=== PATIENT | male | born 1960 | race African-American/Black ===

== ENCOUNTER 2017-12-26 07:35 | Inpatient (IN) | payer OTHER ==
[2017-12-26] MEDS ORDERED: Morphine INJ* 4 MG/ML 1 ML SYRINGE (NEW SYRINGE VERSION) ONE (07:40)
[2017-12-26] MEDS ORDERED: Morphine INJ* 4 MG/ML 1 ML CARPUJECT IV ONE (07:42)
[2017-12-26] MEDS ORDERED: Furosemide IV* 10 MG/ML VIAL (40 MG) ONE (07:42)
[2017-12-26] MEDS ORDERED: Furosemide IV* 10 MG/ML VIAL (40 MG) IV ONE (07:42)
--- OUTSIDE RECORDS SUMMARY | 2017-12-26 07:42 | XMS REPORT ---
:1960 External Reference #:[id number] Author Organization [facility] Address [address] [place] [address] Phone [phone] Care Team Providers Name Role Phone Bismark Pacheco M.D. 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 Active without macular edema, bi Onset: 12/02/2016 Type 2 diab with mild nonp rtnop Bismark Hernandez M.D. Active without macular edema, bi Onset: 12/02/2016 Combined form of senile cataract Bismark Hernandez M.D. Active Onset: 06/01/2015 Nonproliferative diabetic retinopathy Bismark Hernandez M.D. 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 Active type 2 diabetes mellitus Family History Date Family Member(s) Problem(s) Comments Father No Current Problems Mother No Current Problems Social History Type Date Description Comments Marital Status Legal Status: Occupation [employer] Occupation [employer] Work Status Full-Time Employment ETOH Use Rarely consumes alcohol Smoking Patient has never smoked Recreational Drug Use Denies Drug Use Daily Caffeine Consumes on average 1 cup of regular coffee per day Allergies, Adverse Reactions, Alerts Date Description Reaction Status Severity Comments 05/28/2015 NKDA active Medications Medication Date Status Form Strength Qnty SIG Indications Ordering Provider Lantus Active Solution 100Unit/M Breiman, Solostar /0000 Pen-Injec L Bismark saez M.D. Desipramine Active Tablets 50mg Breiman, HCL /0000 Bismark Mayers Metformin HCL Active Tablets 1000mg Breiman, /0000 Bismark Mayers Duloxetine HCL Active Caps DR 60mg Breiman, /0000 Part Bismark Mayers Novolog Active Solution 100Unit/M Breiman, Flexpen /0000 Pen-Injec L Bismark saez M.D. Humalog Active Solution 100Unit/M Breiman, Kwikpen /0000 Pen-Injec L Bismark saez M.D. Losartan Active Tablets 50mg Unknown Potassium /0000 Atorvastatin Active Tablets 20mg take 1 tablet Unknown Calcium /0000 by mouth every evening Trulicity Active Solution 1.5mg/0.5 Inject 0.5ML Unknown /0000 Pen-Injec ML Subcutaneously t Every Week Amlodipine Active Tablets 5mg Unknown Besylate /0000 Atenolol Hx Tablets 50mg Breiman, /0000 Bismark Grimm M.D. 12/03 Medications Administered in Office Medication Date Status Form Strength Qnty SIG Indications Ordering Provider Unclassified Administered Injection Bismark [employer]12 Omar Hernandez M.D. Results Description No Information Procedures Date CPT Code Description Status 06/01/2017 26467 Scanning Computerized Opthalmic Diagnostic Posterior Completed Seg Retina 06/01/2017 28186 Est Patient Comprehensive Exam Completed 12/02/2016 15852 Scanning Computerized Opthalmic Diagnostic Posterior Completed Seg Retina 12/02/2016 67949 Est Patient Comprehensive Exam Completed 06/02/2016 14630 Scanning Computerized Opthalmic Diagnostic Posterior Completed Seg Retina 06/02/2016 92645 Est Patient Comprehensive Exam Completed 12/03/2015 26362 Scanning Computerized Opthalmic Diagnostic Posterior Completed Seg Retina 12/03/2015 35680 Est Patient Comprehensive Exam Completed 06/01/2015 62839 Scanning Computerized Opthalmic Diagnostic Posterior Completed Seg Retina 06/01/2015 91881 Est Patient Comprehensive Exam Completed 12/02/2014 88989 Fundus Photography With Interpretation And Report Completed 12/02/2014 53525 Est Patient Comprehensive Exam Completed 05/19/2014 19403 Scanning Computerized Opthalmic Diagnostic Posterior Completed Seg Retina 05/19/2014 93593 Est Patient Intermediate Exam Completed 11/18/2013 48465 Est Patient Comprehensive Exam Completed 11/18/2013 77420 Determination Of Refractive State Completed 11/18/2013 39540 Fundus Photography With Interpretation And Report Completed 05/07/2013 67834 Scanning Computerized Opthalmic Diagnostic Posterior Completed Seg Retina 05/07/2013 21304 Est Patient Intermediate Exam Completed 12/07/2012 39806 Scanning Computerized Opthalmic Diagnostic Posterior Completed Seg Retina 12/07/2012 29535 Est Patient Intermediate Exam Completed 09/27/2012 94146 Injection Intravitreal Of A Pharmacologic Agent Completed 09/06/2012 47190 Scanning Computerized Opthalmic Diagnostic Posterior Completed Seg Retina 09/06/2012 84484 Est Patient Comprehensive Exam Completed 05/24/2011 95374 Scanning Computerized Opthalmic Diagnostic Posterior Completed Seg Retina 05/24/2011 00782 Est Patient Intermediate Exam Completed 11/16/2010 02908 Est Patient Intermediate Exam Completed 11/16/2010 16484 Determination Of Refractive State Completed 11/16/2010 20796 Scanning Computerized Opthalmic Diagnostic Posterior Completed Seg Retina 11/16/2010 15091 Scanning Laser W/Interp And Report Completed 11/16/2010 61697 Scanning Laser W/Interp And Report Completed 07/15/2010 85942 Scanning Laser W/Interp And Report Completed 07/15/2010 07901 Est Patient Intermediate Exam Completed 12/23/2009 81162 Destruction Lesion Retina, Photocoagulation Completed 12/04/2009 45488 Fluorescein Angiography Completed 11/20/2009 77092 Est Patient Intermediate Exam Completed 11/20/2009 45004 Scanning Laser W/Interp And Report Completed 06/23/2009 14149 Scanning Laser W/Interp And Report Completed 06/23/2009 80905 Est Patient Intermediate Exam Completed 12/12/2008 43112 Destruction Lesion Retina, Photocoagulation Completed 12/11/2008 10734 Destruction Lesion Retina, Photocoagulation Completed 12/09/2008 88820 Fluorescein Angiography Completed 12/04/2008 76052 Scanning Laser W/Interp And Report Completed 12/04/2008 63517 Est Patient Intermediate Exam Completed 08/26/2008 86432 Est Patient Intermediate Exam Completed 08/26/2008 75567 Scanning Laser W/Interp And Report Completed 03/24/2008 22666 Scanning Laser W/Interp And Report Completed 03/24/2008 77308 Est Patient Intermediate Exam Completed 12/24/2007 71058 Destruction Lesion Retina, Photocoagulation Completed 12/12/2007 79651 Destruction Lesion Retina, Photocoagulation Completed 12/04/2007 26050 Fluorescein Angiography Completed 11/30/2007 42304 Scanning Laser W/Interp And Report Completed 11/30/2007 84808 Est Patient Intermediate Exam Completed 07/20/2007 43331 Fundus Photography With Interpretation And Report Completed 07/20/2007 09927 Est Patient Comprehensive Exam Completed 06/27/2006 12808 Est Patient Comprehensive Exam Completed 06/06/2005 41838 Fundus Photography With Interpretation And Report Completed 06/06/2005 65952 Determination Of Refractive State Completed 06/06/2005 44591 Est Patient Comprehensive Exam Completed 03/18/2004 35689 Determination Of Refractive State Completed 03/18/2004 21573 Est Patient Comprehensive Exam Completed Plan of Care 12/04/2017 - Bismark Hernandez M.D.[id number] Type 2 diab with mild nonp rtnop without macular edema, biComments:Smoking can increase the risk of developing or worsening any eye related disease, as well as affect your overall health. If you are a smoker, we strongly recommend that you quit.If you are not a smoker , we strongly recommend that you do not start. I can detect diabetic changes in your eyes. Proper control of your diabetes is important for the health of your eyes. It is important that you keep all of your follow up appointments. Dr. Hernandez has sent a report to your primary care doctor, letting them know the current status of your retina.Follow up:6 Month Follow Up OCT MAC You can expect to have your eyes dilated at your next visit. If Dr. Belleoorders any additional testing, it may require extra time. We recommend that you bring sunglasses, asdilation drops often make you light sensitive until they wear off. We always recommend you bring someone to drive you home if you are uncomfortable driving with your eyes dilated. If you have any questions before your next visit, feel free to call our office at .[phone] Combined forms of age-related cataract, bilateralComments:You have been diagnosed with cataracts. If you are happy with your vision as it is now, then we willsee you at your next scheduled appointment. If you feel like your vision is getting worse before your scheduled appointment, please call Mar or Maria Victoria at [phone].
[2017-12-26] MEDS ORDERED: nitroGLYCERIN DRIP* 25,000 MCG/250 ML BTL ONE (07:49)
[2017-12-26 07:56] LABS: ABS Basophils 0 10^3/ul (0-0.2); ABS Eosinophils 0.1 10^3/ul (0-0.6); ABS Lymphocytes 3.3 10^3/ul (1.0-4.8); ABS Monocytes 0.9 10^3/ul (0-0.8); ABS Neutrophils 3.7 10^3/ul (1.5-7.7); ABS Nucleated RBC 0 10^3/ul; Eosinophil % 1.5 % (0-6); Hematocrit 38 % (42-52); Hemoglobin 12.6 g/dl (14.0-18.0); Mean Corpuscular HGB Conc 33 g/dl (31-36); Mean Corpuscular Hemoglobin 28 pg (27-31); Mean Corpuscular Volume 87 fL (80-94); Mean Platelet Volume 9 um3 (7.4-10.4); Nucleated Red Blood Cells % 0; Platelet Count 268 10^3/ul (150-450); Red Blood Count 4.44 10^6/ul (4.0-5.4); Red Cell Distribution Width 15 % (10.5-15)
[2017-12-26] MEDS ORDERED: Furosemide IV* 10 MG/ML 2 ML VIAL (20 MG) ONE (07:56)
[2017-12-26 08:15] LABS: EGFR Non-African American 68.8 (>60)
[2017-12-26] MEDS ORDERED: Iodixanol* (CONTRAST) 320 MG/ML 100 ML SDV IV ONE (08:28)
[2017-12-26] MEDS ORDERED: Perflutren Lipid Microsphere* 3 ML VIAL ONE (08:55)
[2017-12-26] MEDS ORDERED: Furosemide IV* 10 MG/ML 2 ML VIAL (20 MG) IV SLOW PU SCH (09:00)
--- NOTE | 2017-12-26 09:11 | RAD ---
HISTORY: Shortness of breath COMPARISONS: March 13, 2008 VIEWS: 1: frontal portable view of the chest at 7:55 AM FINDINGS: LINES AND TUBES: None. CARDIOMEDIASTINAL SILHOUETTE: The cardiomediastinal silhouette is normal for portable technique. PLEURA: The costophrenic angles are sharp. No pleural abnormalities are noted. LUNG PARENCHYMA: There is patchy alveolar opacification of the right mid and lower lung hammond] the left lower lung field. There is mild diffuse reticular pattern. ABDOMEN: The upper abdomen is clear. There is no subphrenic gas. BONES AND SOFT TISSUES: No bone or soft tissue abnormalities are noted. IMPRESSION: MIXED INTERSTITIAL AND AIRSPACE DISEASE PREDOMINANTLY OF THE MID AND LOWER LUNGS BILATERALLY. THE DIFFERENTIAL INCLUDES INFECTIOUS PNEUMONITIS AND CONSOLIDATION VERSUS PULMONARY INTERSTITIAL AND ALVEOLAR EDEMA.
[2017-12-26 09:48] LABS: Urine Appearance Clear; Urine Blood Negative (Negative); Urine Color Straw; Urine Ketones Negative (Negative); Urine Protein Negative (Negative); Urine Specific Gravity 1.006 (1.010-1.030); Urine Urobilinogen Negative (Negative)
--- NOTE | 2017-12-26 09:53 | ECHO ---
Patient: THEE LOWERY [facility] Rec#: [id number] : 1960 Date: 12/26/2017 Age: 57y Height: 182.88 cm / 72.0 in Weight: 113.4 kg / 249.9 lbs Sex: M BSA: 2.34 Room#: ED14 Admit Date#: 12/26/2017 Type: Inpatient Referring: Kennedy Ingram MD Reading: Kennedy Ingram MD Net Mender: Ludmila Garber JOVANNI CC: Bismark Pacheco MD Transthoracic Echocardiogram Indication: CP//SOB BP: 174/93 HR: 122 Rhythm: Tachycardia Findings History: DM,HTN,SVT. TO ED today with CP and SOB. Technical Comments: The study was technically limited due to the patient's inability to lay in the left lateral decubitus position. Completed at 0933. The study is technically limited due to patient being on BIPAP during study. Definity was used to enhance images. Study done with patient supine and HOB at 90 degrees. Left Ventricle: Moderate concentric left ventricular hypertrophy is observed. Severe global hypokinesis of the left ventricle is observed. There is severely decreased left ventricular systolic function. The estimated ejection fraction is 20-25%. The assessment of diastolic function is non-diagnostic. Left Atrium: The left atrium is slightly dilated. Right Ventricle: The right ventricular cavity size is normal. The right ventricular global systolic function is mildly to moderately reduced. Right Atrium: The right atrium is mild to moderately dilated. Aortic Valve: The aortic valve is trileaflet. There is no evidence of aortic regurgitation. There is no evidence of aortic stenosis. Mitral Valve: The mitral valve leaflets are mildly thickened. There is a trace of mitral regurgitation. There is no evidence of mitral stenosis. Tricuspid Valve: The tricuspid valve leaflets are normal. There is no evidence of tricuspid valve regurgitation. Unable to estimate the right ventricular systolic pressure. There is no tricuspid stenosis. Pulmonic Valve: The pulmonic valve appears normal. There is no evidence of pulmonic regurgitation. There is no pulmonic stenosis. Pericardium: The pericardium appears normal. Aorta: There is moderate dilatation of the ascending aorta.3.9 cm There is no dilatation of the aortic arch. There is moderate dilatation of the aortic root. Pulmonary Artery: The main pulmonary artery appears normal. Venous: Unable to accurately comment on the size collapsibility of the IVC as the patient in known to be on mechanical ventilation. The inferior vena cava is dilated. Contrast: Definity was used to optimize study. A total of 4 ml used. Intravenous contrast was used to enhance endocardial border definition. Summary: There was not any prior study for comparison. Conclusions The study is technically limited due to patient being on BIPAP during study. Definity was used to enhance images. Study done with patient supine and HOB at 90 degrees. Moderate concentric left ventricular hypertrophy is observed. Severe global hypokinesis of the left ventricle is observed. There is severely decreased left ventricular systolic function. The estimated ejection fraction is 20-25%. The right ventricular global systolic function is mildly to moderately reduced. There is no evidence of aortic stenosis. There is a trace of mitral regurgitation. There is no evidence of tricuspid valve regurgitation. Unable to estimate the right ventricular systolic pressure. The pericardium appears normal. There is moderate dilatation of the ascending aorta.3.9 cm Measurements Name Value Normal Range RVIDd (AP) 2D 3.5 cm (0.9 - 2.6) RVDdMajor (2D) 4.1 cm (2.2 - 4.4) RAd ISD 4CH 5.5 cm (3.4 - 4.9) RA (A4C)W 4.7 cm (2.9 - 4.6) IVSd (2D) 1.2 cm (0.6 - 1) LVPWd (2D) 1.5 cm (0.6 - 1) LVIDd (2D) 5 cm (3.6 - 5.4) LVIDs (2D) 4.5 cm - LV FS (2D) 10 % (25 - 45) Aortic Annulus 2.8 cm (1.4 - 2.6) Ao root diameter (2D) 4 cm (2.1 - 3.5) Ascending Ao 3.9 cm (2.1 - 3.4) Aortic arch 2.8 cm (1.8 - 3.4) Descending Ao 0.5 cm - LA dimension (AP) 2D 4 cm (2.3 - 3.8) LAd ISD 4CH 6.9 cm (2.9 - 5.3) LA ISD 4CH W 3.5 cm (2.5 - 4.5) Name Value Normal Range LA ESV SP 4CH (A/L) 79 ml - LA ESV SP 2CH (A/L) 57 ml - LA ESV BP (A/L) 70 ml - LA ESV BP (A/L) index 29.88 ml/m2 - LA ESV SP 4CH (MOD) 71 ml - LA ESV SP 2CH (MOD) 56 ml - Name Value Normal Range MV E-wave Vmax 0.6 m/sec - MV deceleration time 98.3 msec - MV A-wave Vmax 0.4 m/sec - MV E:A ratio 1.55 ratio - LV septal e' Vmax 0.06 m/sec - LV lateral e' Vmax 0.11 m/sec - LV E:e' septal ratio 10 ratio - LV E:e' lateral ratio 5.45 ratio - Name Value Normal Range AV Vmax 0.7 m/sec - AV VTI 16 cm - AV peak gradient 2 mmHg - AV mean gradient 0.94 mmHg - LVOT Vmax 0.6 m/sec - LVOT VTI 11.1 cm - LVOT peak gradient 1.45 mmHg - LVOT mean gradient 0.68 mmHg - Name Value Normal Range IVC diameter 2.1 cm - Name Value Normal Range PV Vmax 0.7 m/sec - PV peak gradient 2.04 mmHg -
--- NOTE | 2017-12-26 10:46 | RAD ---
HISTORY: Chest pain COMPARISONS: March 13, 2008 TECHNIQUE: Multiple contiguous axial CT scans of the chest were obtained after the administration of nonionic intravenous contrast, timed to the systemic arterial phase of contrast enhancement.. Coronal and sagittal multiplanar reformations are also submitted for review. 3-D volumetric reconstructions of the aorta are submitted for review. FINDINGS: Evaluation is limited due to suboptimal systemic arterial contrast opacification. Attenuation of the aorta is approximately 150 Hounsfield units. NECK AND THYROID: The lower neck and thyroid are unremarkable. CHEST WALL: There is no lower cervical, axillary, or supraclavicular lymphadenopathy by size criteria. HEART AND PERICARDIUM: Coronary calcifications are noted. AORTA AND PULMONARY VASCULATURE: The aorta and pulmonary vasculature are normal for technique. There is no appreciable aneurysmal dilatation or intimal flap of the thoracic aorta. There are no periaortic fluid collections.. MEDIASTINUM: There is no mediastinal lymphadenopathy by size criteria. JOHNY: There is no hilar lymphadenopathy by size criteria. AIRWAY AND ESOPHAGUS: The airway is unremarkable, without endobronchial filling defect. The esophagus is grossly normal. LUNG PARENCHYMA: There is compressive atelectasis of the lung bases bilaterally. PLEURA: There are small bilateral pleural effusions. UPPER ABDOMEN: The upper abdomen is unremarkable. BONES AND SOFT TISSUES: No bone or soft tissue abnormalities are noted. OTHER: None. IMPRESSION: 1. LIMITED STUDY. 2. WITHIN THE LIMITATIONS OF THE STUDY, THERE ARE NO FINDINGS TO SUGGEST AORTIC DISSECTION OR ANEURYSMAL DILATATION. THERE IS NO PERIAORTIC HEMATOMA.
--- NOTE | 2017-12-26 13:04 | HP ---
H&P (Free Text) History and Physical: Critical Care Medicine Admission Note (H&P) Contacted by Dr Sánchez in ER to see patient who presented in respiratory distress via EMS. Patient developed acute onset chest discomfort and sensation of fluid in his chest that he could not clear. He was hypertensive during transport and was given NTG SL once. Patient urgently moved to noninvasive face mask ventilation to stabilize post arrival to ER. He was felt to have "flash" pulmonary edema and given Lasix. An ECHO was performed revealing depressed LV function. When seen in ER patient was awake and fairly comfortable. Was still on BiPAP with FiO2 100 which resulted in SpO2 100. Patient was requesting a break from the mask. He relates no prior such symptoms in past. He has otherwise been in his usual state of health. When pressed re alterations in his level of physical activity and tolerance he relates it has declined a little but nothing os significance in his eyes. Allergy: shellfish and cats PMH DM, PSVT, Depression Medications include: Duloxetine 60 mg BID, Desipramine 150 mg daily, Duleglutide 1.5 mg SQ weekly, Gisele 60 mg daily, Lantis 50 units daily SQ, Correctional Lispro variable on a scale related to carbohydrate intake, Metformin 500 mg BID, Losartan 50 mg daily, and Norvasc 5 mg daily Soc has spouse and daughter at his bedside, denies tobacco, occ EtOH Fam Hx mother with renal failure, brother of cardiac disease ROS otherwise non revealing SBP 105 HR 80 RR 22 SpO2 99-100 Skin no diaphoresis, no cyanosis Sclerae anicteric Oral mucosa pink Full face mask in place limitting evaluation Neck supple Lungs with bilateral air entry, no wheezes Cor RRR no rub, no murmur Abd soft, nontender Ext no edema CXR mild pulm congestion ECHO LVH, LVEF 20-25%, mild-mod RV dysfunction, dilation of aortic root and ascending aorta CTA Chest...nonrevealing WBC 8.0 Hgb 12.6 Plt 268 INR 27.9 K 3.6 BUN/Creat 16/1.1 Gluc 100-160 Alb 4.3 IMP: Acute Hypoxemic Respiratory Failure due to acute pulmonary edema...stabilizing Cardiomyopathy...biventricular per ECHO with Lt worse than Rt Hx DM Hx PSVT Hx Depression PLAN: Admit Wean from BiPAP to either HF NC or if possible to low flow NC Serial cardiac enzymes Cardiology Consult Once able to take PO to resume Insulin regimen and Metformin ASA daily Statin Duloxetine Desipramine Gisele Losartan To assess re Norvasc in event that a B-nga is favored by Cardiology
[2017-12-26] MEDS ORDERED: Dextrose 50% Syringe 50 ML* 25 GM/50 ML SYRINGE IV PUSH PRN (13:52)
[2017-12-26] MEDS ORDERED: Enoxaparin(*) 40 MG/0.4 ML SYR SUBCUT SCH (14:00)
[2017-12-26] MEDS ORDERED: Heparin DRIP 25,000 UNITS(*) 25,000 UNITS/500 ML BAG IVPB SCH (16:30)
[2017-12-26] MEDS ORDERED: Atorvastatin* 80 MG TAB PO ONE (16:39)
--- NOTE | 2017-12-26 18:07 | CONS ---
CC: Dr. Bismark Pacheco * CARDIOLOGY CONSULTATION: DATE OF CONSULT: 12/26/17 INDICATION FOR CONSULTATION: Congestive heart failure, pulmonary edema. HISTORY OF PRESENT ILLNESS: The patient is a 57-year-old gentleman with a history of diabetes, hypertension, who came to the emergency room because of flash pulmonary edema. The patient and his state that he was feeling well yesterday, he had no symptoms. He denies any recent shortness of breath. Denies any orthopnea. Denies any palpitations. Through his , the patient reports that he got up at 6:30 this morning, he felt nauseous and then had shortness of breath. The patient's went up to see him. He was able to talk and give statements that he was short of breath and slightly nauseous. He felt like his heart was racing. His decided to bring him to the hospital. However, within just a few minutes or so, his respiratory status declined and was unable to talk in full sentences and was gasping for breath. At that time, she called 911. On arrival of 911, the patient was in extreme respiratory distress. He was placed on a BiPAP machine. He was tachycardic to 145. He was hypertensive with a blood pressure of 180. The patient transported to the emergency room. On arrival to the emergency room, his EKG showed sinus tachycardia of 140. He was on a BiPAP machine. When I saw him, his blood pressure was 170/70 and seemed more comfortable on the BiPAP machine. As I was interviewing the patient and his , his heart rate came down to 110 beats per minute, clearly in sinus tachycardia. In reviewing his recent history, the patient's states that they went to the emergency room in [place] this past April with an episode of hypotension and tachycardia. At that time, the patient's medications were adjusted. Since April , the patient has felt well. He has been a little fatigued, but has denied any significant change in his exercise status. He denied any orthopnea. He denied any palpitations. He denied any lightheadedness, dizziness, or syncope. PAST MEDICAL HISTORY: Significant for hypertension, diabetes, hypercholesterolemia, and tachycardia. PAST SURGICAL HISTORY: Ulnar nerve release in 2013. OUTPATIENT MEDICATIONS: 1. Metformin 1000 mg b.i.d. 2. Insulin as directed. 3. Gisele 60 mg b.i.d. 4. Desipramine 150 mg daily. 5. Cymbalta 60 mg b.i.d. 6. Lispro insulin as directed. 7. Losartan 50 mg daily. 8. Atorvastatin 20 mg a day. 9. Trulicity 1.5 mg subcu weekly. 10. Multivitamin a day. 11. Vitamin D tablets daily. 12. Aspirin 81 mg a day. 13. Amlodipine 5 mg a day. ALLERGIES: SHELLFISH. No drug allergies. SOCIAL HISTORY: The patient is . He has 1 child. He denies significant alcohol intake, perhaps 1 or 2 drinks a week. No illicit drug use. No tobacco use. FAMILY HISTORY: No family history of early coronary artery disease. He did have a second cousin that had a cardiomyopathy of unclear origin. PHYSICAL EXAMINATION: Temperature 95.1, heart rate is 110, blood pressure 174/ 93, respiratory rate is 38, oxygen saturation 98% on BiPAP. Sclerae anicteric. Oropharynx is pink without erythema. Carotids are unable to be auscultated. Cardiac Exam: Distant heart sounds. S1, S2 without any obvious murmurs, rubs, or gallops. PMI is normal. Lungs have BiPAP breath sounds. No obvious dullness to percussion. Abdomen is soft, nontender, nondistended with normoactive bowel sounds. Extremities show no edema. He has 2+ pulses throughout. The patient is awake and alert. He is unable to speak because of the BiPAP. The patient does move all 4 extremities equally. DIAGNOSTIC STUDIES/LAB DATA: CBC within normal limits. Chemistry is within normal limits. BUN 16, creatinine 1.1. AST and ALT are normal. Troponin level 0.08. BNP 370. TSH is pending. The patient did have an echocardiogram in the emergency room. His echocardiogram shows severely reduced LV systolic function, ejection fraction of 20%, it is global hypokinesis. His right ventricle has mild hypokinesis, no significant valvular abnormalities, no evidence of pericardial effusion. EKG showed sinus tachycardia with nonspecific T-wave abnormalities. IMPRESSION AND PLAN: This is a 57-year-old gentleman who was admitted to the hospital with flash pulmonary edema of unclear origin. The patient's echocardiogram does show severe cardiomyopathy, again of unclear origin. His valvular status is unremarkable. He does not have any significant alcohol history. For now, my recommendation is to continue to treat him symptomatically. The patient will remain on BiPAP. The patient will use diuretics as necessary. I would begin Coreg 3.125 mg b.i.d. as well as lisinopril 5 mg a day. The patient will start an aspirin a day. For workup of his cardiomyopathy, the patient should get an HIV test. The patient should get a cardiac catheterization at some point. The patient will likely need to be referred to a tertiary center for his cardiomyopathy. This likely could be done as an outpatient. [id number]/[facility] #: [id number] [facility]
[2017-12-26 18:24] LABS: ABS Basophils 0.1 10^3/ul (0-0.2); ABS Eosinophils 0 10^3/ul (0-0.6); ABS Lymphocytes 2.2 10^3/ul (1.0-4.8); ABS Monocytes 0.5 10^3/ul (0-0.8); ABS Neutrophils 5.4 10^3/ul (1.5-7.7); ABS Nucleated RBC 0 10^3/ul; Eosinophil % 0.5 % (0-6); Hematocrit 35 % (42-52); Hemoglobin 11.6 g/dl (14.0-18.0); Lymphocyte % 26.6 % (25-47); Mean Corpuscular HGB Conc 33 g/dl (31-36); Mean Corpuscular Hemoglobin 28 pg (27-31); Mean Corpuscular Volume 86 fL (80-94); Mean Platelet Volume 9 um3 (7.4-10.4); Nucleated Red Blood Cells % 0; Platelet Count 219 10^3/ul (150-450); Red Blood Count 4.09 10^6/ul (4.0-5.4); Red Cell Distribution Width 15 % (10.5-15); White Blood Count 8.2 10^3/ul (3.5-10.8)
[2017-12-26] MEDS: Insulin LISPRO* 1 UNITS UNIT SUBCUT SCH ×2 (19:24→22:14)
[2017-12-26] MEDS: Heparin VIAL(*) 5000 UNITS/ML VIAL (FIVE THOUSAND) IV SCH (20:03)
[2017-12-26] MEDS ORDERED: Atorvastatin* 20 MG TAB PO SCH (21:00)
[2017-12-26] MEDS: Metoprolol Tartrate TAB* 25 MG PO SCH (22:12)
[2017-12-26] MEDS: DULoxetine DR CAP* 60 MG CAP.DR PO SCH (22:12)
[2017-12-26] MEDS: Desipramine TAB* 50 MG PO SCH (22:12)
[2017-12-27] MEDS ORDERED: Morphine INJ* 2 MG/ML 1 ML CARPUJECT IV PRN (01:49)
[2017-12-27] MEDS ORDERED: Morphine INJ* 2 MG/ML 1 ML CARPUJECT ONE (02:14)
[2017-12-27] MEDS ORDERED: Heparin VIAL(*) 5000 UNITS/ML VIAL (FIVE THOUSAND) IV SCH (03:00)
[2017-12-27 04:23] LABS: ABS Basophils 0.1 10^3/ul (0-0.2); ABS Eosinophils 0 10^3/ul (0-0.6); ABS Lymphocytes 1.2 10^3/ul (1.0-4.8); ABS Monocytes 0.7 10^3/ul (0-0.8); ABS Neutrophils 7.1 10^3/ul (1.5-7.7); ABS Nucleated RBC 0 10^3/ul; Eosinophil % 0.4 % (0-6); Hematocrit 36 % (42-52); Hemoglobin 11.8 g/dl (14.0-18.0); Lymphocyte % 13.3 % (25-47); Mean Corpuscular HGB Conc 33 g/dl (31-36); Mean Corpuscular Hemoglobin 28 pg (27-31); Mean Corpuscular Volume 86 fL (80-94); Mean Platelet Volume 9 um3 (7.4-10.4); Nucleated Red Blood Cells % 0.1; Platelet Count 214 10^3/ul (150-450); Red Blood Count 4.15 10^6/ul (4.0-5.4); Red Cell Distribution Width 15 % (10.5-15); White Blood Count 9.2 10^3/ul (3.5-10.8)
[2017-12-27 04:40] LABS: EGFR Non-African American 80.4 (>60)
[2017-12-27] MEDS: Heparin VIAL(*) 5000 UNITS/ML VIAL (FIVE THOUSAND) IV SCH (05:46)
[2017-12-27] MEDS: DULoxetine DR CAP* 60 MG CAP.DR PO SCH ×2 (08:42→20:36)
[2017-12-27] MEDS: Aspirin EC Low Dose* 81 MG TAB.EC PO SCH (08:42)
[2017-12-27] MEDS: Insulin LISPRO* 1 UNITS UNIT SUBCUT SCH ×4 (08:42→20:30)
[2017-12-27] MEDS: Metoprolol Tartrate TAB* 25 MG PO SCH ×2 (08:43→20:37)
[2017-12-27] MEDS: Cetirizine* 10 MG TAB PO SCH (08:45)
[2017-12-27] MEDS ORDERED: Losartan TAB* 25 MG PO SCH (09:00)
[2017-12-27] MEDS ORDERED: Pneumococcal *Vac Polyvalent 0.5 ML VIAL IM ONE (09:00)
[2017-12-27] MEDS ORDERED: Influenza VAC *QUAD* 2017-18* 0.5 ML SYRINGE IM ONE (09:00)
--- NOTE | 2017-12-27 09:20 | PN ---
Progress Note - Progress Note Date of Service: 12/27/17 Note: [facility] Progress Note Awake, alert Noted a brief episode of dyspnea last night Has been on low flow NC since ytdy afternoon Correction...had not been on a B-nga recently...was changed by PMD from Atenolol to Amlodipine which he thought was a newer version in same class as Atenolol SBP 118 HR 112 RR 25 SpO2 98 Skin no diaphoresis, no cyanosis Sclerae anicteric Oral mucosa pink Neck supple Lungs with bilateral air entry, no wheezes Cor RRR no rub, no murmur Abd soft, nontender Ext no edema Neuro speech fluent, moves all 4 extrems, appropriately interactive, gaze focused ECHO LVH, LVEF 20-25%, mild-mod RV dysfunction, dilation of aortic root and ascending aorta WBC 9.2 Hgb 11.8 Plt 214 K 3.7 BUN/Creat 15/0.97 Mg 1.7 TG 61 LDL 36 Troponin peaked in 2.0's...last two values 0.1 and 0.11 IMP: Acute Hypoxemic Respiratory Failure due to acute pulmonary edema...resolved Cardiomyopathy...biventricular per ECHO with Lt worse than Rt Troponin leak c/w acute myocardial injury....possibly demand related in light of presenting symptoms with HTN and hypoxia Hx DM Hx PSVT Hx Depression PLAN: To increase Lopresor to 12.5 mg PO BID Lasix 20 mg PO daily Low flow NC Await further direction from Cardiology as to testing ASA daily Statin Duloxetine Desipramine [employer] Losartan in light of low normal BP in favor of titrating B- nga upward...will reintroduce as tolerated down the road To stop Norvasc all together
[2017-12-27] MEDS: Furosemide TAB* 20 MG PO SCH (12:12)
[2017-12-27] MEDS ORDERED: metFORMIN* 500 MG TAB PO SCH (17:00)
--- NOTE | 2017-12-27 17:35 | PN ---
Subjective Date of Service: 12/27/17 - CC: sob Interval History: The patient's breathing is back to normal. No chest pain. Tired, did not sleep that well. No racing or palpitations of the heart. The patient's informed me of hypotensive episode last summer for which he was seen in [facility] with echo there. Medications Active Medications: Aspirin (Aspirin Ec Low Dose*) 81 mg PO DAILY [facility] Last Admin: 12/27/17 08:42 Dose: 81 mg Cetirizine HCl (Zyrtec*) 5 mg PO DAILY [facility] PRN Reason: Protocol Last Admin: 12/27/17 08:45 Dose: 5 mg Desipramine HCl (Norpramin Tab*) 50 mg PO BEDTIME [facility] Last Admin: 12/26/17 22:12 Dose: 50 mg Dextrose (D50w Syringe 50 Ml*) 12.5 gm IV PUSH .FOR FS < 60 - SS PRN PRN Reason: FS < 60 Duloxetine HCl (Cymbalta Cap*) 60 mg PO BID [facility] Last Admin: 12/27/17 08:42 Dose: 60 mg Furosemide (Lasix Tab*) 20 mg PO DAILY [facility] Last Admin: 12/27/17 12:12 Dose: 20 mg Heparin Sodium (Porcine) (Heparin Vial(*)) 0 units IV .PER PROTOCOL [facility] PRN Reason: Protocol Last Admin: 12/27/17 05:46 Dose: 4,000 units Heparin Sodium/Dextrose (Heparin Drip 25,000 Units(*)) 25,000 units in 500 mls @ 0 mls/hr IVPB PER RATE [facility]; Per Protocol PRN Reason: Protocol Insulin Human Lispro (Humalog*) 0 units SUBCUT ACHS [facility] PRN Reason: Protocol Last Admin: 12/27/17 16:42 Dose: 3 units Metformin HCl (Glucophage*) 500 mg PO 0800,1700 [facility] Last Admin: 12/27/17 16:42 Dose: 500 mg Metoprolol Tartrate (Lopressor Tab*) 12.5 mg PO Q12HR [facility] Morphine Sulfate (Morphine Inj (Syringe)*) 2 mg IV Q4H PRN PRN Reason: PAIN - MILD Last Admin: 12/27/17 02:16 Dose: 2 mg Objective Vital Signs: Temp Pulse Resp BP Pulse Ox 98.9 F 115 18 98/63 96 12/27/17 14:42 12/27/17 14:42 12/27/17 14:42 12/27/17 14:42 12/27/17 14:42 Oxygen Devices in Use Now: Nasal Cannula Appearance: Obese male, lying flat, no respiratory distress. Eyes: No Scleral Icterus, PERRLA Ears/Nose/Mouth/Throat: Clear Oropharnyx, Mucous Membranes Moist Neck: NL Appearance and Movements; NL JVP, Trachea Midline, No Thyroid Enlargement, Masses Respiratory: Symmetrical Chest Expansion and Respiratory Effort - distant breath sounds, no wheezing or rales. Cardiovascular: RRR - summation kallie heard. Abdominal: No Hepatosplenomegaly - obese, soft. Extremities: No Edema, No Clubbing, Cyanosis Skin: No Rash or Ulcers Neurological: Alert and Oriented x 3 Lines/Tubes/Other Access: Clean, Dry and Intact Peripheral IV Laboratory Results: 12/27/17 04:12 12/27/17 04:12 APTT 57.0 seconds (26.0-36.3) H 12/27/17 12:55 Total Bilirubin 0.40 mg/dL (0.2-1.0) 12/26/17 07:46 AST 25 U/L (13-39) 12/26/17 07:46 ALT 26 U/L (7-52) 12/26/17 07:46 Alkaline Phosphatase 52 U/L (34-104) 12/26/17 07:46 CK-MB (CK-2) 4.9 ng/mL (0.6-6.3) 12/26/17 07:46 B-Natriuretic Peptide 370 pg/mL (-100) H 12/26/17 07:46 Total Protein 7.4 g/dL (6.4-8.9) 12/26/17 07:46 Albumin 4.3 g/dL (3.2-5.2) 12/26/17 07:46 Globulin 3.1 g/dL (2-4) 12/26/17 07:46 Albumin/Globulin Ratio 1.4 (1-3) 12/26/17 07:46 Triglycerides 61 mg/dL 12/27/17 04:12 Cholesterol 98 mg/dL 12/27/17 04:12 LDL Cholesterol 36 mg/dL 12/27/17 04:12 HDL Cholesterol 49.6 mg/dL 12/27/17 04:12 TSH 1.22 mcIU/mL (0.34-5.60) 12/26/17 07:46 12/26/17 12/26/17 12/27/17 14:40 21:40 02:23 Troponin I 2.34 H* 0.10 H* 0.11 H* Diagnostic Imaging: ECHO 12/26/17 EF 25%, LVH. ECHO [facility] summer 2016: awaiting results. EKG Data: ECG 6 AM today, ST, non specific ST changes. Rate lower than admission. C/w 2007, normal ECG 2007. Assessment/Plan 57 yo male awoke 6 AM yesterday with acute onset SOB/CHF. Found to have a severe CM, sinus tachycardia and has responded well to diuresis clinically. CM: Large differential including: DM/HTN burned out. Ischemic SVT induced (non by hx but could be having at night as hx EDIN). Viral/idiopathic. Continue with medical management, continue metoprolol, add ACEI when BP allows, possible aldactone in the future. I recommended heart catheterization, risks/benefits and specifics discussed with the patient and his , they are amenable to proceeding. A LVEDP measurement could be helpful in addition to C's. I stopped Metformin for cath, but this can contribute to CHF, I would recommend consideration of other DM meds to replace. Await results of cath prior to additional recommendations. Attempting to get prior ECHO from [facility]. SVT: continue on Tele.
--- NOTE | 2017-12-27 18:16 | ED ---
Amador Dias Angela, scribed for Jared Sánchez MD on 12/26/17 at 0815 . HPI Chest Pain - HPI Summary HPI Summary: This pt is a 57 y/o male presenting to [facility] via EMS c/o sudden onset of chest pain. EMS reports they found the pt sitting on a chair complaining of chest pain. His heart rate initially was 130. Pt states his chest pain does not radiate. EMS notes the pt became more anxious and had more difficulty breathing. Pt was administered 1 nitroglycerin for hypotension [employer]CR[employer] by EMS. PMHx: diabetes and SVT. - History of Current Complaint Chief Complaint: EDChestWallPain Hx Obtained From: Patient, EMS Onset/Duration: Started Hours Ago, Still Present Timing: Lasting Hours Current Severity: Moderate Pain Intensity: 5 Pain Scale Used: 0-10 Numeric Chest Pain Location: Diffuse Chest Pain Radiates: No Aggravating Factor(s): Other: - anxiety Alleviating Factor(s): Nothing Associated Signs and Symptoms: Positive: Chest Pain, Shortness of Breath, Other : - anxiety - Allergy/Home Medications Allergies/Adverse Reactions: Allergies Allergy/AdvReac Type Severity Reaction Status Date / Time shellfish derived Allergy Numbness Verified 12/26/17 14:21 And Tingling Home Medications: Home Medications Aspirin EC Low Dose* [Ecotrin EC Low Dose 81 MG*] 81 mg PO DAILY 12/26/17 [ History Confirmed 12/26/17] Atorvastatin* [Lipitor*] 20 mg PO DAILY 12/26/17 [History Confirmed 12/26/17] Cholecalciferol TAB* [Vitamin D TAB*] 1,000 unit PO DAILY 12/26/17 [History Confirmed 12/26/17] DULoxetine CAP* [Cymbalta CAP*] 60 mg PO BID 12/26/17 [History Confirmed ] Desipramine TAB* [Norpramin TAB*] 150 mg PO DAILY 12/26/17 [History Confirmed ] Dulaglutide (NF) [Trulicity (NF)] 1.5 mg SUBCUT WEEKLY 12/26/17 [History Confirmed 12/26/17] Fexofenadine (NF) [Gisele (NF)] 60 mg PO BID 12/26/17 [History Confirmed ] Insulin GLARGINE(*) [Lantus(*)] 50 units SUBCUT QAM 12/26/17 [History Confirmed 12/26/17] Insulin LISPRO* [HumaLOG*] 45 units SUBCUT TID AC 12/26/17 [History Confirmed ] Losartan TAB* [Cozaar TAB*] 50 mg PO DAILY 12/26/17 [History Confirmed 12/26/17] Multivitamins/Minerals TAB* [Theragran/minerals TAB*] 1 tab PO DAILY 12/26/17 [ History Confirmed 12/26/17] [place]-3 Fatty Acids (Nf) [Fish Oil (NF)] 1,000 mg PO DAILY 12/26/17 [History Confirmed 12/26/17] amLODIPine TAB* [Norvasc 5 mg TAB*] 5 mg PO DAILY 12/26/17 [History Confirmed ] PMH/Surg Hx/FS Hx/Imm Hx Endocrine/Hematology History: Reports: Hx Diabetes Cardiovascular History: Reports: Other Cardiovascular Problems/Disorders - SVT- ON ATENOLOL Sensory History: Reports: Hx Contacts or Glasses - GLASSES Denies: Hx Hearing Aid Opthamlomology History: Reports: Hx Contacts or Glasses - GLASSES Psychiatric History: Reports: Hx Depression - Surgical History Surgery Procedure, Year, and Place: TONSILLECTOMY 1971. I+D RIGHT FOOT SEVERAL YRS AGO Hx Anesthesia Reactions: No Infectious Disease History: Unable to Obtain/Confirm Infectious Disease History: Denies: Traveled Outside the [place] in Last 30 Days - Family History Known Family History: Positive: Diabetes Family History: [place] - Social History Alcohol Use: Occasionally Substance Use Type: Reports: None Smoking Status (MU): Never Smoked Tobacco Review of Systems Negative: Fever Positive: Chest Pain Positive: Shortness Of Breath Neurological: Negative All Other Systems Reviewed And Are Negative: Yes Physical Exam - Summary Physical Exam Summary: VITAL SIGNS: Reviewed. GENERAL: Patient is a well-developed and nourished male in respiratory distress. Pt is unable to speak in full sentences secondary to respiratory distress. HEAD AND FACE: No signs of trauma. No ecchymosis, hematomas or skull depressions. No sinus tenderness. EYES: PERRLA, EOMI x 2, No injected conjunctiva, no nystagmus. EARS: Hearing grossly intact. Ear canals and tympanic membranes are within normal limits. MOUTH: Oropharynx within normal limits. NECK: Supple, trachea is midline, no adenopathy, no JVD, no carotid bruit, no c- spine tenderness, neck with full ROM. CHEST: Symmetric, no tenderness at palpation LUNGS: Diffuse crackles all over the place. CVS: Regular rate and rhythm, S1 and S2 present, no murmurs or gallops appreciated. ABDOMEN: Soft, non-tender. No signs of distention. No rebound no guarding, and no masses palpated. Bowel sounds are normal. EXTREMITIES: FROM in all major joints, no edema, no cyanosis or clubbing. NEURO: Alert and oriented x 3. No acute neurological deficits. Speech is normal and follows commands. SKIN: Dry and warm PSYCH: Anxious. Triage Information Reviewed: Yes Vital Signs On Initial Exam: Initial Vitals Temp Pulse Resp BP Pulse Ox 95.1 F 147 38 174/93 98 12/26/17 07:40 12/26/17 07:40 12/26/17 07:40 12/26/17 07:40 12/26/17 07:40 Vital Signs Reviewed: Yes Diagnostics - Vital Signs Vital Signs Temp Pulse Resp BP Pulse Ox 12/26/17 07:40 95.1 F 147 38 174/93 98 - Laboratory Lab Results: Lab Results 12/26/17 12/26/17 Range/Units 07:46 07:46 WBC 8.0 (3.5-10.8) 10^3/ul RBC 4.44 (4.0-5.4) 10^6/ul Hgb 12.6 L (14.0-18.0) g/dl Hct 38 L (42-52) % MCV 87 (80-94) fL MCH 28 (27-31) pg MCHC 33 (31-36) g/dl RDW 15 (10.5-15) % Plt Count 268 (150-450) 10^3/ul MPV 9 (7.4-10.4) um3 Neut % (Auto) 46.2 (38-83) % Lymph % (Auto) 41.0 (25-47) % [place] % (Auto) 10.7 H (1-9) % Eos % (Auto) 1.5 (0-6) % Baso % (Auto) 0.6 (0-2) % Absolute Neuts (auto) 3.7 (1.5-7.7) 10^3/ul Absolute Lymphs (auto) 3.3 (1.0-4.8) 10^3/ul Absolute Monos (auto) 0.9 H (0-0.8) 10^3/ul Absolute Eos (auto) 0.1 (0-0.6) 10^3/ul Absolute Basos (auto) 0 (0-0.2) 10^3/ul Absolute Nucleated RBC 0 10^3/ul Nucleated RBC % 0 APTT 27.9 (26.0-36.3) seconds Result Diagrams: 12/27/17 04:12 12/27/17 04:12 Lab Statement: Any lab studies that have been ordered have been reviewed, and results considered in the medical decision making process. - Radiology Chest XR Xray Interpretation: Positive (See Comments) - IMPRESSION: Mixed interstitial and airspace disease predominantly of the mid and lower lungs bilaterally. The differential includes infectious pneumonitis and consolidation versus pulmonary interstitial and alveolar edema. Dr. Sánchez has reviewed this radiology report. Radiology Interpretation Completed By: Radiologist - CT Chest CTA CT Interpretation: No Acute Changes - IMPRESSION: 1. Limited study. 2. Within the limitations of the study there are no findings to suggest aortic dissection or aneurysmal dilatation. There is no periaortic hematoma. Dr. Sánchez has reviewed this radiology report. CT Interpretation Completed By: Radiologist - EKG 08:11 Cardiac Rate: Tachycardia EKG Rhythm: Sinus Tachycardia - at 127 bpm EKG Interpretation: No ST elevation. Dr. Ingram reviewed this EKG. - Additional Comments Diagnostic Additional Comments: Transthoracic Echocardiogram, as per Dr. Ingram: The study is technically limited due to patient being on BIPAP during study. Definity was used to enhance images. Study done with patient supine and HOB at 90 degrees. Moderate concentric left ventricular hypertrophy is observed. Severe global hypokinesis of the left ventricle is observed. There is severely decreased left ventricular systolic function. The estimated ejection fraction is 20-25%. The right ventricular global systolic function is mildly to moderately reduced. There is no evidence of aortic stenosis. There is a trace of mitral regurgitation. There is no evidence of tricuspid valve regurgitation. Unable to estimate the right ventricular systolic pressure. The pericardium appears normal. There is moderate dilatation of the ascending aorta 3.[address] Sánchez has reviewed this report. Re-Evaluation - Re-Evaluation First Eval Re-Evaluation Time: 08:17 Comment: Dr. Ingram, insole beveler, is at bedside. Chest Pain Course/Dx - Course Assessment/Plan: This pt is a 57 y/o male presenting to [facility] via EMS c/o sudden onset of chest pain. EMS reports they found the pt sitting on a chair complaining of chest pain. His heart rate initially was 130. Pt states his chest pain does not radiate. EMS notes the pt became more anxious and had more difficulty breathing. Pt was administered 1 nitroglycerin for hypotension [employer] by EMS. PMHx: diabetes and SVT. Test results without any significant abnormalities except for slight anemia, glucose of 155, lactic acid of 2.7, troponin of 0.08, BNP of 370. Urinalysis is negative for UTI. Chest XR: Mixed interstitial and airspace disease predominantly of the mid and lower lungs bilaterally. The differential includes infectious pneumonitis and consolidation versus pulmonary interstitial and alveolar edema. I believe the pt has flash pulmonary edema. In the ED course the pt was placed on a monitor and I obtained IV access. The pt was given Lasix, morphine, and he was placed on Bipap. EKG did not show ST elevations. The pt is feeling better and his heart rate increased to 100 bpm. I discussed pts case with Dr. Ingram, insole beveler, who came and assessed the pt, and agrees with the diagnosis of flash pulmonary edema. He requested a chest CTA and echocardiogram. Chest CTA: 1. Limited study. 2. Within the limitations of the study there are no findings to suggest aortic dissection or aneurysmal dilatation. There is no periaortic hematoma. Echocardiogram: The study is technically limited due to patient being on BIPAP during study. Definity was used to enhance images. Study done with patient supine and HOB at 90 degrees. Moderate concentric left ventricular hypertrophy is observed. Severe global hypokinesis of the left ventricle is observed. There is severely decreased left ventricular systolic function. The estimated ejection fraction is 20-25%. The right ventricular global systolic function is mildly to moderately reduced. There is no evidence of aortic stenosis. There is a trace of mitral regurgitation. There is no evidence of tricuspid valve regurgitation. Unable to estimate the right ventricular systolic pressure. The pericardium appears normal. There is moderate dilatation of the ascending aorta 3.9 cm. He reports the pt has an ejection fraction of 20% and reports the pt to be admitted to ICU. I discussed with Dr. Jones, senior compensation analyst, and he accepted the pt for admission. Pt is hemodynamically stable, alert and oriented x3. He is improved. - Chest Pain Differential Diagnosis/HQI/PQRI: Acute NC, ACS, Angina, CHF, Chest Wall, GI Disease, Pulmonary Edema - Diagnoses Provider Diagnoses: Flash pulmonary edema, Elevated troponin, rule out NC - Provider Notifications Discussed Care Of Patient With: Kennedy Ingram Time Discussed With Above Provider: 08:11 Instructed by Provider To: Other - I discussed pt care with Dr. Ingram, insole beveler, who will come see the pt in the ED. [10:18] I discussed pt's case with Dr. Jones, senior compensation analyst, who accepted the pt for admission. - Critical Care Time Critical Care Time: 75-104 min Discharge - Discharge Plan Condition: Stable Disposition: ADMITTED TO [facility] The documentation as recorded by the Amador morales Angela accurately reflects the service I personally performed and the decisions made by me, Jared Sánchez MD.
[2017-12-27] MEDS: Heparin DRIP 25,000 UNITS(*) 25,000 UNITS/500 ML BAG IVPB SCH (18:19)
[2017-12-27] MEDS: Desipramine TAB* 50 MG PO SCH (20:35)
[2017-12-28 05:50] LABS: ABS Basophils 0 10^3/ul (0-0.2); ABS Eosinophils 0 10^3/ul (0-0.6); ABS Lymphocytes 1.6 10^3/ul (1.0-4.8); ABS Monocytes 0.6 10^3/ul (0-0.8); ABS Neutrophils 4.3 10^3/ul (1.5-7.7); ABS Nucleated RBC 0 10^3/ul; Eosinophil % 0.7 % (0-6); Hematocrit 34 % (42-52); Hemoglobin 11.2 g/dl (14.0-18.0); Lymphocyte % 23.7 % (25-47); Mean Corpuscular HGB Conc 33 g/dl (31-36); Mean Corpuscular Hemoglobin 28 pg (27-31); Mean Corpuscular Volume 85 fL (80-94); Mean Platelet Volume 9 um3 (7.4-10.4); Nucleated Red Blood Cells % 0; Platelet Count 227 10^3/ul (150-450); Red Blood Count 4.03 10^6/ul (4.0-5.4); Red Cell Distribution Width 15 % (10.5-15); White Blood Count 6.6 10^3/ul (3.5-10.8)
[2017-12-28 05:59] LABS: EGFR Non-African American 79.4 (>60)
[2017-12-28] MEDS ORDERED: NS 0.9% 1000 ML* 1,000 ML IV SCH ×3 (06:00→10:15)
[2017-12-28] MEDS: Heparin VIAL(*) 5000 UNITS/ML VIAL (FIVE THOUSAND) IV SCH (06:46)
[2017-12-28] MEDS: Heparin DRIP 25,000 UNITS(*) 25,000 UNITS/500 ML BAG IVPB SCH (06:47)
[2017-12-28] MEDS: Aspirin EC Low Dose* 81 MG TAB.EC PO SCH (08:36)
[2017-12-28] MEDS: Cetirizine* 10 MG TAB PO SCH (08:36)
[2017-12-28] MEDS: Furosemide TAB* 20 MG PO SCH (08:36)
[2017-12-28] MEDS: DULoxetine DR CAP* 60 MG CAP.DR PO SCH ×2 (08:36→20:30)
[2017-12-28] MEDS: Metoprolol Tartrate TAB* 25 MG PO SCH ×2 (08:36→20:29)
[2017-12-28] MEDS ORDERED: Lidocaine 1% INJ* 10 MG/ML 30 ML SDV ONE (08:37)
[2017-12-28] MEDS ORDERED: Iohexol 350 (CONTRAST) 200 ML MDV IV ONE (08:37)
[2017-12-28] MEDS ORDERED: Midazolam* 1 MG/ML 10 ML VIAL (10 MG) ONE (08:37)
[2017-12-28] MEDS ORDERED: Heparin 2 UNITS/ML IVPREMIX* 2,000 ML IV ONE (08:37)
[2017-12-28] MEDS ORDERED: fentaNYL* 50 MCG/ML 2 ML VIAL (100 MCG VIAL) ONE (08:37)
[2017-12-28] MEDS ORDERED: Heparin(*) 1000 UNIT/ML 10 ML VIAL CATH LAB IV ONE (08:47)
[2017-12-28] MEDS ORDERED: VERAPAMIL 2.5 MG/ML 2 ML VIAL ** 5 mg/2 ml ONE (08:48)
[2017-12-28] MEDS ORDERED: nitroGLYCERIN DRIP* 25,000 MCG/250 ML BTL ONE (08:48)
[2017-12-28] MEDS: Insulin LISPRO* 1 UNITS UNIT SUBCUT SCH ×4 (10:48→20:32)
--- NOTE | 2017-12-28 15:11 | PN ---
Subjective Date of Service: 12/28/17 Interval History: Mr. Low reports feeling quite well today. He denies chest pain or SOB. He further denies nausea or abdominal pain. Objective Active Medications: Aspirin (Aspirin Ec Low Dose*) 81 mg PO DAILY [facility] Cetirizine HCl (Zyrtec*) 5 mg PO DAILY [facility] Desipramine HCl (Norpramin Tab*) 50 mg PO BEDTIME [facility] Dextrose (D50w Syringe 50 Ml*) 12.5 gm IV PUSH .FOR FS < 60 - SS PRN Duloxetine HCl (Cymbalta Cap*) 60 mg PO BID [facility] Furosemide (Lasix Tab*) 20 mg PO DAILY [facility] Heparin Sodium (Porcine) (Heparin Vial(*)) 0 units IV .PER PROTOCOL [facility] Heparin Sodium/Dextrose (Heparin Drip 25,000 Units(*)) 25,000 units in 500 mls @ 0 mls/hr IVPB PER RATE [facility]; Per Protocol Sodium Chloride (Ns 0.9% 1000 Ml*) 1,000 mls @ 50 mls/hr IV .PER RATE [facility] Insulin Human Lispro (Humalog*) 0 units SUBCUT ACHS [facility] Metoprolol Tartrate (Lopressor Tab*) 12.5 mg PO Q12HR [facility] Morphine Sulfate (Morphine Inj (Syringe)*) 2 mg IV Q4H PRN Vital Signs: Temp Pulse Resp BP Pulse Ox 98.5 F 110 16 104/70 94 12/28/17 16:25 12/28/17 16:25 12/28/17 16:25 12/28/17 17:24 12/28/17 16:25 Oxygen Devices in Use Now: Nasal Cannula Appearance: Male lying in bed in NAD Eyes: No Scleral Icterus Ears/Nose/Mouth/Throat: Mucous Membranes Moist Neck: Trachea Midline Respiratory: Symmetrical Chest Expansion and Respiratory Effort, Clear to Auscultation Cardiovascular: NL Sounds; No Murmurs; No JVD, No Edema Abdominal: NL Sounds; No Tenderness; No Distention Lymphatic: No Cervical Adenopathy Extremities: No Edema Skin: No Rash or Ulcers Neurological: Alert and Oriented x 3, NL Muscle Strength and Tone Nutrition: Taking PO's Result Diagrams: 12/28/17 05:35 12/28/17 05:35 Additional Lab and Data: Vital Signs: Temp Pulse Resp BP Pulse Ox 98.5 F 110 16 104/70 94 12/28/17 16:25 02/15/18 16:25 12/28/17 16:25 12/28/17 17:24 12/28/17 16:25 Microbiology and Other Data: . Assess/Plan/Problems-Billing Assessment: Mr. Low is a 57 yo M with PMH of diabetes and hypertension who was admitted on 12/26/17 with sudden onset SOB found to have new diagnosis of severe cardiomyopathy and EF 20-25%. - Patient Problems (1) Systolic CHF Comment: - Newly diagnosed severe CM with EF 20-25% and systolic congestive heart failure. - Continue daily lasix po. (2) Depression Comment: - Continue desipramine and duloxetine. (3) Diabetes Comment: - BG well controlled. - Hold lantus, trulicity and metformin. - Continue lispro SSI coverage with meals. (4) Hyperlipidemia Current Visit: Yes Status: Acute Code(s): E78.5 - HYPERLIPIDEMIA, UNSPECIFIED SNOMED Code(s): 07038809 Comment: - Lipids well controlled. - Continue atorvastatin. (5) Hypertension Current Visit: Yes Status: Acute Code(s): I10 - ESSENTIAL (PRIMARY) HYPERTENSION SNOMED Code(s): 97757581 Comment: - SBP 100s. - Hold losartan. (6) DVT prophylaxis Comment: - Heparin gtt. (7) Full code status Comment: Status and Disposition: Inpatient. Anticipate discharge to home when medically stable.
--- NOTE | 2017-12-28 15:59 | PN ---
Subjective Date of Service: 12/28/17 Objective Active Medications: Aspirin (Aspirin Ec Low Dose*) 81 mg PO DAILY [facility] Cetirizine HCl (Zyrtec*) 5 mg PO DAILY [facility] Desipramine HCl (Norpramin Tab*) 50 mg PO BEDTIME [facility] Dextrose (D50w Syringe 50 Ml*) 12.5 gm IV PUSH .FOR FS < 60 - SS PRN Duloxetine HCl (Cymbalta Cap*) 60 mg PO BID [facility] Furosemide (Lasix Tab*) 20 mg PO DAILY [facility] Heparin Sodium (Porcine) (Heparin Vial(*)) 0 units IV .PER PROTOCOL [facility] Heparin Sodium/Dextrose (Heparin Drip 25,000 Units(*)) 25,000 units in 500 mls @ 0 mls/hr IVPB PER RATE [facility]; Per Protocol Insulin Human Lispro (Humalog*) 0 units SUBCUT ACHS [facility] Metoprolol Tartrate (Lopressor Tab*) 12.5 mg PO Q12HR [facility] Morphine Sulfate (Morphine Inj (Syringe)*) 2 mg IV Q4H PRN Vital Signs - 8 hr 12/28/17 12/28/17 12/28/17 08:00 10:20 10:22 Pulse Rate 106 Respiratory 18 24 Rate Blood Pressure 103/67 (mmHg) O2 Sat by Pulse 98 Oximetry 12/28/17 12/28/17 12/28/17 10:30 10:45 11:00 Pulse Rate 106 108 109 Respiratory 14 16 24 Rate Blood Pressure 104/75 102/73 110/72 (mmHg) O2 Sat by Pulse 96 97 95 Oximetry 12/28/17 12/28/17 12/28/17 11:15 11:19 11:30 Pulse Rate Respiratory 26 Rate Blood Pressure 109/73 114/76 (mmHg) O2 Sat by Pulse 96 Oximetry 12/28/17 12/28/17 11:45 11:49 Pulse Rate 108 Respiratory Rate Blood Pressure 109/70 (mmHg) O2 Sat by Pulse 97 97 Oximetry Oxygen Devices in Use Now: Nasal Cannula Result Diagrams: 12/28/17 05:35 12/28/17 05:35 Additional Lab and Data: Vital Signs: Temp Pulse Resp BP Pulse Ox 98.1 F 108 26 109/70 97 12/28/17 07:32 12/28/17 11:45 12/28/17 11:15 12/28/17 11:45 12/28/17 11:49 Microbiology and Other Data: . Assess/Plan/Problems-Billing Assessment: Mr. Low is a 57 yo male with a PMH of HTN, HLD, diabetes who was admitted on 12/26/17 with sudden onset SOB found to have new diagnosis of severe cardiomyopathy and EF 20-25%. - Patient Problems (1) Systolic CHF Comment: - Newly diagnosed severe CM with EF 20-25% and systolic congestive heart failure. - Continue daily lasix po. (2) Diabetes Comment: - BG well controlled. - Hold lantus, trulicity and metformin. - Continue lispro SSI coverage with meals. (3) Depression SNOMED Code(s): 03010718 Comment: - Continue desipramine and duloxetine. (4) Hypertension Comment: - SBP 100s. - Hold losartan. (5) Hyperlipidemia Comment: - Lipids well controlled. - Continue atorvastatin. (6) DVT prophylaxis Comment: - Heparin gtt. (7) Full code status Status and Disposition: Inpatient. Anticipate discharge to home when medically stable.
[2017-12-28] MEDS: Captopril TAB* 12.5 MG PO SCH (20:31)
[2017-12-28] MEDS: Desipramine TAB* 50 MG PO SCH (20:31)
[2017-12-29] MEDS: Acetaminophen TAB* 325 MG PO PRN ×2 (00:03→22:45)
[2017-12-29 06:17] LABS: ABS Basophils 0 10^3/ul (0-0.2); ABS Eosinophils 0.1 10^3/ul (0-0.6); ABS Lymphocytes 1.4 10^3/ul (1.0-4.8); ABS Monocytes 0.9 10^3/ul (0-0.8); ABS Neutrophils 4.9 10^3/ul (1.5-7.7); ABS Nucleated RBC 0 10^3/ul; Hematocrit 33 % (42-52); Lymphocyte % 19.3 % (25-47); Mean Corpuscular HGB Conc 33 g/dl (31-36); Mean Corpuscular Hemoglobin 28 pg (27-31); Mean Corpuscular Volume 86 fL (80-94); Mean Platelet Volume 9 um3 (7.4-10.4); Nucleated Red Blood Cells % 0; Platelet Count 209 10^3/ul (150-450); Red Blood Count 3.88 10^6/ul (4.0-5.4); Red Cell Distribution Width 15 % (10.5-15); White Blood Count 7.3 10^3/ul (3.5-10.8)
[2017-12-29 06:31] LABS: EGFR Non-African American 91.1 (>60)
--- NOTE | 2017-12-29 09:00 | PN ---
Subjective Date of Service: 12/29/17 Interval History: Mr. Low states that he is feeling quite well and has no complaint at all. Objective Active Medications: Acetaminophen (Tylenol Tab*) 650 mg PO Q4H PRN Aspirin (Aspirin Ec Low Dose*) 81 mg PO DAILY [facility] Atorvastatin Calcium (Lipitor*) 20 mg PO DAILY [facility] Captopril (Capoten Tab*) 6.25 mg PO TID [facility] Cetirizine HCl (Zyrtec*) 5 mg PO DAILY [facility] Desipramine HCl (Norpramin Tab*) 50 mg PO BEDTIME [facility] Dextrose (D50w Syringe 50 Ml*) 12.5 gm IV PUSH .FOR FS < 60 - SS PRN Duloxetine HCl (Cymbalta Cap*) 60 mg PO BID [facility] Furosemide (Lasix Tab*) 20 mg PO DAILY [facility] Heparin Sodium (Porcine) (Heparin Vial(*)) 0 units IV .PER PROTOCOL [facility] Heparin Sodium/Dextrose (Heparin Drip 25,000 Units(*)) 25,000 units in 500 mls @ 0 mls/hr IVPB PER RATE [facility]; Per Protocol Insulin Human Lispro (Humalog*) 0 units SUBCUT ACHS [facility] Metoprolol Tartrate (Lopressor Tab*) 12.5 mg PO TID [facility] Morphine Sulfate (Morphine Inj (Syringe)*) 2 mg IV Q4H PRN Vital Signs: Temp Pulse Resp BP Pulse Ox 97.7 F 110 16 101/58 94 12/29/17 03:28 12/29/17 03:28 12/29/17 03:28 12/29/17 03:28 12/29/17 03:28 Oxygen Devices in Use Now: Nasal Cannula Appearance: Male lying in bed in NAD Eyes: No Scleral Icterus Ears/Nose/Mouth/Throat: Mucous Membranes Moist Neck: Trachea Midline Respiratory: Symmetrical Chest Expansion and Respiratory Effort, Clear to Auscultation Cardiovascular: NL Sounds; No Murmurs; No JVD, No Edema Abdominal: NL Sounds; No Tenderness; No Distention Lymphatic: No Cervical Adenopathy Extremities: No Edema Skin: No Rash or Ulcers Neurological: Alert and Oriented x 3, NL Muscle Strength and Tone Nutrition: Taking PO's Result Diagrams: 12/29/17 05:45 12/29/17 05:45 Additional Lab and Data: . Microbiology and Other Data: . Assess/Plan/Problems-Billing Assessment: Mr. Low is a 57 yo M with PMH of diabetes and hypertension who was admitted on 12/26/17 with sudden onset SOB found to have new diagnosis of severe cardiomyopathy and EF 20-25%. - Patient Problems (1) Systolic CHF Comment: - Newly diagnosed severe CM with EF 20-25% and systolic congestive heart failure. - Appreciate cardiology consultation. Cardiac cath without significant cornary artery disease. - Continue daily lasix po, captopril, and metoprolol. Monitor BP. - Echo to re-eval LV function today,EF 25-30%. - Life vest ordered. (2) Anemia Comment: - Normocytic, stable this admission, plan to review records from PCP. - Stool guiac, iron studies, vit B11, folate pending. (3) Diabetes Comment: - BG well controlled. - Hold lantus, trulicity and metformin. - Continue lispro SSI coverage with meals. (4) Hyperlipidemia Current Visit: Yes Status: Acute Code(s): E78.5 - HYPERLIPIDEMIA, UNSPECIFIED SNOMED Code(s): 32419415 Comment: - Lipids well controlled. - Continue atorvastatin. (5) Depression Comment: - Continue desipramine and duloxetine. (6) Hypertension Current Visit: Yes Status: Acute Code(s): I10 - ESSENTIAL (PRIMARY) HYPERTENSION SNOMED Code(s): 08070367 Comment: - SBP 100s. - Hold losartan. Continue captopril and metoprolol. (7) DVT prophylaxis Comment: - Heparin sq. (8) Full code status Comment: Status and Disposition: Inpatient. Anticipate discharge to home when medically stable.
[2017-12-29] MEDS: Insulin LISPRO* 1 UNITS UNIT SUBCUT SCH ×4 (09:37→20:48)
[2017-12-29] MEDS: Aspirin EC Low Dose* 81 MG TAB.EC PO SCH (09:38)
[2017-12-29] MEDS: DULoxetine DR CAP* 60 MG CAP.DR PO SCH ×2 (09:38→20:47)
[2017-12-29] MEDS: Atorvastatin* 20 MG TAB PO SCH (09:38)
[2017-12-29] MEDS: Cetirizine* 10 MG TAB PO SCH (09:38)
[2017-12-29] MEDS: Captopril TAB* 12.5 MG PO SCH ×3 (09:38→20:45)
[2017-12-29] MEDS: Furosemide TAB* 20 MG PO SCH (09:39)
[2017-12-29] MEDS: Metoprolol Tartrate TAB* 25 MG PO SCH ×3 (09:39→20:47)
--- NOTE | 2017-12-29 11:54 | CATH ---
cc: Dr. Bismark Pacheco; Dr. Kennedy Ingram* CARDIAC CATHETERIZATION REPORT: DATE OF PROCEDURE: 12/28/17 - ROOM #445 REASON FOR THE PROCEDURE: The patient with significant cardiomyopathy, ejection fraction of 20% to 25%. Assess coronary anatomy to rule the presence of ischemic cardiomyopathy versus nonischemic cardiomyopathy. PROCEDURE: Coronary arteriography. DESCRIPTION OF PROCEDURE: The patient was interviewed and examined on the floor of the hospital, where the risks and benefits were explained. His right radial artery was assessed on the floor of the hospital and found to be approachable for an access. He was brought to the cardiovascular laboratory where a formal time out was performed. He was prepped and draped in a sterile fashion. The right radial artery area was anesthetized with 1% lidocaine. Right radial artery was cannulated and a 6-Moroccan Glidesheath was placed. Following this, a radial artery cocktail including 3 mg of verapamil and 300 mcg of nitroglycerin was given. Of note, heparin was not given as the patient was already on a heparin drip at that time. Coronary arteriography was performed utilizing a 5-[place]oc[place] TIG4 curve coronary catheter. Following this, the catheter and sheath were removed and hemostasis was obtained with a Vasc Band. The total contrast used was 70 cc of Omnipaque dye. The radiation exposure included 4 minutes of fluoro time. The air kerma radiation was 945 milligray. The DAP radiation was 4911 microgray per meter squared. RESULTS: CORONARY ARTERIOGRAPHY: A. Left coronary artery: 1. Left main widely patent. 2. Left anterior descending artery - there was very mild luminal irregularity seen in the left anterior descending artery in its mid and distal portion, which appear to be 25% to 30% in the mid portion and 35% to 40% in the distal portion. The artery traversed to the apical region on to the distal inferior wall. The diagonal branches had no significant disease and then they were somewhat small caliber in nature. 3. Circumflex artery - a dominant vessel with a trifurcation marginal branch, which showed no evidence of obstruction. Past this point in the circumflex artery, it supplied several obtuse marginal branches and ending in a small left-sided posterior descending artery. Of note, the posterior descending artery extended only to the most proximal portion of the inferior wall as the LAD wrapped around the apex on to the distal inferior wall. There were no significant narrowings noted throughout the circumflex system. B. Right coronary artery - a nondominant vessel supplying flow to the RV surface. There was no significant obstruction seen throughout the course of the vessel. Of note, the distal most portion of these vessels were small in caliber in general. OVERALL ASSESSMENT: No significant stenotic coronary artery disease seen with only mild disease in the [id number] LAD of 30%, and 35% to 40% respectively. Given these findings, the severe left ventricular global systolic dysfunction is more likely on the basis of a nonischemic cardiomyopathy. Medical management for LV dysfunction should be pursued with reassessment of LV function prior to discharge to the side if there has been recovery or whether or not a LifeVest needs to be placed. [id number]/[facility] #: [id number] MTDD
--- NOTE | 2017-12-29 14:44 | ECHO ---
Patient: THEE LOWERY [facility] Rec#: [id number] : 1960 Date: 12/29/2017 Age: 57y Height: 72 cm / 28.3 in Weight: 113.4 kg / 249.9 lbs Sex: M BSA: 1.19 Room#: [facility] Admit Date#: 12/26/2017 Type: Inpatient Referring: Diana Coronado NP Reading: Luis Espino MD Orthopedic Nurse Practitioner: Marcy Botello RDCS CC: Bismark Pacheco MD Transthoracic Echocardiogram Indication: Follow up CHF BP: 101/58 HR: 112 Rhythm: A-Fib Findings History: DM, HTN, SVT, recent cardiac cath. This is a LIMITED study to reassess LV function and EF. Technical Comments: The study quality is good. Completed at 0940. Left Ventricle: The left ventricular chamber size is normal. There is global hypokinesis of the left ventricle with minor regional variation. There is severely decreased left ventricular systolic function. The estimated ejection fraction is 25-30%. Right Ventricle: The right ventricular cavity size is normal. The right ventricular global systolic function is mildly reduced. Summary: There are no significant changes when compared to the previous study done on 12/26/2017 Conclusions Limited echo for f/u LV EF. The left ventricular chamber size is normal. There is global hypokinesis of the left ventricle with minor regional variation. There is severely decreased left ventricular systolic function. The estimated ejection fraction is 25-30%.
[2017-12-29] MEDS: Desipramine TAB* 50 MG PO SCH (20:49)
[2017-12-29] MEDS: Heparin VIAL(*) 5000 UNITS/ML VIAL (FIVE THOUSAND) SUBCUT SCH (20:51)
[2017-12-30] MEDS: Heparin VIAL(*) 5000 UNITS/ML VIAL (FIVE THOUSAND) SUBCUT SCH ×2 (04:38→13:53)
[2017-12-30 06:21] LABS: ABS Basophils 0 10^3/ul (0-0.2); ABS Eosinophils 0.2 10^3/ul (0-0.6); ABS Lymphocytes 1.6 10^3/ul (1.0-4.8); ABS Monocytes 0.7 10^3/ul (0-0.8); ABS Nucleated RBC 0 10^3/ul; Eosinophil % 2.6 % (0-6); Hematocrit 36 % (42-52); Hemoglobin 11.6 g/dl (14.0-18.0); Lymphocyte % 24.9 % (25-47); Mean Corpuscular HGB Conc 33 g/dl (31-36); Mean Corpuscular Hemoglobin 28 pg (27-31); Mean Corpuscular Volume 86 fL (80-94); Mean Platelet Volume 9 um3 (7.4-10.4); Nucleated Red Blood Cells % 0.1; Platelet Count 241 10^3/ul (150-450); Red Blood Count 4.14 10^6/ul (4.0-5.4); Red Cell Distribution Width 14 % (10.5-15); White Blood Count 6.5 10^3/ul (3.5-10.8)
[2017-12-30 06:36] LABS: EGFR Non-African American 93.6 (>60)
[2017-12-30] MEDS: Captopril TAB* 12.5 MG PO SCH ×2 (08:17→13:19)
[2017-12-30] MEDS: Atorvastatin* 20 MG TAB PO SCH (08:18)
[2017-12-30] MEDS: Aspirin EC Low Dose* 81 MG TAB.EC PO SCH (08:18)
[2017-12-30] MEDS: Metoprolol Tartrate TAB* 25 MG PO SCH (08:18)
[2017-12-30] MEDS: DULoxetine DR CAP* 60 MG CAP.DR PO SCH (08:18)
[2017-12-30] MEDS: Cetirizine* 10 MG TAB PO SCH (08:18)
[2017-12-30] MEDS: Furosemide TAB* 20 MG PO SCH (08:18)
[2017-12-30] MEDS: Insulin LISPRO* 1 UNITS UNIT SUBCUT SCH ×2 (08:29→12:41)
--- NOTE | 2017-12-30 09:24 | PN ---
Subjective Date of Service: 12/30/17 Interval History: Mr. Low denies any complaint. He specifically denies chest pain, SOB, nausea, or abdominal pain. Objective Active Medications: Acetaminophen (Tylenol Tab*) 650 mg PO Q4H PRN Aspirin (Aspirin Ec Low Dose*) 81 mg PO DAILY [facility] Atorvastatin Calcium (Lipitor*) 20 mg PO DAILY [facility] Captopril (Capoten Tab*) 6.25 mg PO TID [facility] Cetirizine HCl (Zyrtec*) 5 mg PO DAILY [facility] Desipramine HCl (Norpramin Tab*) 50 mg PO BEDTIME [facility] Dextrose (D50w Syringe 50 Ml*) 12.5 gm IV PUSH .FOR FS < 60 - SS PRN Duloxetine HCl (Cymbalta Cap*) 60 mg PO BID [facility] Furosemide (Lasix Tab*) 20 mg PO DAILY [facility] Heparin Sodium (Porcine) (Heparin Vial(*)) 5,000 units SUBCUT Q8HR [facility] Insulin Human Lispro (Humalog*) 0 units SUBCUT ACHS [facility] Metoprolol Tartrate (Lopressor Tab*) 25 mg PO BID [facility] Morphine Sulfate (Morphine Inj (Syringe)*) 2 mg IV Q4H PRN Vital Signs: Temp Pulse Resp BP Pulse Ox 98.3 F 105 20 122/77 94 12/30/17 08:13 12/30/17 08:13 12/30/17 08:13 12/30/17 08:13 12/30/17 08:13 Oxygen Devices in Use Now: None Appearance: Male lying in bed in NAD Eyes: No Scleral Icterus Ears/Nose/Mouth/Throat: Mucous Membranes Moist Neck: Trachea Midline Respiratory: Symmetrical Chest Expansion and Respiratory Effort, Clear to Auscultation, Clear to Percussion Cardiovascular: NL Sounds; No Murmurs; No JVD, No Edema Abdominal: NL Sounds; No Tenderness; No Distention Lymphatic: No Cervical Adenopathy Extremities: No Edema Skin: No Rash or Ulcers Neurological: Alert and Oriented x 3, NL Muscle Strength and Tone Nutrition: Taking PO's Result Diagrams: 12/30/17 06:00 12/30/17 06:00 Additional Lab and Data: . Microbiology and Other Data: . Assess/Plan/Problems-Billing Assessment: Mr. Low is a 57 yo M with PMH of diabetes and hypertension who was admitted on 12/26/17 with sudden onset SOB found to have new diagnosis of severe cardiomyopathy and EF 20-25%. - Patient Problems (1) Systolic CHF Comment: - Newly diagnosed severe CM with EF 20-25% and systolic congestive heart failure. - Appreciate cardiology consultation. Cardiac cath without significant cornary artery disease. - Switch from lasix to spironolactone. Continue captopril and metoprolol. - Echo to re-eval LV function 12/29, EF 25-30%. - Life vest received. (2) Anemia Comment: - Normocytic, stable this admission, plan to review records from PCP. - Stool guiac negative, iron deficiency noted. Plan to start iron supplementation, recommend follow up PCP. (3) Diabetes Comment: - BG well controlled here but HgbA1c was 13.3. - Hold lantus, trulicity and metformin. - Continue lispro SSI coverage with meals. - Recommended follow up at [facility]. (4) Hyperlipidemia Current Visit: Yes Status: Acute Code(s): E78.5 - HYPERLIPIDEMIA, UNSPECIFIED SNOMED Code(s): 66606592 Comment: - Lipids well controlled. - Continue atorvastatin. (5) Depression Comment: - Continue desipramine and duloxetine. (6) Hypertension Current Visit: Yes Status: Acute Code(s): I10 - ESSENTIAL (PRIMARY) HYPERTENSION SNOMED Code(s): 60997690 Comment: - SBP 100s. - Continue captopril, metoprolol, and spironolactone. (7) DVT prophylaxis Comment: - Heparin sq. (8) Full code status Comment: Status and Disposition: Inpatient. Discharge to home.
[2017-12-30] MEDS ORDERED: Metoprolol Tartrate TAB* 25 MG PO ONE (09:45)
--- NOTE | 2017-12-30 12:09 | PN ---
Subjective Date of Service: 12/30/17 - CC: SOB Interval History: The patient's breathing is back to normal, pt has felt well since diuresis earlier in the week. No chest pain. Medications Active Medications: Acetaminophen (Tylenol Tab*) 650 mg PO Q4H PRN PRN Reason: FEVER Last Admin: 12/29/17 22:45 Dose: 650 mg Aspirin (Aspirin Ec Low Dose*) 81 mg PO DAILY [facility] Last Admin: 12/30/17 08:18 Dose: 81 mg Atorvastatin Calcium (Lipitor*) 20 mg PO DAILY [facility] Last Admin: 12/30/17 08:18 Dose: 20 mg Captopril (Capoten Tab*) 6.25 mg PO TID [facility] Last Admin: 12/30/17 08:17 Dose: 6.25 mg Cetirizine HCl (Zyrtec*) 5 mg PO DAILY [facility] PRN Reason: Protocol Last Admin: 12/30/17 08:18 Dose: 5 mg Desipramine HCl (Norpramin Tab*) 50 mg PO BEDTIME [facility] Last Admin: 12/29/17 20:49 Dose: 50 mg Dextrose (D50w Syringe 50 Ml*) 12.5 gm IV PUSH .FOR FS < 60 - SS PRN PRN Reason: FS < 60 Duloxetine HCl (Cymbalta Cap*) 60 mg PO BID [facility] Last Admin: 12/30/17 08:18 Dose: 60 mg Furosemide (Lasix Tab*) 20 mg PO DAILY [facility] Last Admin: 12/30/17 08:18 Dose: 20 mg Heparin Sodium (Porcine) (Heparin Vial(*)) 5,000 units SUBCUT Q8HR [facility] Last Admin: 12/30/17 04:38 Dose: 5,000 units Insulin Human Lispro (Humalog*) 0 units SUBCUT ACHS [facility] PRN Reason: Protocol Last Admin: 12/30/17 08:29 Dose: 3 units Metoprolol Tartrate (Lopressor Tab*) 25 mg PO BID [facility] Last Admin: 12/30/17 08:18 Dose: 25 mg Morphine Sulfate (Morphine Inj (Syringe)*) 2 mg IV Q4H PRN PRN Reason: PAIN - MILD Last Admin: 12/27/17 02:16 Dose: 2 mg Objective Vital Signs: Temp Pulse Resp BP Pulse Ox 98.3 F 105 20 122/77 94 12/30/17 08:13 12/30/17 08:13 12/30/17 08:13 12/30/17 08:13 12/30/17 08:13 Oxygen Devices in Use Now: None Appearance: Obese male, lying flat, no respiratory distress. Eyes: No Scleral Icterus, PERRLA Ears/Nose/Mouth/Throat: Clear Oropharnyx, Mucous Membranes Moist Neck: NL Appearance and Movements; NL JVP, Trachea Midline, No Thyroid Enlargement, Masses Respiratory: Symmetrical Chest Expansion and Respiratory Effort - distant breath sounds, no wheezing or rales. Cardiovascular: RRR - summation kallie heard. Abdominal: No Hepatosplenomegaly - obese, soft. Extremities: No Edema, No Clubbing, Cyanosis Skin: No Rash or Ulcers Neurological: Alert and Oriented x 3 Lines/Tubes/Other Access: Clean, Dry and Intact Peripheral IV Laboratory Results: 12/30/17 06:00 12/30/17 06:00 APTT 29.3 seconds (26.0-36.3) 12/28/17 15:45 Total Bilirubin 0.40 mg/dL (0.2-1.0) 12/26/17 07:46 AST 25 U/L (13-39) 12/26/17 07:46 ALT 26 U/L (7-52) 12/26/17 07:46 Alkaline Phosphatase 52 U/L (34-104) 12/26/17 07:46 CK-MB (CK-2) 4.9 ng/mL (0.6-6.3) 12/26/17 07:46 B-Natriuretic Peptide 529 pg/mL (-100) H 12/28/17 05:35 Total Protein 7.4 g/dL (6.4-8.9) 12/26/17 07:46 Albumin 4.3 g/dL (3.2-5.2) 12/26/17 07:46 Globulin 3.1 g/dL (2-4) 12/26/17 07:46 Albumin/Globulin Ratio 1.4 (1-3) 12/26/17 07:46 Triglycerides 61 mg/dL 12/27/17 04:12 Cholesterol 98 mg/dL 12/27/17 04:12 LDL Cholesterol 36 mg/dL 12/27/17 04:12 HDL Cholesterol 49.6 mg/dL 12/27/17 04:12 TSH 1.22 mcIU/mL (0.34-5.60) 12/26/17 07:46 12/26/17 12/26/17 12/27/17 14:40 21:40 02:23 Troponin I 2.34 H* 0.10 H* 0.11 H* Justice April 2017: A1c 13.3 (admitted hypotensive, felt to be due dietary non compliance, polyuria due to elevated glucose). Diagnostic Imaging: ECHO Justice 04/23/17: EF 55-60%, mild BRET, RV diameter upper normal, normal systolic function, mild to moderate TR, PApr 40 mmHg. ECHO 12/26/17 EF 25%, LVH. EKG Data: Monitor: NSR. Assessment/Plan 57 yo male awoke 6 AM yesterday with acute onset SOB/CHF. Found to have a severe CM, sinus tachycardia and has responded well to diuresis clinically. Cardiac catheterization showed normal coronary arteries. CM is new c/w last April based on prior echo report. CM: Large differential including: DM/HTN burned out. SVT induced (non by hx but could be having at night as hx EDIN). Viral/idiopathic. Option to check EBV, coxackie titres as viral symptoms late November and mild elevation in troponins, this could be myocarditis. I added ESR and CRP to labs. Continue with medical management: continue metoprolol Continue ACEI Consider daily aldactone 12.5 mg/day, follow K+, BUN and Creat carefully as out patient Daily weight and avoid excessive salt (discussed in depth with the patient and his ) Life vest on d/c today. Would leave off Metformin in case this contributed to CHF/CM. Consider newer CM agents to replace if felt to be appropriate by primary MD and Dr. Avina, some of these benefit CHF. Recommend follow up with Dr. Ingram in 1-2 weeks.
[2017-12-30 13:51] VITALS: BP 102/70
[2017-12-31] MEDS ORDERED: Ferrous Sulfate TAB* 325 MG PO SCH (09:00)
[2017-12-31] MEDS ORDERED: Spironolactone TAB* 25 MG PO SCH (09:00)
--- NOTE | 2017-12-31 11:38 | DS ---
CC: Dr. Pacheco; Dr. Avina * HOSPITAL MEDICINE DISCHARGE SUMMARY: DATE OF ADMISSION: 12/26/17 DATE OF DISCHARGE: 12/30/17 PRIMARY CARE PHYSICIAN: Dr. Pacheco. LEAD CASTER: Dr. Avina. ATTENDING PHYSICIAN: Dr. Reid Ariza * (dictation provided by Diana Coronado NP). PRIMARY DIAGNOSES: 1. New diagnosis of severe cardiomyopathy, ejection fraction 25% to 30%. 2. Iron deficiency anemia. SECONDARY DIAGNOSES: 1. Type 2 diabetes, insulin dependent. 2. Depression. 3. Hyperlipidemia. 4. Hypertension. MEDICATIONS AT THE TIME OF DISCHARGE: 1. [place]-3 fatty acid 1000 mg p.o. daily. 2. Multivitamin with mineral 1 tab daily. 3. Cholecalciferol 1000 units p.o. daily. 4. Aspirin 81 mg p.o. daily. 5. Trulicity 1.5 mg subcutaneously weekly. 6. Fexofenadine 60 mg p.o. b.i.d. 7. Desipramine 150 mg p.o. daily. 8. Duloxetine 60 mg p.o. b.i.d. 9. Lispro insulin as needed with meals. 10. Atorvastatin 20 mg p.o. daily. 11. Metformin 1000 mg p.o. b.i.d. 12. Spironolactone 12.5 mg p.o. daily (new medication). 13. Metoprolol tartrate 25 mg p.o. b.i.d. (new medication). 14. Lantus insulin 10 units subcutaneously q.a.m. 15. Ferrous sulfate 325 mg p.o. daily (new medication). 16. Captopril 6.25 mg p.o. t.i.d. (new medication). HOSPITAL COURSE: Mr. Low is a 57-year-old male with a past medical history of diabetes, who presented to the hospital on 12/26/17 with complaint of respiratory distress. Please see the dictated H and P from Dr. Jones for complete details. In brief, the patient stated he developed acute onset of chest discomfort and feeling of fluid in his chest that he was not able to clear and presented immediately to the emergency room. In the emergency room, it was felt that he was in flash pulmonary edema. He was given Lasix and started on BiPAP. Chest x-ray showed the following: "Mixed interstitial and airspace disease predominantly in the mid and lower lungs bilaterally. Differential include infectious pneumonitis and consolidation versus pulmonary interstitial and alveolar edema." The patient had chest/thorax CTA showed the following: "Limited study. Within the limitation of the study, there were no findings to suggest aortic dissection or aneurysmal dilatation. There is no periaortic hematoma." He had a transthoracic echocardiogram, which showed that he had a new depressed ejection fraction of 20% to 25%. There is no prior available for comparison here at our hospital, but since then records have been obtained that showed his ejection fraction was normal last year. Mr. Low was admitted to the hospital. He was seen in consultation by Cardiology. He had a cardiac catheterization on 12/28/17 that showed no significant stenotic coronary artery disease and is felt that he had nonischemic cardiomyopathy. He had a repeat follow up echocardiogram on that showed his ejection fraction was estimated to be 25% to 30%. Mr. Low has been closely monitored for medication adjustments to optimize cardiac function while inpatient. He is currently being discharged to home on spironolactone, metoprolol, and captopril. He will also be on aspirin and atorvastatin. For his depressed ejection fraction and risk for sudden cardiac , he has also had a LifeVest ordered and has been instructed to wear that continuously. Mr. Low's blood sugar has been well controlled in this hospitalization without any Lantus, Trulicity, or metformin. He states that at home he does not ingest large amount of carbohydrates; however, at home he was previously taking 50 units of Lantus in the morning as well as Trulicity and metformin. I have strongly encouraged him to avoid carbohydrates. At this point I recommended that he go on 10 units of Lantus in the morning, but that he should check his blood sugar twice daily and provide these readings to Dr. Avina. I have also recommended that he call Dr. Avina's office if his blood sugars over 200 for adjustment in his Lantus dosing. Mr. Low has been noted to be mildly anemic during the hospitalization and his hemoglobin has been 12.6 to 11.6 and is 11.6 today on the day of discharge. I have checked iron studies, vitamin B12, and folate and note that he is iron deficient. I have checked his stool guaiac, but it is negative. The patient states he has had a history of colonoscopy and he is up-to-date with that. He will be started on iron supplementation, but should follow up closely with his primary care physician regarding this iron deficiency. Dr. Beach questioned whether perhaps the patient had a viral syndrome and that was driving his new cardiomyopathy. He has had no leukocytosis, no fever while here. However, I make note to the fact that the patient had a CRP that was drawn on the day of discharge per Dr. Beach's recommendations and it was elevated to 91.95. The ESR is pending. I highly recommend that the patient follow up closely with Dr. Pacheco, Dr. Avina and his spd manager regarding further workup of subtle inflammatory or viral process that could be driving his symptoms. DISPOSITION: Home. DIET: Consistent carbohydrate, low fat, low salt. ACTIVITY: As tolerated. FOLLOWUP PLANS: 1. Please follow up with Dr. Ingram in 1 to 2 weeks. 2. Please follow up with Dr. Avina in 1 to 2 weeks. 3. Please follow up with Dr. Pacheco in 4 to 7 days. TIME SPENT: Approximately 75 minutes was spent on the discharge of this patient , more than half of the time was spent with the patient at the bedside reviewing the events leading up to this hospitalization, performing the physical examination and reviewing my plan of care. DIANA CORONADO NP [id number]/[facility] #: [id number] MARYANNE
== END 2017-12-30 14:25 | disposition home or self-care (01) | DRG 286 ==
LOC: ED 07:35 → ICU 11:03 → MEDTELE 12-27 14:26
PROVIDERS: ADMIT Internal Medicine Critical Care Medicine; ATTEND Internal Medicine Cardiovascular Disease
PROC: 5A09357 Assistance with Respiratory Ventilation, Less than 24 Consecutive Hours, Continuous Positive Airway Pressure (ICD-10-PCS; 2017-12-26)
PROC: B2111ZZ Fluoroscopy of Multiple Coronary Arteries using Low Osmolar Contrast (ICD-10-PCS; principal; 2017-12-28 09:00)
DX: I42.8 Other cardiomyopathies (principal); J81.0 Acute pulmonary edema; J96.01 Acute respiratory failure with hypoxia; I50.20 Unspecified systolic (congestive) heart failure; I11.0 Hypertensive heart disease with heart failure; E11.9 Type 2 diabetes mellitus without complications; D50.9 Iron deficiency anemia, unspecified; E78.5 Hyperlipidemia, unspecified; F32.9 Major depressive disorder, single episode, unspecified; I77.819 Aortic ectasia, unspecified site; G47.33 Obstructive sleep apnea (adult) (pediatric); Z79.82 Long term (current) use of aspirin; Z91.013 Allergy to seafood; Z72.89 Other problems related to lifestyle; Z83.3 Family history of diabetes mellitus; Z82.49 Family history of ischemic heart disease and other diseases of the circulatory system; Z84.1 Family history of disorders of kidney and ureter; Z79.4 Long term (current) use of insulin
CPT/HCPCS: 36415; 71045; 71275; 80048; 80053; 80061; 81003; 82272; 82550; 82553; 82565; 82607; 82728; 82746; 83540; 83550; 83605; 83735; 83874; 83880; 84443; 84484; 84520; 85025; 85652; 85730; 86140; 86658; 86664; 86665; 87040; 87502; 87641; 90686; 90732; 93005; 93306; 93308; 93454; 94660; 99284; A9270-GY; C8929; J1644; J1940; J2250; J2270; J3010; Q9967

== ENCOUNTER 2018-04-29 11:39 | Emergency (ER) | payer OTHER ==
--- OUTSIDE RECORDS SUMMARY | 2018-04-29 11:46 | XMS REPORT ---
:1960 External Reference #:[id number] Author Organization [facility] Address [address] [address] Phone [phone] Care Team Providers Name Role Phone Bismark Pacheco MD Primary Care Physician Unavailable Payers Type Date Identification Numbers Payment Provider Subscriber Commercial Policy Number: [id number] [facility] Paty Judd Jnonathan PayID: [id number] [address] [place] [address] Commercial Expires: 2015 Policy Number: [id number] [employer] Paty Judd Jonnathan Group Number: [id number] [address] PayID: [id number] [place] [address] Medigap Part B Expires: 2013 Policy Number: Healthсветлана Low [id number] Group Number: [id number] [address] PayID: [id number] [place] [address] Problems Description No Information Family History Date Family Member(s) Problem(s) Comments Mother Diabetes Social History Type Date Description Comments Marital Status Lives With 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 then decrease to 1 tab a day Eliquis 02/14 Active Tablets 5mg 60tab 1 by mouth I42.9 Kennedy s twice a day Sin Ingram M.D. Enalapril 01/10 Active Tablets 5mg 90tab 1/2 tablet by I42.9 Kennedy Male s mouth every D. Juan Jose, ebonie Mayers Coreg 01/10 Active Tablets 3.125mg 60tab 1 by mouth I42.9 Kennedy s twice a day Sin Ingram M.D. Lasix 01/03 Active Tablets 20mg 30tab 1 by mouth Kennedy s every day as Sin Ingram, needed for M.D. weight gain. Lantus Solostar Active Sopn 100Unit/M 20 units sq Breiman, /0000 L daily MD Bismark Desipramine HCL Active Tablets 50mg 1 tab po tid Breiman, /0000 MD Bismark Metformin HCL Active Tablets 1000mg 1 tab po bid Breiman, /0000 MD Bismark Novolog Flexpen Active Sopn 100Unit/M sliding scale Breiman, /0000 L MD Bismark Duloxetine HCL Active Caps DR 60mg 1 tab po bid Breiman, /0000 Part MD Bismark Aspirin Ec Active Tablets 81mg 90tab 1 tablet Unknown Lo-Dose / s daily. Multivitamins Active Capsules 30cap 1 by mouth Unknown /0000 s every day Fish Oil Active Capsules 1000mg 60cap 1 cap po daily Unknown Burp-Less / s Ferrous Sulfate Active Tablets 325(65Fe) take 1 tablet Unknown /0000 mg by mouth once daily( new medication ) Spironolactone Active Tablets 25mg take 1/2 Unknown 0000 tablet by mouth once daily ( New medication ) Atorvastatin Active Tablets 20mg take 1 tablet Unknown Calcium /0000 by mouth every evening Trulicity Active Solution 1.5mg/0.5 inject Unknown Pen-Injec ML subcutaneously t weekly Gisele Allergy Active Tablets 180mg 1 by mouth Unknown /0000 every day Vitamin D3 Active Capsules 1000Unit 1 by mouth Unknown /0000 every day Metoprolol Active Tablets 25mg 1 by mouth Unknown Tartrate /0000 twice a day [place] 08/07 Hx Tablets 5-325mg 60tab 1-2 tab by s mouth every Young, - 4-6 hours as M.D. 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 05/13 Urea Hx Cream 40% [place], Angel, - DPM 05/13 Vitamin D Hx Tablets 1000Unit 30tab by mouth Unknown /0000 s everyday (not - sure if 01/09 taking) Captopril Hx Tablets 12.5mg take 1/2 I42.9 Unknown /0000 tablet by - mouth three 01/10 times a day ( /2017 new medication ) Metoprolol Hx Tablets 25mg take 1 tablet I42.9 Unknown Tartrate /0000 by mouth twice - a day ( New 01/10 Medication ) Vital Signs Date Vital Result Comment 03/07/2018 Weight 289.00 lb with shoe Heart Rate 78 /min BP Systolic Sitting 110 mmHg Lue lg cuff BP Diastolic Sitting 80 mmHg Lue lg cuff BP Systolic Standing 100 mmHg Lue lg cuff BP Diastolic Standing 74 mmHg Lue lg cuff Respiratory Rate 16 /min Ejection Fraction 25-30% date 12/29/17 ECHO 02/14/2018 Weight 277.00 lb Heart Rate 58 /min BP Systolic Sitting 96 mmHg lue reg cuff BP Diastolic Sitting 66 mmHg lue reg cuff BP Systolic Standing 88 mmHg lue reg cuff BP Diastolic Standing 60 mmHg lue reg cuff Respiratory Rate 17 /min Ejection Fraction 25-30% 12/29/2017 echo 02/09/2018 Weight 273.25 lb without shoes Heart Rate 104 /min BP Systolic Sitting 102 mmHg regular cuff BP Diastolic Sitting 60 mmHg regular cuff BP Systolic Standing 96 mmHg BP Diastolic Standing 58 mmHg Respiratory Rate 20 /min 02/07/2018 Height 75 inches 6'3" Weight 278.50 lb ,with lifevest no shoes Heart Rate 106 /min apical BP Systolic 80 mmHg Lue reg cuff BP Diastolic 68 mmHg Lue reg cuff BP Systolic Sitting 72 mmHg Rue reg cuff BP Diastolic Sitting 60 mmHg Rue reg cuff Respiratory Rate 16 /min BMI (Body Mass Index) 34.8 kg/m2 Ejection Fraction 25-30% 12/26/17 01/10/2018 Height 75 inches 6'3" Weight 288.00 lb with shoes Heart Rate 66 /min BP Systolic Sitting 110 mmHg Rue lrg cuff BP Diastolic Sitting 78 mmHg Rue lrg cuff BP Systolic Standing 110 mmHg Rue lrg cuff BP Diastolic Standing 82 mmHg Rue lrg cuff Respiratory Rate 17 /min BMI (Body Mass Index) 36.0 kg/m2 Ejection Fraction 25-30% 12/29/2017-echo 10/16/2014 Height 75 inches 6'3" Heart Rate 93 /min BP Systolic 91 mmHg BP Diastolic 62 mmHg 09/19/2014 Height 75 inches 6'3" Heart Rate 85 /min BP Systolic 144 mmHg BP Diastolic 97 mmHg 08/07/2014 Height 75 inches 6'3" Weight 305.00 lb Heart Rate 91 /min BP Systolic 103 mmHg BP Diastolic 69 mmHg BMI (Body Mass Index) 38.1 kg/m2 06/12/2014 Height 75 inches 6'3" Weight 304.00 lb Heart Rate 84 /min BP Systolic Sitting 104 mmHg BP Diastolic Sitting 74 mmHg Respiratory Rate 16 /min BMI (Body Mass Index) 38.0 kg/m2 Results Test Date Test Result H/L Range Note Basic Metabolic Panel 02/14/2018 Sodium 141 mmol/L 139-145 Potassium 4.4 mmol/L 3.5-5.0 Chloride 104 mmol/L 101-111 Co2 Carbon Dioxide 30 mmol/L 22-32 Anion Gap 7 mmol/L 2-11 Glucose 136 mg/dL High 70-100 Blood Urea Nitrogen 12 mg/dL 6-24 Creatinine 1.03 mg/dL 0.67-1.17 BUN/Creatinine Ratio 11.7 8-20 Calcium 9.6 mg/dL 8.6-10.3 Egfr Non- 75.0 >60 Egfr 96.4 >60 1 Laboratory test finding 12/26/2017 Troponin I 2.34 ng/mL High <0.04 2 Rapid Influenza A & B 12/26/2017 Influenza A Molecular NEGATIVE Negative 3 Molecular Influenza B Molecular NEGATIVE Negative 1 Because ethnic data is not always readily available, this report includes an eGFR for both -Americans and non- Americans. The National Kidney Disease Education Program (NKDEP) does not endorse the use of the MDRD equation for patients that are not between the ages of 18 and 70, are , have extremes of body size, muscle mass, or nutritional status, or are non- or non-. According to the National Kidney Foundation, irrespective of diagnosis, the stage of the disease is based on the level of kidney function: Stage Description GFR(mL/min/1.73 m(2)) 1 Kidney damage with normal or decreased GFR 90 2 Kidney damage with mild decrease in GFR 60-89 3 Moderate decrease in GFR 30-59 4 Severe decrease in GFR 15-29 5 Kidney failure <15 (or dialysis) 2 Result TnIDx:2.34 Called to NATHANIEL at: 16:25:01 by:[id number] Read back by:NATHANIEL 3 Seal Mixer: [id number] Procedures Date CPT Code Description Status 03/02/2018 13270 ECHO Transthoracic, Real-Time 2D With Doppler And Color Completed Flow 03/02/2018 73178 ECHO Transthoracic, Real-Time 2D With Doppler And Color Completed Flow 02/16/2018 93962 Color Flow Doppler/Interp & Reprt Completed 02/16/2018 46461 Pulse Wave/Continuous-Interp.RPT Completed 02/16/2018 16399 Echocardiography, Transesophageal, Real Time W/Image 2D Completed W/W/O M-M 02/16/2018 30239 Cardioversion Completed 02/14/2018 35046 EKG Tracing & Interpretation Completed 02/07/2018 88401 EKG Tracing & Interpretation Completed 01/10/2018 27706 EKG Tracing & Interpretation Completed 12/29/2017 44400 Echocardiogram, Limited Study Completed 12/28/2017 45110 Cath PLMT&NJX L Ventriculog Img S&I Completed 12/27/2017 90067 EKG, Interpretation Only Completed 12/26/2017 88150 ECHO Transthorasic Realtime 2D W Doppler & Color Completed Flow Hosp 01/28/2016 44245 Stress Test Completed 09/02/2014 00914 Neuroplasty &/Or Transposition; Ulnar Nerve AT Completed Elbow 06/12/2014 81362 Nerve Conduction 05-06 Studies Completed 06/12/2014 26526 Needle Electromyography Complete, Five Or More Muscles Completed Studied 05/27/2008 71401 ECHO/Stress Completed 05/27/2008 61560 Stress Test Completed 05/27/2008 30834 Stress Test Completed Encounters Type Date Location Provider CPT E/M Dx Office Visit 03/07/2018 [facility] Kennedy Ingram, 69882 I42.9 11:45a [facility] M.D. I48.4 I50.9 Office Visit 02/14/2018 9:45a [facility] Kennedy Ingram, 76846 I42.9 [facility] M.D. I48.4 I50.9 Office Visit 02/09/2018 10:00a [facility] [place] [address] I42.9 [facility] Office Visit 01/10/2018 8:30a [facility] Kennedy Ingram, 38568 I42.9 [facility] M.D. R00.0 I42.0 I50.9 Office Visit 12/30/2017 1:47p [facility],catarina Coronado N.PLucie 15701 J81.0 Hospitalists J96.01 I42.0 I21.4 Office Visit 12/30/2017 2:41p [facility] [place] M.D. 22218 I42.9 [facility] R00.0 Office Visit 12/29/2017 1:46p [facility],catarina Coronado, N.P. 92935 J81.0 Hospitalists J96.01 I42.0 I21.4 Office Visit 12/29/2017 3:26p [facility] Oc Mendez M.D., [address] Technologist [facility] [place].9 Office Visit 12/28/2017 1:44p [facility],catarina Coronado N.P. 65973 J81.0 Hospitalists J96.01 I42.0 I21.4 Office Visit 12/27/2017 10:57[place] [address] J96.01 J81.0 I42.0 I21.4 Office Visit 12/27/2017 12:41p [facility] [place] M.D. [address] Technologist I50.9 R00.0 Office Visit 12/26/2017 10:55[place] [address] J81.0 J96.01 I42.0 E10.9 Office Visit 12/26/2017 2:10p [facility] Kennedy Ingram, 09745 J81.0 [facility] Riana I42.9 R06.02 Office Visit 08/07/2014 3:15p [facility], 12791 354.2 C.MGeronimo Mayers Plan of Care Future Appointment(s):04/25/2018 10:45 am - Kennedy Ingram M.D. at [facility]04/11/2018 11:00 am - [facility] ECHO Schedule at [facility]03/07/2018 - Kennedy Ingram M.D.I42.9 Cardiomyopathy, xwezwnpovazP55.4 Atypical atrial sxrcoghS31.9 Heart failure, unspecifiedNew Orders: EchocardiogramReferral:Boubacar Barboza MD, Internal MedicineFollow up:6 weeks
[2018-04-29 11:53] VITALS: BP 91/63
--- NOTE | 2018-04-29 13:59 | UC ---
Liyah Dias Elizabeth, scribed for Snehal Hutson DO on 04/29/18 at 1235 . Lower Extremity/Ankle HPI - HPI Summary HPI Summary: This patient is a 58 year old M presenting to [facility] with a chief complaint of redness and swelling in his right great toe since last night. The patient reports that he noticed a blister on his right great toe last night and that when he was getting undressed it burst, leaking fluid. The patient reports that his right toes are usually a little bit swollen, but that his great toe became more swollen in the last day. The patient rates the pain 0/10 in severity. Symptoms aggravated by nothing. Symptoms alleviated by nothing. That patient also reports tenderness in his left knee from a fall on 04/13/18, rating the pain 2/10. The patient also notes that his knee is typically swollen in the area but notes a large scab. Patient denies cough, headache, rash, nausea, or vomiting. The patient has hx of diabetes and has very little sensation in his feet. He also has a hx of CHF, SVT, and pulmonary edema. - History of Current Complaint Chief Complaint: UCLowerExtremity Stated Complaint: RIGHT BIG TOE INJURY Time Seen by Provider: 04/29/18 12:02 Hx Obtained From: Patient Onset/Duration: Gradual Onset, Lasting Hours, Still Present Severity Initially: Mild Severity Currently: Mild Pain Intensity: 0 Pain Scale Used: 0-10 Numeric Aggravating Factor(s): Nothing Alleviating Factor(s): Nothing Able to Bear Weight: Yes - Allergies/Home Medications Allergies/Adverse Reactions: Allergies Allergy/AdvReac Type Severity Reaction Status Date / Time shellfish derived Allergy Numbness Verified 04/29/18 11:53 And Tingling PMH/Surg Hx/FS Hx/Imm Hx Endocrine History: Diabetes Cardiovascular History: Congestive Heart Failure Other Cardiovascular History: SVT Other Respiratory History: Pulmonary edema - Surgical History Surgical History: Yes Surgery Procedure, Year, and Place: TONSILLECTOMY 1971. I+D RIGHT FOOT SEVERAL YRS AGO - Family History Known Family History: Positive: Hypertension, Diabetes Family History: [place] - Social History Alcohol Use: Rare Substance Use Type: None Smoking Status (MU): Never Smoked Tobacco - Immunization History Most Recent Influenza Vaccination: many years ago Most Recent Pneumonia Vaccination: never Review of Systems Skin: Other - redness of right great toe Respiratory: Negative - NEGATIVE COUGH Gastrointestinal: Negative - NEGATIVE VOMITING, NEGATIVE NAUSEA Musculoskeletal: Edema - swollen right great toe, Other: - pain in left knee Neurological: Negative - NEGATIVE HEADACHE All Other Systems Reviewed And Are Negative: Yes Physical Exam - Summary Physical Exam Summary: Appearance: Well-Appearing, No Pain Distress, Well-Nourished Eyes: conjunctiva clear, no discharge ENT: Hearing grossly normal, no muffled/hoarse voice. Neck: Normal, Supple Respiratory/Lung Sounds: Lungs clear, Normal breath sounds, No respiratory distress, No accessory muscle use Cardiovascular: RRR, No murmur, normal dorsal pulses Musculoskeletal: Normal, mild to moderate hammer toe in right great toe. On the patients left knee, just medial to the tibial tuberosity, there is a nickel- sized, scabbed over lesion that does not appear to be healing properly. 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 The area surrounding this deformity is tender and negative for erthyema Neurological: Alert, muscle tone normal, patient reports no sensation during palpation of his bilateral feet Psychiatric: Normal, age appropriate behavior Skin: skin breakdown noted over the hammer toe that appears to be a broken blister. A small margin of surrounding skin is found to be erythematous and swollen. It is leaking clear fluid. Wound is located directly over the patient s joint line as is the erythematous tissue Triage Information Reviewed: Yes Vital Signs: Initial Vital Signs Temp 97.2 F 04/29/18 11:49 Pulse 87 04/29/18 11:49 Resp 18 04/29/18 11:49 BP 91/63 04/29/18 11:49 Pulse Ox 100 04/29/18 11:49 Vital Signs Reviewed: Yes Lower Extremity Course/Dx - Course Course Of Treatment: This patient is a 58 year old M presenting to [facility] with a chief complaint of redness and swelling in his right great toe since last night. The patient reports that he noticed a blister on his right great toe last night and that when he was getting undressed it burst, leaking fluid. Lab results reviewed with patient. Patient will be discharged with prescription for Kelfex and follow up from PCP. The patient is agreeable with this plan. Medications reviewed. Allergies reviewed. - Differential Dx/Diagnosis Provider Diagnoses: wound infection in foot Discharge - Sign-Out/Discharge Documenting (check all that apply): Discharge/Admit/Transfer - Discharge Plan Condition: Stable Disposition: HOME Discharge Disposition Comment: discharge home Prescriptions: Cephalexin CAP* [Keflex CAP*] 500 mg PO QID #20 cap Patient Education Materials: Wound Infection (ED), Foot Care for People with Diabetes (ED) Referrals: Bismark Pacheco MD [Primary Care Provider] - 1 Day Additional Instructions: CEPHALEXIN: The antibiotic you've been prescribed is a member of the cephalosporin class. This type of antibiotic covers a wide variety of infections, including those of the skin, lungs, and urinary tract. It's useful for staph infections. This antibiotic is slightly similar to the penicillin family. In rare cases , a person who is allergic to penicillin will also be allergic to this medication. If you have had a severe allergic reaction to penicillin, and have not taken this antibiotic since that time, notify your doctor. Antibiotics which cover many germs ("broad spectrum" antibiotics) are more likely to cause diarrhea or "yeast" infections. Women prone to vaginal yeast problems may suffer an attack after taking this antibiotic. In infants, oral thrush (white spots "stuck" on the cheek) or yeast diaper rash may result. See your doctor if these problems occur. Call at once if you develop itching, hives , shortness of breath, or lightheadedness. ANYTIME YOU TAKE AN ANTIBIOTIC, IT IS IMPORTANT TO REPLENISH THE BODY'S SUPPLY OF "GOOD BACTERIA." YOU CAN GET GOOD BACTERIA FROM HIGH QUALITY CULTURED FOODS SUCH LOCAL YOGURT, SOUR KRAUT, SUDHIR RAFAEL, NATURALLY FERMENTED PICKLES AND PROBIOTIC DRINKS. YOU CAN ALSO GET GOOD BACTERIA FROM A PROBIOTIC SUPPLEMENT. WE ARE ALSO GIVING YOU A REFERRAL FOR WOUND CARE. PLEASE CALL THE FOLLOWING NUMBER TO SET UP AN APPOINTMENT. [facility] [phone] The documentation as recorded by the Liyah morales Elizabeth accurately reflects the service I personally performed and the decisions made by me, Snehal Hutson DO.
== END 2018-04-29 13:30 | disposition home or self-care (01) ==
LOC: UCEAST 11:39
DX: S90.421A Blister (nonthermal), right great toe, initial encounter (principal); L08.9 Local infection of the skin and subcutaneous tissue, unspecified; X58.XXXA Exposure to other specified factors, initial encounter; Y93.9 Activity, unspecified; Y92.9 Unspecified place or not applicable; E11.9 Type 2 diabetes mellitus without complications; Z79.84 Long term (current) use of oral hypoglycemic drugs; I50.9 Heart failure, unspecified; I47.1 Supraventricular tachycardia; J81.1 Chronic pulmonary edema; Z91.013 Allergy to seafood; Z82.49 Family history of ischemic heart disease and other diseases of the circulatory system; Z83.3 Family history of diabetes mellitus; Z80.9 Family history of malignant neoplasm, unspecified
CPT/HCPCS: 99213; G0463

== ENCOUNTER 2018-05-18 11:21 | Inpatient (IN) | payer OTHER ==
[2018-05-18 12:05] LABS: ABS Basophils 0 10^3/ul (0-0.2); ABS Eosinophils 0.1 10^3/ul (0-0.6); ABS Lymphocytes 1.3 10^3/ul (1.0-4.8); ABS Monocytes 0.4 10^3/ul (0-0.8); ABS Neutrophils 2.8 10^3/ul (1.5-7.7); ABS Nucleated RBC 0 10^3/ul; Eosinophil % 2.2 % (0-6); Hematocrit 39 % (42-52); Hemoglobin 13.1 g/dl (14.0-18.0); Lymphocyte % 27.8 % (25-47); Mean Corpuscular HGB Conc 34 g/dl (31-36); Mean Corpuscular Hemoglobin 28 pg (27-31); Mean Corpuscular Volume 83 fL (80-94); Mean Platelet Volume 8.5 um3 (7.4-10.4); Nucleated Red Blood Cells % 0.1; Platelet Count 196 10^3/ul (150-450); Red Blood Count 4.69 10^6/ul (4.00-5.40); Red Cell Distribution Width 16 % (10.5-15); White Blood Count 4.6 10^3/ul (3.5-10.8)
[2018-05-18 12:20] LABS: INR 1.29 (0.77-1.02)
--- NOTE | 2018-05-18 12:25 | RAD ---
Indication: Sepsis, hypotension. Comparison: December 26, 2017 CT. Technique: Upright AP 1214 hours Report: Elevated lung volumes and both diffuse mild prominence of the interstitial markings and patchy rarefaction of the mid to upper lung zone interstitial markings. No focal pulmonary lesion, compelling alveolar consolidation, pleural effusion, pneumothorax. Upper normal heart size. Unremarkable central pulmonary vasculature and mediastinal contours. IMPRESSION: Stigmata of obstructive lung disease. No acute pulmonary or cardiac process evident.
[2018-05-18 12:28] LABS: EGFR Non-African American 58.1 (>60)
[2018-05-18] MEDS ORDERED: NS 0.9% 1000 ML* 1,000 ML IV ONE (13:37)
[2018-05-18] MEDS ORDERED: Acetaminophen TAB* 325 MG PO PRN (15:47)
[2018-05-18] MEDS ORDERED: Dextrose 50% Syringe 50 ML* 25 GM/50 ML SYRINGE IV PUSH PRN (15:47)
[2018-05-18] MEDS ORDERED: Ondansetron INJ* 2 MG/ML VIAL IV PRN (15:47)
[2018-05-18] MEDS: Insulin LISPRO* 1 UNITS UNIT SUBCUT SCH (17:51)
[2018-05-18 19:08] LABS: EGFR Non-African American 56.1 (>60)
[2018-05-18] MEDS: Apixaban* 5 MG TAB PO SCH (19:36)
[2018-05-18] MEDS: DULoxetine DR CAP* 60 MG CAP.DR PO SCH (19:36)
[2018-05-18] MEDS: Desipramine TAB* 50 MG PO SCH (19:37)
--- NOTE | 2018-05-18 20:18 | HP ---
CC: Dr. Pacheco; Dr. Ingram * HISTORY AND PHYSICAL: DATE OF ADMISSION: 05/18/18 PRIMARY CARE PROVIDER: Dr. Pacheco. ATTENDING PHYSICIAN WHILE IN THE HOSPITAL: Dr. Israel Perez * (report dictated by Cooper Scruggs NP). CHIEF COMPLAINT: Dizziness. HISTORY OF PRESENT ILLNESS: Mr. Low is a 58-year-old male patient. He has a history of diabetes, history of SVT. He carries a history of depression. In addition to this, he is also carrying a history of cardiomyopathy, last EF of 25% to 30%, nonischemic in nature; history of hyperlipidemia and history of EDIN, which he does not wear a mask for. He says over the last week, he has had episodes of intermittent dizziness, particularly with position changes. He has been following for wound care. He has a diabetic foot ulcer to his right great toe, which has been healing and he recently was just started on Santyl. He has an area of tissue sloughing to the top of his right great toe. He says he has been having Santyl dressing starting today. [facility] to have this evaluated again and while he was there, it was noted that his blood pressures were in the 70s. Then, he took the blood pressure, it did go up into the 90s, but whenever he changed position, he was becoming dizzy. 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 He was asked to go back and have his blood pressure evaluated and when he did, it was again in the 70s. There was concern and he was sent to the ER. He says that at times, he has to bend forward when he is standing up because he feels like he is going to faint, he feels dizzy, he feels lightheaded. He says he has been trying to push fluids, but despite this he is still just feeling dizzy , he has not passed out, he has felt like he is going to pass out at times, but he has not quite yet. He came into the emergency department today and he was evaluated. His blood pressure was fluid responsive, but after fluids, his blood pressure did drop down again into the 80s systolic and we were asked to evaluate for admission. PAST MEDICAL HISTORY: Significant for: 1. Diabetes. 2. SVT. 3. Depression. 4. Cardiomyopathy, EF 25% to 30%. 5. Hyperlipidemia. 6. EDIN. PAST SURGICAL HISTORY: He has had tonsillectomy. HOME MEDICATIONS: This was obtained from the patient's phone as this is the most accurate list that we could find include: 1. [place]-3 fatty acids 1 tablet daily. 2. Vitamin D 1000 units daily. 3. Metformin 1000 mg p.o. twice a day. 4. Multivitamin 1 tablet daily. 5. Norpramin 50 mg p.o. t.i.d. 6. Bisoprolol/hydrochlorothiazide 1 tablet p.o. daily. 7. Aspirin 81 mg daily. 8. Silvadene 1 application daily. 9. Aldactone 12.5 mg daily. 10. Cymbalta 60 mg p.o. b.i.d. 11. Lasix 20 mg daily. 12. Ferrous sulfate 325 mg daily. 13. Insulin lispro sliding scale. 14. Lantus 20 units subcu daily. 15. Apixaban 5 mg daily. 16. Vasotec 5 mg daily. 17. Trulicity 0.75 mg p.o. subcu weekly. 18. Lipitor 20 mg daily. 19. Gisele 60 mg p.o. b.i.d. 20. Amiodarone 200 mg p.o. daily. ALLERGIES TO MEDICATIONS: Include SHELLFISH. FAMILY HISTORY: Mother had a history of diabetes. Father had a history of lung cancer. SOCIAL HISTORY: The patient is a nonsmoker. Rarely drinks alcohol. Surrogate decision maker is his . REVIEW OF SYSTEMS: There is no documented fever. He denies having any significant weight change. There was no double vision. He denies having any ear discharge. He denies having any rhinorrhea. There is no sore throat. No thyroid enlargement. Denies having any chest pain. There is no orthopnea. There is no nocturnal dyspnea. Denies having any abdominal pain. There is no nausea, no vomiting. No dysuria, no frequency. No seizure. No loss of consciousness. No pruritus and no skin ulcerations. Review of 14 systems was completed, all others negative. PHYSICAL EXAMINATION GENERAL: At this time, Mr. Low is a 58-year-old male patient. He is sitting in the ED stretcher. He does not appear to be in any acute distress. VITAL SIGNS: Blood pressure now is 98/59, pulse 76, respirations 18, O2 sat 97 % on room air, temperature 96.7. HEENT: Head: Atraumatic and normocephalic. Eyes: EOMs are intact. Sclerae anicteric and not pale. Throat: Oral mucosa appears to be moist. No oropharyngeal erythema. NECK: Supple. LUNGS: Clear to auscultation bilaterally. There were no wheezes, rales or rhonchi. HEART: Sounds S1, S2. Regular rate and rhythm. No murmurs, rubs or gallops. ABDOMEN: Soft, flat, nontender. Bowel sounds are present. EXTREMITIES: Pulses were 2+ throughout. He is able to move all 4 extremities with 5/5 strength. NEUROLOGICAL: The patient is awake, alert. He is oriented x3. No gross focal deficits. SKIN: Grossly intact. DIAGNOSTIC STUDIES/LAB DATA: WBC 4.6, RBC of 4.69, hemoglobin 13.1, hematocrit 39, platelet count of 169. INR 1.29, PTT of 34.1. Sodium 137, potassium 4.5, chloride of 103, bicarb of 28, BUN 23, creatinine 1.28, glucose of 250, lactic 2.1, calcium 9.3. Total bili 0.4, AST 16, ALT 19, alk phos 47. Troponin 0.03. Albumin 3.9. Chest x-ray obtained today shows stigmata of obstructive lung disease, no acute cardiopulmonary process evident. Old medical records reviewed. ASSESSMENT AND PLAN: Mr. Low is a complex 58-year-old male patient coming into the ED today with complaints of dizziness, on evaluation found to be hypotensive. He will be admitted under observation status for: 1. Dizziness. I suspect this is postural hypotension, probably from combination of over diuresis and possibly too many blood pressure medications. With fluids, he did respond, but we will need to be careful given his cardiomyopathy. My plan will be to hold the diuretics this weekend and then starting on Monday, I would have him take spironolactone 1 day then alternate with Lasix the next day, but not both consecutively. He is on bisoprolol/ hydrochlorothiazide. I am going to stop that and just put him on Zebeta up to 5 mg daily only, he was on 10. In addition to this, I am also going to cut his enalapril down to 2.5 mg daily and see if we can get a better symptom management this way and then follow up with Dr. Ingram and see if there is any other further titration that he can do in the outpatient setting and we will continue to follow him. 2. Diabetes. We will put him on lispro sliding scale. 3. History of supraventricular tachycardia. Continue his beta-nga and the amiodarone. 4. Depression. Continue with supportive care. 5. Cardiomyopathy. Continue with his meds at a reduced rate. 6. Hyperlipidemia. Continue with his meds as prescribed. 7. Obstructive sleep apnea. Follow up with PCP. 8. DVT prophylaxis: He is on apixaban. 9. Code status: He is a full code. 10. Fluids, electrolytes and nutrition: He can have a heart-healthy diet. TIME SPENT: Time spent on admission was 60 minutes, greater than half the time was spent [id number] with the patient obtaining my history and physical, other half of the time was spent going over the plan of care with the patient and implementing the plan of care. I did discuss the plan of care with my attending, Dr. Perez, he is in agreement. COOPER SCRUGGS, BERNICE [id number]/[facility] #: [id number] MARYANNE
[2018-05-18 21:47] LABS: Urine Appearance Cloudy; Urine Blood Negative (Negative); Urine Color Amber; Urine Ketones Trace (Negative); Urine Protein 2+(100 mg/dL) (Negative); Urine Red Blood Cell 1+(3-5/hpf) (Absent); Urine Specific Gravity 1.025 (1.010-1.030); Urine Urobilinogen Negative (Negative); Urine White Blood Cell Trace(0-5/hpf) (Absent)
[2018-05-18] MEDS ORDERED: Heparin VIAL(*) 5000 UNITS/ML VIAL (FIVE THOUSAND) SUBCUT SCH (22:00)
[2018-05-19 06:45] LABS: ABS Basophils 0 10^3/ul (0-0.2); ABS Eosinophils 0.1 10^3/ul (0-0.6); ABS Lymphocytes 1.8 10^3/ul (1.0-4.8); ABS Monocytes 0.5 10^3/ul (0-0.8); ABS Neutrophils 1.8 10^3/ul (1.5-7.7); ABS Nucleated RBC 0 10^3/ul; Eosinophil % 3.4 % (0-6); Hematocrit 39 % (42-52); Hemoglobin 13.1 g/dl (14.0-18.0); Lymphocyte % 41.2 % (25-47); Mean Corpuscular HGB Conc 34 g/dl (31-36); Mean Corpuscular Hemoglobin 28 pg (27-31); Mean Corpuscular Volume 83 fL (80-94); Mean Platelet Volume 8.9 um3 (7.4-10.4); Nucleated Red Blood Cells % 0.1; Platelet Count 188 10^3/ul (150-450); Red Blood Count 4.71 10^6/ul (4.00-5.40); Red Cell Distribution Width 16 % (10.5-15); White Blood Count 4.3 10^3/ul (3.5-10.8)
[2018-05-19 06:47] LABS: INR 1.16 (0.77-1.02)
[2018-05-19 06:59] LABS: EGFR Non-African American 73.9 (>60)
[2018-05-19] MEDS: Desipramine TAB* 50 MG PO SCH ×3 (08:14→20:51)
[2018-05-19] MEDS: DULoxetine DR CAP* 60 MG CAP.DR PO SCH ×2 (08:15→20:51)
[2018-05-19] MEDS: Bisoprolol TAB* 5 MG PO SCH (08:15)
[2018-05-19] MEDS: Apixaban* 5 MG TAB PO SCH ×2 (08:16→20:50)
[2018-05-19] MEDS: Insulin LISPRO* 1 UNITS UNIT SUBCUT SCH ×3 (08:16→17:21)
[2018-05-19] MEDS: Atorvastatin* 20 MG TAB PO SCH (08:17)
[2018-05-19] MEDS: Aspirin 81 mg CHEW TAB* 81 MG TAB.CHEW PO SCH (08:17)
[2018-05-19] MEDS: Amiodarone TAB* 200 MG PO SCH (08:17)
[2018-05-19] MEDS: Ferrous Sulfate TAB* 325 MG PO SCH (08:17)
[2018-05-19] MEDS: Insulin GLARGINE(*) 1 UNITS UNIT SUBCUT SCH (08:18)
[2018-05-19] MEDS: Enalapril TAB* 5 MG PO SCH (08:18)
--- NOTE | 2018-05-19 18:26 | PN ---
Subjective Date of Service: 05/19/18 Interval History: HOSPITALIST PROGRESS NOTE Patient seen and examined at bedside. Care reviewed and d/w Diana Dixon RN. He feels a little better today, but still feels lightheaded when changing positions. Denies chest pain or palpitations. Last saw Dr. Hill at [place] end of March and his Bisoprolol was increased from 5 to 10mg/day. States later on he was called and told to change one of his diuretic from PRN with weight gain to daily. Family History: Unchanged from Admission Social History: Unchanged from Admission Past Medical History: Unchanged from Admission Objective Active Medications: Acetaminophen (Tylenol Tab*) 650 mg PO Q4H PRN PRN Reason: FEVER/PAIN Amiodarone HCl (Cordarone Tab*) 200 mg PO DAILY [facility] Last Admin: 05/19/18 08:17 Dose: 200 mg Apixaban (Eliquis*) 5 mg PO BID [facility] Last Admin: 05/19/18 08:16 Dose: 5 mg Aspirin (Aspirin 81 Mg Chew Tab*) 81 mg PO DAILY [facility] Last Admin: 05/19/18 08:17 Dose: 81 mg Atorvastatin Calcium (Lipitor*) 20 mg PO DAILY [facility] Last Admin: 05/19/18 08:17 Dose: 20 mg Bisoprolol Fumarate (Zebeta Tab*) 5 mg PO DAILY [facility] Last Admin: 05/19/18 08:15 Dose: Not Given Desipramine HCl (Norpramin Tab*) 50 mg PO TID [facility] Last Admin: 05/19/18 14:21 Dose: 50 mg Dextrose (D50w Syringe 50 Ml*) 12.5 gm IV PUSH .FOR FS < 60 - SS PRN PRN Reason: FS < 60 Duloxetine HCl (Cymbalta Cap*) 60 mg PO BID [facility] Last Admin: 05/19/18 08:15 Dose: 60 mg Enalapril Maleate (Vasotec Tab*) 2.5 mg PO DAILY [facility] Last Admin: 05/19/18 08:18 Dose: Not Given Ferrous Sulfate (Ferrous Sulfate Tab*) 325 mg PO DAILY [facility] Last Admin: 05/19/18 08:17 Dose: 325 mg Insulin Glargine (Lantus(*)) 20 units SUBCUT DAILY [facility] Last Admin: 05/19/18 08:18 Dose: 20 units Insulin Human Lispro (Humalog*) [address] [facility]; Protocol Last Admin: 05/19/18 17:21 Dose: 3 unit Ondansetron HCl (Zofran Inj*) 4 mg IV Q6H PRN PRN Reason: NAUSEA Vital Signs - 8 hr 05/19/18 05/19/18 05/19/18 10:46 10:48 10:50 Temperature 97.9 F Pulse Rate 82 87 97 Respiratory 16 16 16 Rate Blood Pressure 92/60 73/53 97/30 (mmHg) O2 Sat by Pulse 98 100 100 Oximetry 05/19/18 11:26 Temperature 99.2 F Pulse Rate 83 Respiratory 16 Rate Blood Pressure 102/72 (mmHg) O2 Sat by Pulse 98 Oximetry Oxygen Devices in Use Now: None Appearance: Pleasant gentleman lying in bed in NAD. Eyes: No Scleral Icterus Ears/Nose/Mouth/Throat: Mucous Membranes Moist Neck: Trachea Midline Respiratory: Symmetrical Chest Expansion and Respiratory Effort, Clear to Auscultation Cardiovascular: RRR - Normal S1 and S2 Extremities: No Edema Neurological: Alert and Oriented x 3, NL Muscle Strength and Tone Result Diagrams: 05/19/18 06:14 05/19/18 06:15 Assess/Plan/Problems-Billing Assessment: Mr. Low is a 58yo M with PMH of type 2 DM, SVT (atypical atrial flutter), depression, non ischemic CMP with EF 25-30%, HLD, EDIN, who presented to ED referred from wound clinic, with c/o dizziness, found to have orthostatic hypotension. - Patient Problems (1) Orthostatic hypotension Comment: - As per Dr. Hill's last note, Furosemide was used on a PRN basis, so I suspect this is the one he was told to take daily, on top of HCTZ and Aldactone, with a higher Bisoprolol dose. - Diuretics on hold for now, but will hold off on IVF as he's at high risk for CHF decompensation. - Still orthostatic and symptomatic, but less intense then yesterday. - Continue to monitor. (2) Diabetes Comment: - Continue Lispro SS. (3) Non-ischemic cardiomyopathy Comment: - Stable at this time. - Continue lower dose bisoprolol, lisinopril. - Continue Amiodarone. (4) Atrial flutter Comment: - Continue bisoprolol and apixaban. (5) Depression Comment: - Continue desipramine and duloxetine. (6) DVT prophylaxis Comment: - Apixaban. (7) Full code status Comment: Status and Disposition: Change to inpatient. Anticipate d/c in AM if orthostasis resolved, but will need close f/u as outpatient.
[2018-05-20] MEDS: Insulin GLARGINE(*) 1 UNITS UNIT SUBCUT SCH (09:20)
[2018-05-20] MEDS: Insulin LISPRO* 1 UNITS UNIT SUBCUT SCH ×3 (09:20→17:44)
[2018-05-20] MEDS: Apixaban* 5 MG TAB PO SCH ×2 (09:21→20:13)
[2018-05-20] MEDS: Enalapril TAB* 5 MG PO SCH (09:22)
[2018-05-20] MEDS: Aspirin 81 mg CHEW TAB* 81 MG TAB.CHEW PO SCH (09:24)
[2018-05-20] MEDS: Ferrous Sulfate TAB* 325 MG PO SCH (09:24)
[2018-05-20] MEDS: Atorvastatin* 20 MG TAB PO SCH (09:25)
[2018-05-20] MEDS: DULoxetine DR CAP* 60 MG CAP.DR PO SCH ×2 (09:26→20:13)
[2018-05-20] MEDS: Amiodarone TAB* 200 MG PO SCH (09:27)
[2018-05-20] MEDS: Bisoprolol TAB* 5 MG PO SCH (09:27)
[2018-05-20] MEDS: Desipramine TAB* 50 MG PO SCH ×3 (09:28→20:14)
--- NOTE | 2018-05-20 15:13 | PN ---
Subjective Date of Service: 05/20/18 Interval History: HOSPITALIST PROGRESS NOTE Patient seen and examined at bedside. Care reviewed and d/w Angel Nieto RN. He still has dizziness when changing positions. Denies CP, palpitations, dyspnea. Family History: Unchanged from Admission Social History: Unchanged from Admission Past Medical History: Unchanged from Admission Objective Active Medications: Acetaminophen (Tylenol Tab*) 650 mg PO Q4H PRN PRN Reason: FEVER/PAIN Amiodarone HCl (Cordarone Tab*) 200 mg PO DAILY [facility] Last Admin: 05/20/18 09:27 Dose: 200 mg Apixaban (Eliquis*) 5 mg PO BID [facility] Last Admin: 05/20/18 09:21 Dose: 5 mg Aspirin (Aspirin 81 Mg Chew Tab*) 81 mg PO DAILY [facility] Last Admin: 05/20/18 09:24 Dose: 81 mg Atorvastatin Calcium (Lipitor*) 20 mg PO DAILY [facility] Last Admin: 05/20/18 09:25 Dose: 20 mg Bisoprolol Fumarate (Zebeta Tab*) 5 mg PO DAILY [facility] Last Admin: 05/20/18 09:27 Dose: 5 mg Desipramine HCl (Norpramin Tab*) 50 mg PO TID [facility] Last Admin: 05/20/18 09:28 Dose: 50 mg Dextrose (D50w Syringe 50 Ml*) 12.5 gm IV PUSH .FOR FS < 60 - SS PRN PRN Reason: FS < 60 Duloxetine HCl (Cymbalta Cap*) 60 mg PO BID [facility] Last Admin: 05/20/18 09:26 Dose: 60 mg Ferrous Sulfate (Ferrous Sulfate Tab*) 325 mg PO DAILY [facility] Last Admin: 05/20/18 09:24 Dose: 325 mg Insulin Glargine (Lantus(*)) 20 units SUBCUT DAILY [facility] Last Admin: 05/20/18 09:20 Dose: 20 units Insulin Human Lispro (Humalog*) 0 units SUBCUT [facility]; Protocol Last Admin: 05/20/18 12:25 Dose: 6 unit Ondansetron HCl (Zofran Inj*) 4 mg IV Q6H PRN PRN Reason: NAUSEA Vital Signs - 8 hr 05/20/18 05/20/18 05/20/18 07:45 08:00 10:11 Temperature 99.8 F 99.3 F Pulse Rate 84 82 Respiratory 17 18 16 Rate Blood Pressure 96/64 97/63 (mmHg) O2 Sat by Pulse 98 100 Oximetry 05/20/18 05/20/18 05/20/18 10:13 10:15 10:19 Temperature Pulse Rate 87 99 87 Respiratory Rate Blood Pressure 84/60 65/34 84/60 (mmHg) O2 Sat by Pulse 100 100 Oximetry 05/20/18 05/20/18 10:20 11:17 Temperature 99.0 F Pulse Rate 98 83 Respiratory 16 Rate Blood Pressure 65/34 97/63 (mmHg) O2 Sat by Pulse 98 Oximetry Oxygen Devices in Use Now: None Appearance: Pleasant gentleman lying in bed in NAD. Eyes: No Scleral Icterus Ears/Nose/Mouth/Throat: Mucous Membranes Moist Neck: Trachea Midline Respiratory: Symmetrical Chest Expansion and Respiratory Effort, Clear to Auscultation Cardiovascular: RRR - Normal S1 and S2 Neurological: Alert and Oriented x 3, NL Muscle Strength and Tone Result Diagrams: 05/19/18 06:14 05/19/18 06:15 Assess/Plan/Problems-Billing Assessment: Mr. Low is a 58yo M with PMH of type 2 DM, SVT (atypical atrial flutter), depression, non ischemic CMP with EF 25-30%, HLD, EDIN, who presented to ED referred from wound clinic, with c/o dizziness, found to have orthostatic hypotension. - Patient Problems (1) Orthostatic hypotension Comment: - As per Dr. Hill's last note, Furosemide was used on a PRN basis, so I suspect this is the one he was told to take daily, on top of HCTZ and Aldactone, with a higher Bisoprolol dose. - Diuretics on hold for now, but will hold off on IVF as he's at high risk for CHF decompensation. - Still orthostatic and symptomatic - will request Cardiology consult. (2) Diabetes Comment: - Continue Lispro SS. (3) Non-ischemic cardiomyopathy Comment: - Stable at this time. - Continue lower dose bisoprolol, lisinopril. - Continue Amiodarone. (4) Atrial flutter Comment: - Continue bisoprolol and apixaban. (5) Depression Comment: - Continue desipramine and duloxetine. (6) DVT prophylaxis Comment: - Apixaban. (7) Full code status Comment: Status and Disposition: Inpatient. Anticipate d/c when orthostasis improved.
--- NOTE | 2018-05-20 20:40 | CONS ---
CC: Dr. Ingram; Dr. Bismark Pacheco; Hospitalist; Dr. Barboza * CARDIOLOGY CONSULTATION: DATE OF CONSULT: 05/20/18 REASON FOR CONSULTATION: Hypotension. CHIEF COMPLAINT: Dizziness with standing. HISTORY OF PRESENT ILLNESS: The patient is a 58-year-old gentleman, followed by Dr. Ingram and Dr. Barboza, who has severe cardiomyopathy (25% to 30% in December 2017) that is felt to be nonischemic with only mild plaquing noted on cath in December 2017. The patient had his congestive heart failure medications adjusted a few times this summer, his beta nga medication was changed (conversion from Coreg to bisoprolol) and his diuretic dose was increased recently from every other day to daily. The patient has been followed for a diabetic toe ulcer that is not felt to be infected, and while in the [facility]ound Clinic, he was quite dizzy standing and was noted to have hypotension and he was admitted. On admission, his diuretics were held, he received a small amount of fluid and his current beta nga dose was cut in half; however, his blood pressure remained very low. The patient was examined with the presence of his . He states he has been dizzy standing up for about a week. He has been taking his medications as prescribed with adjustments as above, increase in both his beta nga and diuretic within the last month through Dr. Barboza's office. The patient denies fevers, chills, sweats. He has no infectious symptoms. No earaches. No sinus infection. No coughing. He denies any hematuria, dysuria, constipation, or diarrhea. The patient did travel to [place] at the end of April with his driving both ways and about 3 or 4 days later was quite winded walking in the [facility]. The patient denies orthopnea, PND, chest pain, pressure, heaviness. PAST MEDICAL HISTORY: The patient has a past medical history of: 1. Nonischemic cardiomyopathy, ejection fraction 25% to 30% in December of this year (04/23/17 echo normal in [place] with an ejection fraction of 55% to 60 %). 2. Mild coronary artery disease with plaquing. 3. Diabetes. 4. Dyslipidemia. 5. Obstructive sleep apnea. 6. Supraventricular tachycardia. MEDICATIONS: Current inpatient medications include: 1. Tylenol p.r.n. 2. Cordarone 200 mg a day. 3. Eliquis 5 mg b.i.d. 4. Aspirin 81 mg a day. 5. Lipitor 20 mg a day. 6. Bisoprolol 5 mg a day. 7. Desipramine 50 mg t.i.d. 8. Cymbalta 60 mg b.i.d. 9. Iron sulfate 325 mg a day. 10. Glargine (Lantus) insulin. 11. Humalog insulin. 12. Zofran p.r.n. ALLERGIES: No known drug allergies, but allergy to SHELLFISH. FAMILY HISTORY: Negative for cardiomyopathy or coronary disease. 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 REVIEW OF SYSTEMS: See extensive history of present illness, but no recent orthopnea, PND, chest pain, pressure, heaviness, change in bowel or bladder habits. No fevers, chills, sweats, or infectious signs. He is being treated for toe ulcer, but apparently this is not infected. All other 14-point review of systems was negative. PHYSICAL EXAM: On exam, the patient is 6 feet 3 inches, weighs 264 pounds with a BMI of 33. Vital Signs: On admission, blood pressure was 92/70, pulse was 81 , oxygen saturation on room air 100%, and temperature 96.7. Currently, blood pressure at 10 this morning lying down was 97/63 with a pulse of 82, sitting blood pressure 84/60 with a pulse of 87, and standing blood pressure 65/34 with a pulse of 98. Temperature 99 degrees at 11 this morning, respiratory rate is 16, and heart rate 83. General Appearance: Centripetally overweight, older middle-aged gentleman, lying at 20 degrees, appears comfortable, in no acute distress. Psychologically, pleasant and cooperative. Neurologically, awake, alert, and oriented to person, place, and time. Cranial nerves II through XII intact. Grossly normal sensory and motor function in the upper and lower extremities, normal gait. Skin: Warm, dry without appreciable cyanosis or rashes. No tenting of the skin. Mucous membranes moist. Neck: Without appreciable or increased JVP. Good carotid pulses. No audible bruits. Lungs are clear with good effort. No wheezes, rales, or rhonchi. Coronary: S1, S2, regular without murmurs or rubs. Abdomen: Overweight. Active bowel sounds. Soft, nontender. No appreciable hepatomegaly. Lower extremities are free of edema and warm. He has a dressing on the left great toe and I did not examine that under the dressing. DIAGNOSTIC STUDIES/LAB DATA: White count 4.3, hemoglobin 13.1, hematocrit 39, platelets 188. INR 1.29, PTT 34. BNP today 129. Electrolytes yesterday, 05/30: Sodium 139, potassium 4.5, chloride 105, bicarb 28, BUN 21, creatinine 1.04, glucose 114. On admission, ALT was 19. Troponin 0.03. Total protein 7, albumin 3.9. TSH 1.1, free T4 1.18, total T3 0.58, and lactic acid 2.1. Urinalysis negative for bacteria, esterase negative and nitrite negative, but spilling protein and bacteria were seen. Blood cultures and urine culture drawn 05/18/18 were negative. IMPRESSION AND PLAN: In summary, Mejia Low is a 58-year-old gentleman diagnosed with a nonischemic cardiomyopathy in December of this year, whose congestive heart failure cocktail had been made more aggressive with, where he was on bisoprolol/hydrochlorothiazide 10/6.25 mg in addition to spironolactone 12.5 mg a day and Lasix 20 mg a day, as well as Vasotec 5 mg a day. The patient is additionally on amiodarone for tachyarrhythmias and has very mild thyroid abnormalities by lab tests. I agree with discontinuation of the hydrochlorothiazide portion of the Ziac and decreasing the dose of bisoprolol. I recommended he stop the EVELYN inhibitor this morning and I agree that volume repletion with diet is preferable to rapid hydration. I think the patient was just overmedicated for his vital signs and additionally we had very hot weather in the 90 to 100 degree range over the last week or so, which could have contributed with insensible loss. My hope is, once his volume status is normalized (his creatinine of 1.28 is higher than his baseline of 0.98), we could reintroduce an EVELYN inhibitor and potentially Aldactone being less aggressive with his diuretics at least in the summer. Possible additional contributions could include pulmonary embolus and right heart failure, but I think it is unlikely on anticoagulants even with his driving history and low-flow state. Compression stockings might help in the short term with orthostasis and could be considered inpatient or outpatient to allow for optimization of his cardiac medications. An echo was recommended, but unable to be done today, so we can reevaluate both left and right ventricular function at this time. Any infection could lead to vasodilatation and contributions, but I do not have evidence on history or labs to suggest an active infection, but more aggressive evaluation for infection or inflammation could be done by checking sed rates and C- reactive protein with his history of toe ulceration. Additional recommendations will be made pending his response to holding his medications longer and holding the EVELYN inhibitor as well as the diuretics. [id number]/[facility] #: [id number] MARYANNE
[2018-05-21 05:06] LABS: ABS Basophils 0 10^3/ul (0-0.2); ABS Eosinophils 0.1 10^3/ul (0-0.6); ABS Lymphocytes 1.8 10^3/ul (1.0-4.8); ABS Monocytes 0.7 10^3/ul (0-0.8); ABS Neutrophils 2.2 10^3/ul (1.5-7.7); ABS Nucleated RBC 0 10^3/ul; Eosinophil % 2.4 % (0-6); Hematocrit 40 % (42-52); Hemoglobin 13.1 g/dl (14.0-18.0); Lymphocyte % 37.9 % (25-47); Mean Corpuscular HGB Conc 33 g/dl (31-36); Mean Corpuscular Hemoglobin 27 pg (27-31); Mean Corpuscular Volume 83 fL (80-94); Mean Platelet Volume 8.8 um3 (7.4-10.4); Nucleated Red Blood Cells % 0.1; Platelet Count 195 10^3/ul (150-450); Red Blood Count 4.78 10^6/ul (4.00-5.40); Red Cell Distribution Width 16 % (10.5-15); White Blood Count 4.8 10^3/ul (3.5-10.8)
[2018-05-21] MEDS: Aspirin 81 mg CHEW TAB* 81 MG TAB.CHEW PO SCH (07:45)
[2018-05-21] MEDS: Atorvastatin* 20 MG TAB PO SCH (07:45)
[2018-05-21] MEDS: Apixaban* 5 MG TAB PO SCH ×2 (07:45→20:58)
[2018-05-21] MEDS: DULoxetine DR CAP* 60 MG CAP.DR PO SCH ×2 (07:46→20:58)
[2018-05-21] MEDS: Ferrous Sulfate TAB* 325 MG PO SCH (07:46)
[2018-05-21] MEDS: Amiodarone TAB* 200 MG PO SCH (07:46)
[2018-05-21] MEDS: Desipramine TAB* 50 MG PO SCH ×3 (07:46→20:58)
[2018-05-21] MEDS: Bisoprolol TAB* 5 MG PO SCH (07:48)
[2018-05-21] MEDS: Insulin GLARGINE(*) 1 UNITS UNIT SUBCUT SCH (09:20)
[2018-05-21] MEDS: Insulin LISPRO* 1 UNITS UNIT SUBCUT SCH ×3 (09:21→17:23)
--- NOTE | 2018-05-21 11:00 | ECHO ---
Patient: THEE LOWERY [facility] Rec#: [id number] : 1960 Date: 05/21/2018 Age: 58y Height: 191 cm / 75.2 in Weight: 120 kg / 264.5 lbs Sex: M BSA: 2.48 Room#: [facility] Admit Date#: 05/19/2018 Type: Inpatient Referring: Marsha Del Valle MD Reading: Luis Espino MD Fitter Mechanic: Ludmila Singer RDCS,RDMS CC: Bismark Pacheco MD CC: Kennedy Ingram MD Transthoracic Echocardiogram Indication: CHF, Hypotension BP: 100/63 HR: 82 Rhythm: NSR Findings History: Cardiomyopathy, CAD, HLD, DM, SVT Technical Comments: The study quality is good. Left Ventricle: The left ventricular chamber size is mildly dilated. Mild concentric left ventricular hypertrophy is observed. There is global hypokinesis of the left ventricle with minor regional variation. The estimated ejection fraction is 25-30%. There is an E to A reversal in the mitral valve flow pattern suggestive of diastolic dysfunction. Left Atrium: The left atrium is slightly dilated. Right Ventricle: The right ventricle wall thickness is mildly increased. The right ventricle is mildly dilated. The right ventricular global systolic function is normal. Right Atrium: The right atrial cavity size is normal. Aortic Valve: The aortic valve is trileaflet. Systolic excursion of the aortic valve is normal. There is a trace of aortic regurgitation. There is no evidence of aortic stenosis. Mitral Valve: The mitral valve leaflets appear normal. There is no evidence of mitral regurgitation. There is no evidence of mitral stenosis. Tricuspid Valve: The tricuspid valve leaflets are normal. There is trace tricuspid regurgitation. Unable to estimate the right ventricular systolic pressure. Pulmonic Valve: The pulmonic valve appears normal. There is a trace pulmonic regurgitation. Pericardium: There is no significant pericardial effusion. Aorta: There is no dilatation of the ascending aorta. There is no dilatation of the aortic arch. There is mild dilatation of the aortic root. Pulmonary Artery: The main pulmonary artery appears normal. Venous: The inferior vena cava appears normal in size. There is a greater than 50% respiratory change in the inferior vena cava dimension. Summary: There are no significant changes when compared to the previous study done on 12/26/2017, LV EF still severely reduced. Conclusions The left ventricular chamber size is mildly dilated. Mild concentric left ventricular hypertrophy is observed. There is global hypokinesis of the left ventricle with minor regional variation. The estimated ejection fraction is 25-30%. There is an E to A reversal in the mitral valve flow pattern suggestive of diastolic dysfunction. The left atrium is slightly dilated. There is a trace of aortic regurgitation. There is trace tricuspid regurgitation. Unable to estimate the right ventricular systolic pressure. There is a trace pulmonic regurgitation. There is mild dilatation of the aortic root. Measurements Name Value Normal Range RVIDd (AP) 2D 4.1 cm (0.9 - 2.6) RVDdMajor (2D) 3.7 cm (2.2 - 4.4) RAd ISD 4CH 4.5 cm (3.4 - 4.9) RA (A4C)W 3.9 cm (2.9 - 4.6) IVSd (2D) 1.4 cm (0.6 - 1) LVPWd (2D) 1.2 cm (0.6 - 1) LVIDd (2D) 5.8 cm (3.6 - 5.4) LVIDs (2D) 5.1 cm - LV FS (2D) 12 % (25 - 45) Aortic Annulus 2.6 cm (1.4 - 2.6) Ao root diameter (2D) 4.1 cm (2.1 - 3.5) Ascending Ao 3.4 cm (2.1 - 3.4) Aortic arch 2.8 cm (1.8 - 3.4) LA dimension (AP) 2D 4.1 cm (2.3 - 3.8) LAd ISD 4CH 5.6 cm (2.9 - 5.3) LA ISD 4CH W 4.2 cm (2.5 - 4.5) Name Value Normal Range LA ESV BP (A/L) index 27 ml/m2 - Name Value Normal Range MV E-wave Vmax 0.2 m/sec - MV deceleration time 166 msec - MV A-wave Vmax 0.6 m/sec - MV E:A ratio 0.4 ratio - LV septal e' Vmax 0.03 m/sec - LV lateral e' Vmax 0.04 m/sec - LV E:e' septal ratio 7 ratio - LV E:e' lateral ratio 5 ratio - Name Value Normal Range AV Vmax 0.7 m/sec - AV VTI 11 cm - AV peak gradient 2 mmHg - AV mean gradient 1 mmHg - LVOT Vmax 0.5 m/sec - LVOT VTI 9 cm - LVOT peak gradient 1 mmHg - LVOT mean gradient 1 mmHg - CHRIS Vmax 0.5 m/sec - Name Value Normal Range RAP 8 mmHg - IVC diameter 1 cm - Name Value Normal Range PV Vmax 1 m/sec - PV peak gradient 4 mmHg -
[2018-05-21] MEDS ORDERED: NS 0.9% 500 ML* 500 ML IV ONE (13:33)
--- NOTE | 2018-05-21 13:49 | PN ---
Subjective Date of Service: 05/21/18 Interval History: Pt still feels lightheaded when geting up. SBP down to 70'2 when standing up. Family History: Unchanged from Admission Social History: Unchanged from Admission Past Medical History: Unchanged from Admission Objective Active Medications: Acetaminophen (Tylenol Tab*) 650 mg PO Q4H PRN PRN Reason: FEVER/PAIN Amiodarone HCl (Cordarone Tab*) 200 mg PO DAILY [facility] Last Admin: 05/21/18 07:46 Dose: 200 mg Apixaban (Eliquis*) 5 mg PO BID [facility] Last Admin: 05/21/18 07:45 Dose: 5 mg Aspirin (Aspirin 81 Mg Chew Tab*) 81 mg PO DAILY [facility] Last Admin: 05/21/18 07:45 Dose: 81 mg Atorvastatin Calcium (Lipitor*) 20 mg PO DAILY [facility] Last Admin: 05/21/18 07:45 Dose: 20 mg Bisoprolol Fumarate (Zebeta Tab*) 2.5 mg PO DAILY [facility] Desipramine HCl (Norpramin Tab*) 50 mg PO TID [facility] Last Admin: 05/21/18 07:46 Dose: 50 mg Dextrose (D50w Syringe 50 Ml*) 12.5 gm IV PUSH .FOR FS < 60 - SS PRN PRN Reason: FS < 60 Duloxetine HCl (Cymbalta Cap*) 60 mg PO BID [facility] Last Admin: 05/21/18 07:46 Dose: 60 mg Ferrous Sulfate (Ferrous Sulfate Tab*) 325 mg PO DAILY [facility] Last Admin: 05/21/18 07:46 Dose: 325 mg Sodium Chloride (Ns 0.9% 500 Ml*) 500 mls @ 50 mls/hr IV ONCE ONE Stop: 05/21/18 23:32 Insulin Glargine (Lantus(*)) 20 units SUBCUT DAILY [facility] Last Admin: 05/21/18 09:20 Dose: 20 units Insulin Human Lispro (Humalog*) 0 units SUBCUT AC [facility]; Protocol Last Admin: 05/21/18 12:20 Dose: 6 unit Ondansetron HCl (Zofran Inj*) 4 mg IV Q6H PRN PRN Reason: NAUSEA Vital Signs - 8 hr 05/21/18 05/21/18 05/21/18 07:43 08:00 11:42 Temperature 97.6 F 97.9 F Pulse Rate 80 82 Respiratory 16 16 16 Rate Blood Pressure 93/62 92/62 (mmHg) O2 Sat by Pulse 100 100 Oximetry 05/21/18 05/21/18 05/21/18 13:07 13:09 13:11 Temperature Pulse Rate 85 87 95 Respiratory Rate Blood Pressure 101/61 86/62 65/40 (mmHg) O2 Sat by Pulse Oximetry Oxygen Devices in Use Now: None Appearance: 58 yo M in nAD, aAOx3 Eyes: No Scleral Icterus, PERRLA Ears/Nose/Mouth/Throat: NL Teeth, Lips, Gums, Clear Oropharnyx, Mucous Membranes Moist Neck: NL Appearance and Movements; NL JVP, Trachea Midline Respiratory: Symmetrical Chest Expansion and Respiratory Effort, Clear to Auscultation Cardiovascular: NL Sounds; No Murmurs; No JVD, RRR Abdominal: NL Sounds; No Tenderness; No Distention Lymphatic: No Cervical Adenopathy Extremities: No Edema, No Clubbing, Cyanosis Skin: No Rash or Ulcers, No Nodules or Sclerosis Neurological: Alert and Oriented x 3, NL Muscle Strength and Tone, - - R great to DM foot ulcer at 2 cm in diam , clear edges, not infected Result Diagrams: 05/21/18 04:37 05/19/18 06:15 Microbiology and Other Data: Microbiology 05/18/18 11:56 Aerobic Blood Culture - Preliminary Blood Venous No Growth Day 3 Anaerobic Blood Culture - Preliminary No Growth Day 3 05/18/18 11:56 Aerobic Blood Culture - Preliminary Blood Venous No Growth Day 3 Anaerobic Blood Culture - Preliminary No Growth Day 3 05/18/18 21:35 Urine Culture - Final Urine Assess/Plan/Problems-Billing Assessment: Mr. Low is a 58yo M with PMH of type 2 DM, SVT (atypical atrial flutter), depression, non ischemic CMP with EF 25-30%, HLD, EDIN, who presented to ED referred from wound clinic, with c/o dizziness, found to have orthostatic hypotension. - Patient Problems (1) Orthostatic hypotension Comment: pt's desilverizer at [facility] is Dr[facility] Joe's - Diuretics on hold for now, pt still orthostatic. Will start gentle IVF (total of 500 ml) -will lower bisoprolol's dose from 5 to 2.5 mg. (2) Atrial flutter Comment: - Continue bisoprolol and apixaban. (3) Depression Comment: - Continue desipramine and duloxetine. (4) Diabetes Comment: - Continue Lispro SS. (5) Non-ischemic cardiomyopathy Comment: - Stable at this time. - Continue lower dose bisoprolol - Continue Amiodarone. (6) Hyperlipidemia Comment: - Continue atorvastatin. (7) Systolic CHF Comment: in 12/2017 diagnosed severe CM with EF 25% and systolic congestive heart failure. Cardiac cath without significant cornary artery disease. now pt is slightly hypovelemic (8) DVT prophylaxis SNOMED Code(s): 346242094 Comment: - Apixaban. Status and Disposition: Inpatient. Anticipate d/c when orthostasis improved.
--- NOTE | 2018-05-22 06:50 | ED ---
Mo Dias Tiffany, scribed for David Naik MD on 05/18/18 at 1403 . Complex/Multi-Sys Presentation - HPI Summary HPI Summary: 58 year old M presenting to [facility] from wound clinic complains of hypotension since 10:00 today. Symptoms aggravated by nothing. Symptoms alleviated by nothing. Patient reports cough. Denies fever, chills, diaphoresis, vomiting/ diarrhea, dsyuria. States he was at wound clinic for ruptured blister on right great toe x3 weeks. Additionally c/o dizziness and lightheadedness only when he stands up x1 week. - History Of Current Complaint Chief Complaint: EDDizziness Time Seen by Provider: 05/18/18 11:40 Hx Obtained From: Patient Onset/Duration: Lasting Hours - 10:00 today, Still Present Timing: Constant Aggravating Factor(s): Nothing Alleviating Factor(s): Nothing Associated Signs And Symptoms: Positive: Cough, Other - wound clinic for ruptured blister on right great toe x3 weeks. Additionally c/o dizziness and lightheadedness only when he stands up x1 week; NEGATIVE: Chills. Negative: Vomiting, Diarrhea, Fever - Allergies/Home Medications Allergies/Adverse Reactions: Allergies Allergy/AdvReac Type Severity Reaction Status Date / Time shellfish derived Allergy Numbness Verified 05/18/18 11:26 And Tingling Home Medications: Home Medications Amiodarone TAB* [Cordarone TAB*] 200 mg PO DAILY 05/18/18 [History Confirmed 04/30] Apixaban* [Eliquis*] 5 mg PO DAILY 05/18/18 [History Confirmed 05/18/18] Aspirin 81 mg CHEW TAB* [Aspirin Low Dose TAB*] 81 mg PO DAILY 05/18/18 [ History Confirmed 05/18/18] Atorvastatin* [Lipitor*] 20 mg PO DAILY 05/18/18 [History Confirmed 05/18/18] Bisoprolol/Hydrochlorothiazide [Ziac 10-6.25 mg-] 1 tab PO DAILY 05/18/18 [ History Confirmed 05/18/18] Cholecalciferol (Vitamin D3) [Vitamin D3] 1,000 unit PO DAILY 05/18/18 [History Confirmed 05/18/18] DULoxetine DR BROWN* [Cymbalta CAP*] 60 mg PO BID 05/18/18 [History Confirmed 04/30] Desipramine TAB* [Norpramin TAB*] 50 mg PO TID 05/18/18 [History Confirmed 05/18] Dulaglutide (NF) [Trulicity (NF)] 0.75 mg SUBCUT WEEKLY 05/18/18 [History Confirmed 05/18/18] Enalapril TAB* [Vasotec TAB*] 5 mg PO DAILY 05/18/18 [History Confirmed 05/18/18 ] Ferrous Sulfate TAB* 325 mg PO DAILY 05/18/18 [History Confirmed 05/18/18] Fexofenadine (NF) [Gisele 180 (NF)] 60 mg PO BID 05/18/18 [History Confirmed ] Furosemide TAB* [Lasix TAB*] 20 mg PO DAILY 05/18/18 [History Confirmed 05/18/18 ] Insulin GLARGINE(*) [Lantus(*)] 20 units SUBCUT DAILY 05/18/18 [History Confirmed 05/18/18] Insulin LISPRO* [HumaLOG*] 0 units SUBCUT DIRECTED 05/18/18 [History Confirmed 05/18/18] Multivitamins/Minerals TAB* [Theragran/minerals TAB*] 1 tab PO DAILY 05/18/18 [ History Confirmed 05/18/18] [place]-3 Fatty Acids/Fish Oil [Fish Oil 1,000 mg Capsule] 1 each PO DAILY [History Confirmed 05/18/18] Silver Sulfadiazine 1%* [SILVadine 1%*] 1 applic TOPICAL DAILY 05/18/18 [ History Confirmed 05/18/18] Spironolactone TAB* [Aldactone TAB*] 12.5 mg PO DAILY 05/18/18 [History Confirmed 05/18/18] metFORMIN* [Glucophage 1000 MG TAB *] 1,000 mg PO 0800,1700 05/18/18 [History Confirmed 05/18/18] PMH/Surg Hx/FS Hx/Imm Hx Previously Healthy: No Endocrine/Hematology History: Reports: Hx Diabetes - type 2 dm Cardiovascular History: Reports: Hx Congestive Heart Failure, Hx Hypercholesterolemia, Hx Pacemaker/ICD - external defib, Other Cardiovascular Problems/Disorders - SVT- ON ATENOLOL Denies: Hx Hypertension, Hx Myocardial Infarction History: Denies: Hx Renal Disease Sensory History: Reports: Hx Contacts or Glasses - GLASSES Denies: Hx Hearing Aid Opthamlomology History: Reports: Hx Contacts or Glasses - GLASSES Psychiatric History: Reports: Hx Depression - Surgical History Surgery Procedure, Year, and Place: TONSILLECTOMY 1971. I+D RIGHT FOOT SEVERAL YRS AGO Hx Anesthesia Reactions: No Infectious Disease History: Denies: Traveled Outside the [place] in Last 30 Days - Family History Known Family History: Positive: Hypertension, Diabetes Family History: [place] - Social History Alcohol Use: Rare Alcohol Amount: pt drinks once or twice a month Hx Substance Use: No Substance Use Type: Reports: None Hx Tobacco Use: No Smoking Status (MU): Never Smoked Tobacco Review of Systems Negative: Fever, Chills, Skin Diaphoresis Negative: Erythema Negative: Sore Throat Negative: Chest Pain Positive: Cough. Negative: Shortness Of Breath Negative: Abdominal Pain, Vomiting, Diarrhea, Nausea Negative: dysuria, hematuria Negative: Myalgia, Edema Positive: Other - ruptured blister on right great toe x3 weeks. Negative: Rash Neurological: Other - dizziness and lightheadedness only when he stands up All Other Systems Reviewed And Are Negative: Yes Physical Exam - Summary Physical Exam Summary: Constitutional: Well-developed, Well-nourished, Alert. (-) Distressed Skin: Warm, Dry. He has a wound on his right great toe HENT: Normocephalic; Atraumatic Eyes: Conjunctiva normal Neck: Musculoskeletal ROM normal neck. (-) JVD, (-) Stridor, (-) Tracheal deviation Cardio: Rhythm regular, rate normal, Heart sounds normal; Intact distal pulses; The pedal pulses are 2+ and symmetric. Radial pulses are 2+ and symmetric. (-) Murmur Pulmonary/Chest wall: Effort normal. (-) Respiratory distress, (-) Wheezes, (-) Rales Abd: Soft, (-), epigastric tenderness, (-) Distension, (-) Guarding, (-) Rebound Musculoskeletal: (-) Edema Lymph: (-) Cervical adenopathy Neuro: Alert, Oriented x3 Psych: Mood and affect Normal Triage Information Reviewed: Yes Vital Signs On Initial Exam: Initial Vitals Temp Pulse Resp BP Pulse Ox 96.7 F 81 20 92/72 100 05/18/18 11:24 05/18/18 11:24 05/18/18 11:24 05/18/18 11:24 05/18/18 11:24 Vital Signs Reviewed: Yes Diagnostics - Vital Signs Vital Signs Temp Pulse Resp BP Pulse Ox 05/18/18 12:38 79 17 90/43 97 05/18/18 12:25 100 05/18/18 12:00 80 18 99 05/18/18 11:33 19 05/18/18 11:24 96.7 F 81 20 92/72 100 - Laboratory Lab Results: Lab Results 05/18/18 05/18/18 05/18/18 Range/Units 11:56 11:56 11:56 WBC 4.6 (3.5-10.8) 10^3/ul RBC 4.69 (4.00-5.40) 10^6/ul Hgb 13.1 L (14.0-18.0) g/dl Hct 39 L (42-52) % MCV 83 (80-94) fL MCH 28 (27-31) pg MCHC 34 (31-36) g/dl RDW 16 H (10.5-15) % Plt Count 196 (150-450) 10^3/ul MPV 8.5 (7.4-10.4) um3 Neut % (Auto) 61.5 (38-83) % Lymph % (Auto) 27.8 (25-47) % [place] % (Auto) 8.3 H (0-7) % Eos % (Auto) 2.2 (0-6) % Baso % (Auto) 0.2 (0-2) % Absolute Neuts (auto) 2.8 (1.5-7.7) 10^3/ul Absolute Lymphs (auto) 1.3 (1.0-4.8) 10^3/ul Absolute Monos (auto) 0.4 (0-0.8) 10^3/ul Absolute Eos (auto) 0.1 (0-0.6) 10^3/ul Absolute Basos (auto) 0 (0-0.2) 10^3/ul Absolute Nucleated RBC 0 10^3/ul Nucleated RBC % 0.1 INR (Anticoag Therapy) 1.29 H (0.77-1.02) APTT 34.1 (26.0-36.3) seconds Sodium 137 (135-145) mmol/L Potassium 4.5 (3.5-5.0) mmol/L Chloride 103 (101-111) mmol/L Carbon Dioxide 28 (22-32) mmol/L Anion Gap 6 (2-11) mmol/L BUN 23 (6-24) mg/dL Creatinine 1.28 H (0.67-1.17) mg/dL Est GFR ( Amer) 70.3 (>60) Est GFR (Non-Af Amer) 58.1 (>60) BUN/Creatinine Ratio 18.0 (8-20) Glucose 250 H (70-100) mg/dL Lactic Acid (0.5-2.0) mmol/L Calcium 9.3 (8.6-10.3) mg/dL Total Bilirubin 0.40 (0.2-1.0) mg/dL AST 16 (13-39) U/L ALT 19 (7-52) U/L Alkaline Phosphatase 47 (34-104) U/L Troponin I 0.03 (<0.04) ng/mL Total Protein 7.0 (6.4-8.9) g/dL Albumin 3.9 (3.2-5.2) g/dL Globulin 3.1 (2-4) g/dL Albumin/Globulin Ratio 1.3 (1-3) /04/30 Range/Units 11:56 WBC (3.5-10.8) 10^3/ul RBC (4.00-5.40) 10^6/ul Hgb (14.0-18.0) g/dl Hct (42-52) % MCV (80-94) fL MCH (27-31) pg MCHC (31-36) g/dl RDW (10.5-15) % Plt Count (150-450) 10^3/ul MPV (7.4-10.4) um3 Neut % (Auto) (38-83) % Lymph % (Auto) (25-47) % [place] % (Auto) (0-7) % Eos % (Auto) (0-6) % Baso % (Auto) (0-2) % Absolute Neuts (auto) (1.5-7.7) 10^3/ul Absolute Lymphs (auto) (1.0-4.8) 10^3/ul Absolute Monos (auto) (0-0.8) 10^3/ul Absolute Eos (auto) (0-0.6) 10^3/ul Absolute Basos (auto) (0-0.2) 10^3/ul Absolute Nucleated RBC 10^3/ul Nucleated RBC % INR (Anticoag Therapy) (0.77-1.02) APTT (26.0-36.3) seconds Sodium (135-145) mmol/L Potassium (3.5-5.0) mmol/L Chloride (101-111) mmol/L Carbon Dioxide (22-32) mmol/L Anion Gap (2-11) mmol/L BUN (6-24) mg/dL Creatinine (0.67-1.17) mg/dL Est GFR ( Amer) (>60) Est GFR (Non-Af Amer) (>60) BUN/Creatinine Ratio (8-20) Glucose (70-100) mg/dL Lactic Acid 2.1 H* (0.5-2.0) mmol/L Calcium (8.6-10.3) mg/dL Total Bilirubin (0.2-1.0) mg/dL AST (13-39) U/L ALT (7-52) U/L Alkaline Phosphatase (34-104) U/L Troponin I (<0.04) ng/mL Total Protein (6.4-8.9) g/dL Albumin (3.2-5.2) g/dL Globulin (2-4) g/dL Albumin/Globulin Ratio (1-3) Result Diagrams: 05/18/18 11:56 05/18/18 11:56 Lab Statement: Any lab studies that have been ordered have been reviewed, and results considered in the medical decision making process. - Radiology CXR Radiology Interpretation Completed By: Radiologist - Stigmata of obstructive lung disease. No acute pulmonary or cardiac process evident. ED physician has reviewed this report. Complex Multi-Symp Course/Dx Course Of Treatment: 58 year old M complains of hypotension since 10:00 today. Patient hydrated with IV fluids. No acute pulmonary or cardiac process evident in CXR. Spoke with Dr. Perez, hospitalist, who agrees to admit patient. Patient will be admitted to [facility]. - Diagnoses Provider Diagnoses: Hypotension, Congestive heart failure (CHF), Hypovolemia - Physician Notifications Discussed Care Of Patient With: Israel Perez Time Discussed With Above Provider: 15:01 Instructed by Provider To: Other - Dr. Perez, hospitalist, agrees to admit patient - Critical Care Time Critical Care Time: 30-74 min - 45 minutes Discharge - Sign-Out/Discharge Documenting (check all that apply): Discharge/Admit/Transfer - Admit - Discharge Plan Condition: Good Disposition: ADMITTED TO [facility] The documentation as recorded by the carmen, Carolina Hassan SCRIBE accurately reflects the service I personally performed and the decisions made by Heena kelley Jerry, MD.
[2018-05-22 07:37] LABS: EGFR Non-African American 79.1 (>60)
[2018-05-22] MEDS: Insulin LISPRO* 1 UNITS UNIT SUBCUT SCH ×3 (08:15→16:40)
[2018-05-22] MEDS: DULoxetine DR CAP* 60 MG CAP.DR PO SCH ×2 (08:55→21:27)
[2018-05-22] MEDS: Apixaban* 5 MG TAB PO SCH ×2 (08:56→21:26)
[2018-05-22] MEDS: Ferrous Sulfate TAB* 325 MG PO SCH (08:56)
[2018-05-22] MEDS: Aspirin 81 mg CHEW TAB* 81 MG TAB.CHEW PO SCH (08:56)
[2018-05-22] MEDS: Amiodarone TAB* 200 MG PO SCH (08:56)
[2018-05-22] MEDS: Atorvastatin* 20 MG TAB PO SCH (08:56)
[2018-05-22] MEDS: Desipramine TAB* 50 MG PO SCH ×3 (08:56→21:27)
[2018-05-22] MEDS ORDERED: Bisoprolol TAB* 5 MG PO SCH (09:00)
[2018-05-22] MEDS: Insulin GLARGINE(*) 1 UNITS UNIT SUBCUT SCH (09:03)
[2018-05-22] MEDS ORDERED: NS 0.9% 250 ML* 250 ML IV ONE ×2 (09:12→14:39)
[2018-05-22] MEDS ORDERED: Bisoprolol TAB* 5 MG PO ONE (11:44)
--- NOTE | 2018-05-22 14:45 | PN ---
Subjective Date of Service: 05/22/18 Interval History: Pt continued to be orthostatic despite IVF bolus today. Family History: Unchanged from Admission Social History: Unchanged from Admission Past Medical History: Unchanged from Admission Objective Active Medications: Acetaminophen (Tylenol Tab*) 650 mg PO Q4H PRN PRN Reason: FEVER/PAIN Amiodarone HCl (Cordarone Tab*) 100 mg PO DAILY [facility] Apixaban (Eliquis*) 5 mg PO BID [facility] Last Admin: 05/22/18 08:56 Dose: 5 mg Aspirin (Aspirin 81 Mg Chew Tab*) 81 mg PO DAILY [facility] Last Admin: 05/22/18 08:56 Dose: 81 mg Atorvastatin Calcium (Lipitor*) 20 mg PO DAILY [facility] Last Admin: 05/22/18 08:56 Dose: 20 mg Desipramine HCl (Norpramin Tab*) 50 mg PO TID [facility] Last Admin: 05/22/18 13:33 Dose: 50 mg Dextrose (D50w Syringe 50 Ml*) 12.5 gm IV PUSH .FOR FS < 60 - SS PRN PRN Reason: FS < 60 Duloxetine HCl (Cymbalta Cap*) 60 mg PO BID [facility] Last Admin: 05/22/18 08:55 Dose: 60 mg Ferrous Sulfate (Ferrous Sulfate Tab*) 325 mg PO DAILY [facility] Last Admin: 05/22/18 08:56 Dose: 325 mg Sodium Chloride (Ns 0.9% 250 Ml*) 250 mls @ 0 mls/hr IV ONCE ONE Stop: 05/22/18 14:40 Insulin Glargine (Lantus(*)) 20 units SUBCUT DAILY [facility] Last Admin: 05/22/18 09:03 Dose: 20 units Insulin Human Lispro (Humalog*) 0 units SUBCUT AC [facility]; Protocol Last Admin: 05/22/18 12:28 Dose: 6 unit Ondansetron HCl (Zofran Inj*) 4 mg IV Q6H PRN PRN Reason: NAUSEA Vital Signs - 8 hr 05/22/18 05/22/18 05/22/18 07:10 08:00 08:27 Temperature 97.5 F Pulse Rate 80 80 Respiratory 16 16 16 Rate Blood Pressure 135/81 101/70 (mmHg) O2 Sat by Pulse 98 100 97 Oximetry 05/22/18 05/22/18 05/22/18 08:30 08:32 08:48 Temperature Pulse Rate 89 102 89 Respiratory 16 16 Rate Blood Pressure 92/57 63/41 92/57 (mmHg) O2 Sat by Pulse 99 100 Oximetry 05/22/18 05/22/18 05/22/18 08:49 11:02 13:02 Temperature 97.8 F Pulse Rate 102 79 95 Respiratory 16 Rate Blood Pressure 63/41 106/62 77/48 (mmHg) O2 Sat by Pulse 99 Oximetry Oxygen Devices in Use Now: None Appearance: 58 yo M in nAD, aAOx3 Eyes: No Scleral Icterus, PERRLA Ears/Nose/Mouth/Throat: NL Teeth, Lips, Gums, Mucous Membranes Moist Neck: NL Appearance and Movements; NL JVP, Trachea Midline Respiratory: Symmetrical Chest Expansion and Respiratory Effort, Clear to Auscultation Cardiovascular: NL Sounds; No Murmurs; No JVD Abdominal: NL Sounds; No Tenderness; No Distention Lymphatic: No Cervical Adenopathy Extremities: No Edema, No Clubbing, Cyanosis Skin: No Rash or Ulcers, No Nodules or Sclerosis Neurological: Alert and Oriented x 3, NL Muscle Strength and Tone Result Diagrams: 05/21/18 04:37 05/22/18 06:56 Additional Lab and Data: Lab Results 05/18/18 05/18/18 05/18/18 Range/Units 11:56 11:56 11:56 WBC 4.6 (3.5-10.8) 10^3/ul RBC 4.69 (4.00-5.40) 10^6/ul Hgb 13.1 L (14.0-18.0) g/dl Hct 39 L (42-52) % MCV 83 (80-94) fL MCH 28 (27-31) pg MCHC 34 (31-36) g/dl RDW 16 H (10.5-15) % Plt Count 196 (150-450) 10^3/ul MPV 8.5 (7.4-10.4) um3 Neut % (Auto) 61.5 (38-83) % Lymph % (Auto) 27.8 (25-47) % [place] % (Auto) 8.3 H (0-7) % Eos % (Auto) 2.2 (0-6) % Baso % (Auto) 0.2 (0-2) % Absolute Neuts (auto) 2.8 (1.5-7.7) 10^3/ul Absolute Lymphs (auto) 1.3 (1.0-4.8) 10^3/ul Absolute Monos (auto) 0.4 (0-0.8) 10^3/ul Absolute Eos (auto) 0.1 (0-0.6) 10^3/ul Absolute Basos (auto) 0 (0-0.2) 10^3/ul Absolute Nucleated RBC 0 10^3/ul Nucleated RBC % 0.1 INR (Anticoag Therapy) 1.29 H (0.77-1.02) APTT 34.1 (26.0-36.3) seconds Sodium 137 (135-145) mmol/L Potassium 4.5 (3.5-5.0) mmol/L Chloride 103 (101-111) mmol/L Carbon Dioxide 28 (22-32) mmol/L Anion Gap 6 (2-11) mmol/L BUN 23 (6-24) mg/dL Creatinine 1.28 H (0.67-1.17) mg/dL Est GFR ( Amer) 70.3 (>60) Est GFR (Non-Af Amer) 58.1 (>60) BUN/Creatinine Ratio 18.0 (8-20) Glucose 250 H (70-100) mg/dL Lactic Acid (0.5-2.0) mmol/L Calcium 9.3 (8.6-10.3) mg/dL Total Bilirubin 0.40 (0.2-1.0) mg/dL AST 16 (13-39) U/L ALT 19 (7-52) U/L Alkaline Phosphatase 47 (34-104) U/L Troponin I 0.03 (<0.04) ng/mL Total Protein 7.0 (6.4-8.9) g/dL Albumin 3.9 (3.2-5.2) g/dL Globulin 3.1 (2-4) g/dL Albumin/Globulin Ratio 1.3 (1-3) 05/18/18 Range/Units 11:56 WBC (3.5-10.8) 10^3/ul RBC (4.00-5.40) 10^6/ul Hgb (14.0-18.0) g/dl Hct (42-52) % MCV (80-94) fL MCH (27-31) pg MCHC (31-36) g/dl RDW (10.5-15) % Plt Count (150-450) 10^3/ul MPV (7.4-10.4) um3 Neut % (Auto) (38-83) % Lymph % (Auto) (25-47) % [place] % (Auto) (0-7) % Eos % (Auto) (0-6) % Baso % (Auto) (0-2) % Absolute Neuts (auto) (1.5-7.7) 10^3/ul Absolute Lymphs (auto) (1.0-4.8) 10^3/ul Absolute Monos (auto) (0-0.8) 10^3/ul Absolute Eos (auto) (0-0.6) 10^3/ul Absolute Basos (auto) (0-0.2) 10^3/ul Absolute Nucleated RBC 10^3/ul Nucleated RBC % INR (Anticoag Therapy) (0.77-1.02) APTT (26.0-36.3) seconds Sodium (135-145) mmol/L Potassium (3.5-5.0) mmol/L Chloride (101-111) mmol/L Carbon Dioxide (22-32) mmol/L Anion Gap (2-11) mmol/L BUN (6-24) mg/dL Creatinine (0.67-1.17) mg/dL Est GFR ( Amer) (>60) Est GFR (Non-Af Amer) (>60) BUN/Creatinine Ratio (8-20) Glucose (70-100) mg/dL Lactic Acid 2.1 H* (0.5-2.0) mmol/L Calcium (8.6-10.3) mg/dL Total Bilirubin (0.2-1.0) mg/dL AST (13-39) U/L ALT (7-52) U/L Alkaline Phosphatase (34-104) U/L Troponin I (<0.04) ng/mL Total Protein (6.4-8.9) g/dL Albumin (3.2-5.2) g/dL Globulin (2-4) g/dL Albumin/Globulin Ratio (1-3) Microbiology and Other Data: Microbiology 05/18/18 11:56 Aerobic Blood Culture - Preliminary Blood Venous No Growth Day 3 Anaerobic Blood Culture - Preliminary No Growth Day 3 05/18/18 11:56 Aerobic Blood Culture - Preliminary Blood Venous No Growth Day 3 Anaerobic Blood Culture - Preliminary No Growth Day 3 05/18/18 21:35 Urine Culture - Final Urine Assess/Plan/Problems-Billing Assessment: Mr. Low is a 58yo M with PMH of type 2 DM, SVT (atypical atrial flutter), depression, non ischemic CMP with EF 25-30%, HLD, EDIN, who presented to ED referred from wound clinic, with c/o dizziness, found to have orthostatic hypotension. - Patient Problems (1) Orthostatic hypotension Comment: pt's wood box maker at [facility] is Dr. Joe's - Diuretics on hold for now, pt still orthostatic. Pt was given 500 ml IVF on 05/21/18, and 250 ml total today. Will order another 250 ml bolus -cont lower bisoprolol's dose 2.5 mg. (2) Atrial flutter Comment: - Continue bisoprolol and apixaban. in NSR Amidodarone was decreased to 100 mg today. D/w Dr. Lozano (3) Depression Comment: - Continue desipramine and duloxetine. (4) Diabetes Comment: - Continue Lispro SS. (5) Non-ischemic cardiomyopathy Comment: - Stable at this time. - Continue lower dose bisoprolol - Continue Amiodarone (decreased from 200 to 100 mg today). (6) Hyperlipidemia Comment: - Continue atorvastatin. (7) Systolic CHF Comment: in 12/2017 diagnosed severe CM with EF 25% and systolic congestive heart failure. Cardiac cath without significant cornary artery disease. now pt is slightly hypovelemic (8) DVT prophylaxis SNOMED Code(s): 746210925 Comment: - Apixaban. Status and Disposition: Inpatient. Anticipate d/c when orthostasis improved.
[2018-05-23] MEDS: Insulin LISPRO* 1 UNITS UNIT SUBCUT SCH ×3 (08:18→17:25)
[2018-05-23] MEDS: Insulin GLARGINE(*) 1 UNITS UNIT SUBCUT SCH (08:34)
[2018-05-23] MEDS: Apixaban* 5 MG TAB PO SCH (08:35)
[2018-05-23] MEDS: Desipramine TAB* 50 MG PO SCH ×2 (08:35→13:27)
[2018-05-23] MEDS: Atorvastatin* 20 MG TAB PO SCH (08:35)
[2018-05-23] MEDS: Aspirin 81 mg CHEW TAB* 81 MG TAB.CHEW PO SCH (08:35)
[2018-05-23] MEDS: DULoxetine DR CAP* 60 MG CAP.DR PO SCH (08:35)
[2018-05-23] MEDS: Ferrous Sulfate TAB* 325 MG PO SCH (08:36)
[2018-05-23] MEDS ORDERED: Amiodarone TAB* 200 MG PO SCH (09:00)
[2018-05-23] MEDS ORDERED: Midodrine (NF) 5 MG TAB PO ONE (11:00)
--- NOTE | 2018-05-23 14:01 | PN ---
Subjective Date of Service: 05/23/18 - cc: dizzy standing Interval History: Despite holding medications and fluid replacement, the patient continues to experience symptomatic hypotension. Medications Active Medications: Acetaminophen (Tylenol Tab*) 650 mg PO Q4H PRN PRN Reason: FEVER/PAIN Amiodarone HCl (Cordarone Tab*) 100 mg PO DAILY [facility] Last Admin: 05/23/18 08:35 Dose: 100 mg Apixaban (Eliquis*) 5 mg PO BID [facility] Last Admin: 05/23/18 08:35 Dose: 5 mg Aspirin (Aspirin 81 Mg Chew Tab*) 81 mg PO DAILY [facility] Last Admin: 05/23/18 08:35 Dose: 81 mg Atorvastatin Calcium (Lipitor*) 20 mg PO DAILY [facility] Last Admin: 05/23/18 08:35 Dose: 20 mg Desipramine HCl (Norpramin Tab*) 50 mg PO TID [facility] Last Admin: 05/23/18 13:27 Dose: 50 mg Dextrose (D50w Syringe 50 Ml*) 12.5 gm IV PUSH .FOR FS < 60 - SS PRN PRN Reason: FS < 60 Duloxetine HCl (Cymbalta Cap*) 60 mg PO BID [facility] Last Admin: 05/23/18 08:35 Dose: 60 mg Ferrous Sulfate (Ferrous Sulfate Tab*) 325 mg PO DAILY [facility] Last Admin: 05/23/18 08:36 Dose: 325 mg Insulin Glargine (Lantus(*)) 20 units SUBCUT DAILY [facility] Last Admin: 05/23/18 08:34 Dose: 20 units Insulin Human Lispro (Humalog*) 0 units SUBCUT AC [facility]; Protocol Last Admin: 05/23/18 11:49 Dose: Not Given Ondansetron HCl (Zofran Inj*) 4 mg IV Q6H PRN PRN Reason: NAUSEA Objective Vital Signs: Temp Pulse Resp BP Pulse Ox 97.7 F 86 16 100/74 100 05/23/18 11:42 05/23/18 11:42 05/23/18 11:42 05/23/18 11:42 05/23/18 11:42 Vital Signs - 12 hr Temp Pulse Resp BP Pulse Ox 05/23/18 16:02 93 90/56 05/23/18 15:00 97.5 F 94 16 103/67 100 05/23/18 11:42 97.7 F 86 16 100/74 100 05/23/18 09:49 93 71/54 05/23/18 09:47 93 16 71/54 100 05/23/18 08:00 16 98 05/23/18 07:23 97.4 F 77 16 101/68 98 Laboratory Results: 05/21/18 04:37 05/22/18 06:56 INR (Anticoag Therapy) 1.16 (0.77-1.02) H 05/19/18 06:15 APTT 34.1 seconds (26.0-36.3) 05/18/18 11:56 Total Bilirubin 0.40 mg/dL (0.2-1.0) 05/18/18 11:56 AST 16 U/L (13-39) 05/18/18 11:56 ALT 19 U/L (7-52) 05/18/18 11:56 Alkaline Phosphatase 47 U/L (34-104) 05/18/18 11:56 B-Natriuretic Peptide 129 pg/mL (-100) H 05/20/18 15:16 Total Protein 7.0 g/dL (6.4-8.9) 05/18/18 11:56 Albumin 3.9 g/dL (3.2-5.2) 05/18/18 11:56 Globulin 3.1 g/dL (2-4) 05/18/18 11:56 Albumin/Globulin Ratio 1.3 (1-3) 05/18/18 11:56 TSH 1.10 mcIU/mL (0.34-5.60) 05/18/18 11:49 05/18/18 11:56 Troponin I 0.03 Diagnostic Imaging: Echo 05/21/18: EF 25-30%, normal RV function, mild dilatation, good valve function. Assessment/Plan 58 yo male with severe non ischemic CM, admitted with symptomatic hypotension in hot hot weather and with recent advancement of CHF regimen including diuretics and beta nga. Persistent OS hypotension and dizziness despite hydration and pulling way back on medications. I discussed the case with Dr Reno, covering for Dr Barboza. He agrees that midodrine (as considered by Dr Carson) is a good option- start 2.5 mg TID. I additionally recommend thigh high compression stockings (the latter if OK with wound clinic). Dr Rowdy recommends close follow up at [facility] as well. These recommendations discussed in person with Dr Carson.
[2018-05-23 16:04] VITALS: BP 121/72
--- NOTE | 2018-05-24 09:33 | DS ---
CC: Dr. Pacheco; Dr. Ingram; Dr. Beach; Dr. Lozano; Dr. Barboza, [facility], Cardiology Department, [place], [place] DISCHARGE SUMMARY: DATE OF ADMISSION: 05/18/18 DATE OF DISCHARGE: 05/23/18 PRIMARY CARE PHYSICIAN: Dr. Pacheco. DISCHARGE DIAGNOSES: 1. Orthostatic hypotension and orthostatic dizziness due to over diuresis. 2. Increased creatinine due to over diuresis. SECONDARY DIAGNOSES: 1. History of nonischemic cardiomyopathy with EF of 25%. 2. History of diabetes type 2. 3. History of diabetic foot ulcer in the right first toe. 4. Dyslipidemia. 5. Depression. 6. History of supraventricular tachycardia. 7. Obstructive sleep apnea. DISCHARGE MEDICATIONS: Include: 1. Eliquis 5 mg daily. 2. Aspirin 81 mg daily. 3. Lipitor 20 mg daily. 4. Vitamin D3 of 1000 units daily. 5. Desipramine 50 mg 3 times a day. 6. Trulicity 0.75 mg subcutaneously weekly. 7. Ferrous sulfate 325 mg daily. 8. Cymbalta 60 mg 2 times a day. 9. Gisele 60 mg b.i.d. 10. Insulin glargine 20 units daily. 11. Insulin Humalog sliding scale. 12. Metformin 1000 mg twice a day. 13. Multivitamin 1 tablet daily. 14. [place]-3 fatty acid 1 capsule daily. 15. Silvadene dressing apply to right toe ulcer, change daily. 16. Amiodarone dose lowered from 200 mg to 100 mg daily. 17. Zebeta, dose lowered to 2.5 mg daily. 18. Midodrine, which is a new prescription, 2.5 mg b.i.d. 19. Aldactone 12.5 mg every other day, to be started once okay by Dr. Pacheco in 4 to 7 days. The patient is instructed to weigh himself daily. His weight at discharge was 260 pounds and 4.8 ounces. CONSULTATIONS DURING THE HOSPITAL STAY: Included Dr. Beach, Dr. Lozano from Cardiology. LABORATORY DATA AND STUDIES PERFORMED DURING THE HOSPITAL STAY: Included: On 05/22/18, sodium of 139, potassium 4.1, chloride 106, carbon dioxide 26, BUN 15 , creatinine 0.98. TSH was 1.1, free T4 of 1.18, total T3 was 58. At admission , the patient's creatinine was 1.28. Transthoracic echocardiogram obtained on 05/20/18 showed EF of 25% to 30% with mild LVH and diastolic dysfunction. HOSPITALIZATION COURSE: Mejia Low is a 58-year-old male with history of nonischemic cardiomyopathy with EF of 25% diagnosed in December 2017. The patient is also being evaluated at [facility]. He was seen for followup at the [facility] and started on Aldactone. He also was on Lasix 20 mg daily on occasion and would take double the dose according to his weight increase. He was also on Aldactone. He was noted to have increased creatinine as outpatient. He also presented to the hospital complaining of dizziness when standing up. He had orthostatic hypotension on presentation that continued for several days despite discontinuation of most of the patient's medications including all the diuretics. During his hospital stay, his Zebeta was lowered from 10 mg daily to 2.5 mg daily. His amiodarone was lowered from 200 mg daily to 100 mg daily. His Vasotec at 5 mg daily as well as Lasix 20 mg daily as well as Aldactone 12.5 mg as well as hydrochlorothiazide were discontinued during his hospital stay. He also received a total of 1000 mL of intravenous hydration. Despite all those measures, he continued to be hypotensive with systolic pressures dropping from 110 when sitting down to 60 when standing up and complaining of dizziness. At that point, the patient was started on midodrine on the day of discharge with good results. His systolic pressures did drop from 109/72 when sitting to 90/56 when standing but the patient was not orthostatic any more and complaining of no dizziness. At this point, I discussed the case both with Dr. Lozano as well as Dr. Beach. It is difficult to clin nurse what diuretics and when he will need to restart the diuretics. At this point, his weight had been stable and he definitely is not a candidate for diuresis right now. Nevertheless, it is plausible that the patient should be restarted on at least Aldactone 12.5 mg every other day once reevaluated by his primary care provider next week. Dr. Beach discussed treatment with midodrine with who agreed with the idea and the patient is going to be also discharged with midodrine at 2.5 mg twice a day. The patient also was placed on compression stockings. He does have a diabetic foot ulcer on the right great toe and he is scheduled for arterial Dopplers of bilateral lower extremities to evaluate ABIs. Nevertheless, his peripheral pulses are good and I asked the patient to continue compression stockings as tolerated. PHYSICAL EXAMINATION AT DISCHARGE: Blood pressure of 109/72, heart rate of 86 and regular, respiratory rate 16, oxygen saturation 100% on room air, temperature 97.7. General: The patient is a very pleasant 58-year-old male who is in no acute distress. Alert, awake, oriented x3. HEENT: Head atraumatic, normocephalic. Eyes: Pupils are equal, reactive to light and accommodation. Oropharynx clear. Mucosa moist. Neck: Supple. No JVD, no bruits bilaterally. Cardiovascular: Regular rate and rhythm. No murmur. Respiratory: Clear to auscultation bilaterally. Abdomen: Soft, nontender. Bowel sounds are present in all 4 quadrants. Extremities: There is no edema. Pulses are +2 bilaterally. There is no clubbing or cyanosis. On evaluation of the skin, the patient has right first toe what appears to be diabetic foot ulcer on the dorsal aspect of the toe of approximately 2 cm in diameter crater like with the bottom covered with slough. There was no evidence of infection. Please note that this is a short summary of the patient's hospital stay. Please refer to further medical records for details. TIME SPENT: Approximately 50 minutes were spent on the patient's discharge. [id number]/CPS #: [id number] MTDD
== END 2018-05-23 18:15 | disposition home or self-care (01) | DRG 312 ==
LOC: ED 11:21 → MEDTELE 15:42 → OBSVTOIN 05-19 16:17
PROVIDERS: ADMIT Internal Medicine; ATTEND Internal Medicine
DX: I95.2 Hypotension due to drugs (principal); I42.8 Other cardiomyopathies; I48.4 Atypical atrial flutter; I50.22 Chronic systolic (congestive) heart failure; T50.1X5A Adverse effect of loop [high-ceiling] diuretics, initial encounter; Y92.9 Unspecified place or not applicable; T50.0X5A Adverse effect of mineralocorticoids and their antagonists, initial encounter; R94.4 Abnormal results of kidney function studies; E78.5 Hyperlipidemia, unspecified; G47.33 Obstructive sleep apnea (adult) (pediatric); F32.9 Major depressive disorder, single episode, unspecified; Z79.01 Long term (current) use of anticoagulants; Z79.82 Long term (current) use of aspirin; Z79.4 Long term (current) use of insulin; R42 Dizziness and giddiness; E11.621 Type 2 diabetes mellitus with foot ulcer; L97.519 Non-pressure chronic ulcer of other part of right foot with unspecified severity; Z91.013 Allergy to seafood; Z83.3 Family history of diabetes mellitus; Z80.1 Family history of malignant neoplasm of trachea, bronchus and lung; Z95.810 Presence of automatic (implantable) cardiac defibrillator; Z82.49 Family history of ischemic heart disease and other diseases of the circulatory system; I11.0 Hypertensive heart disease with heart failure; I25.10 Atherosclerotic heart disease of native coronary artery without angina pectoris
CPT/HCPCS: 36415; 71045; 80048; 80053; 81003; 81015; 82565; 83605; 83880; 84439; 84443; 84479; 84484; 84520; 85025; 85379; 85610; 85730; 86140; 87040; 87086; 93005; 93306; 99284; A9270-GY; G0378

== ENCOUNTER → 2019-04-09 18:00 | Emergency (ER) | payer OTHER ==
--- OUTSIDE RECORDS SUMMARY | 2019-04-09 18:17 | XMS REPORT | Continuity of Care Document ---
:1960 External Reference #:[id number] Author Name Dillon Kelsey Care Team Providers Name Role Phone Bismark Pacheco MD Primary Care Physician Unavailable Payers Date Identification Numbers Payment Provider Subscriber Policy Number: [id number] [facility] Paty De Santiago PayID: [id number] [address] [place] [address] Expires: 2015 Policy Number: [id number] [facility] Paty De Santiago Group Number: [id number] [address] PayID: [id number] [place] [address] Expires: 2013 Policy Number: [id number] [facility] Thee Low Group Number: [id number] [address] PayID: [id number] [place] [address] Problems Active Problems Provider Date Drug-induced hypotension Cinthya Carson M.D. Onset: 05/23/2018 Long-term current use of insulin Cinthya Carson M.D. Onset: 05/23/2018 Ulcer of foot Cinthya Carson M.D. Onset: 05/23/2018 Type 2 diabetes mellitus with ulcer Cinthya Carson M.D. Onset: 05/23/2018 Cardiomyopathy, unspecified Cinthya Carson M.D. 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 90tabs Kennedy D. 02/16/2018 200mg Brand, M.D. Tablets Eliquis 1 by mouth twice a 180tabs I42.9 Kennedy D. 02/14/2018 5mg Tablets day Brand, M.D. Vitamin D3 High 1 by mouth every day Unknown Potency 1000Unit Capsules Lisinopril 1 tablet by mouth Unknown 2.5mg daily Tablets Bisoprolol Fumarate take 1/2 tablet (2.5 45tabs Kennedy D. mg) by mouth twice a Brand, M.D. 5mg Tablets daily Gisele Allergy 1 by mouth every day Unknown 180mg Tablets Trulicity inject subcutaneously Unknown 1.5mg/0.5ML weekly Solution Pen-Inject Atorvastatin Calcium take 1 tablet by Unknown mouth every evening 20mg Tablets Ferrous Sulfate take 1 tablet by Unknown mouth once daily( new 325(65Fe) mg Tablets medication ) Fish Oil Burp-Less 1 cap po daily 60caps Unknown 1000mg Capsules Multivitamins 1 by mouth every day 30caps Unknown Capsules Aspirin Ec Lo-Dose 1 tablet daily. 90tabs Unknown 81mg Tablets Duloxetine HCL 1 tab po bid Breiman, 60mg MD [place] Caps Part Novolog Flexpen sliding scale Breiman, MD [place] 100Unit/ML Sopn Metformin HCL 1 tab po bid Breiman, 1000mg MD [place] Tablets Desipramine HCL 1 tab po tid Breiman, 50mg MD [place] Tablets Lantus Solostar 40 units sq daily Breiman, MD [place] 100Unit/ML Sopn History Medications Amoxicillin/Clavulanate 1 tab by mouth 60tabs E11.621 Aguilar Vogt 2017 - Potassium two times per [facility] [place]2018 500-125mg Tablets day M.DLucie Ceftriaxone Sodium 2 grams daily Aguilar Vogt 06/18/2018 - 2gm Solution Rec iv x 4 wks [place] [facility] [place] 07[place]30/2018 [facility] [place] M.DLucie Furosemide 1 by mouth 30tabs Victoriano Huang 05/28/2018 - 20mg Tablets every day as Riana Lozano 11/27/2018 needed for weight gain .(On Hold since 05/23/18) Enalapril Maleate 1/2 tablet by 90tabs I42.9 Kennedy Vogt 01/10/2018 - 5mg Tablets mouth every day Riana Ingram 06/05/2018 Coreg 1 by mouth 60tabs I42.9 Kennedy Vogt 01/10/2018 - 3.125mg Tablets twice a day Riana Ingram 05/28/2018 [place] 1-2 tab by 60tabs Efraín Boyd 08/07/2014 - 5-325mg Tablets mouth every 4-6 M.D. 01/09/2018 hours as needed pain Metronidazole take 1 tablet Unknown - 500mg Tablets by mouth three 07/10/2018 times a day Cephalexin take 1 capsule Unknown - 500mg Capsules by mouth three 06/18/2018 times a day Losartan Potassium 1 by mouth Unknown - 50mg Tablets every day 05/29/2018 Midodrine HCL 1 tab po twice Unknown - 2.5mg Tablets daily 06/12/2018 Metoprolol Tartrate 1 by mouth Unknown - 25mg Tablets twice a day 05/29/2018 Vitamin D3 1 by mouth Unknown - 1000Unit Capsules every day 06/05/2018 Spironolactone take 1/2 tablet Unknown - 25mg Tablets by mouth once 11/27/2018 every other day( [place] Hold since [place]23[place] [facility] [place] Metoprolol Tartrate take 1 tablet I42.9 Unknown - 25mg Tablets by mouth twice 01/10/2018 a day ( New Medication ) Captopril take 1/2 tablet I42.9 Unknown - 12.5mg Tablets by mouth three 01/10/2018 times a day ( new medication ) Vitamin D by mouth 30tabs Unknown - 1000Unit Tablets everyday (not 01/09/2018 sure if taking) Urea 40% [place], - Cream Angel, DPM 05/13/2014 Axiron Larissa, - 30mg/Act Solution Francheska, 05/13/2014 DIRECTOR AUTO Atenolol 1 tab po daily Breiman, - 50mg Tablets MD [place] 01/09/2018 Vital Signs Date Vital Result Comment 04/09/2019 11:04am Height 76 inches 6'4" Weight 269.00 lb Heart Rate 120 /min reg BP Systolic Sitting 128 mmHg BP Diastolic Sitting 84 mmHg Respiratory Rate 18 /min Body Temperature 98.2 F O2 % BldC Oximetry 98 % BMI (Body Mass Index) 32.7 kg/m2 02/06/2019 7:52am Height 76 inches 6'4" Weight 275.00 lb Heart Rate 88 /min reg BP Systolic Sitting 115 mmHg Lue reg cuff BP Diastolic Sitting 70 mmHg Lue reg cuff BP Systolic Standing 105 mmHg Lue reg cuff BP Diastolic Standing 65 mmHg Lue reg cuff Respiratory Rate 16 /min BMI (Body Mass Index) 33.5 kg/m2 Ejection Fraction 46% Lvef 12/31/18 echo/bubble study [facility] 01/08/2019 11:03am Height 76 inches 6'4" Weight 275.00 lb Heart Rate 94 /min BP Systolic Sitting 128 mmHg BP Diastolic Sitting 88 mmHg Pain Level 14 BMI (Body Mass Index) 33.5 kg/m2 11/28/2018 10:44am Height 76 inches 6'4" Weight 270.00 lb Heart Rate 102 /min BP Systolic Sitting 82 mmHg Lue reg cuff DB- Ccma BP Diastolic Sitting 60 mmHg Lue reg cuff DB- Ccma BP Systolic Recheck 90 mmHg Lue reg cuff BRITTANI -RN BP Diastolic Recheck 60 mmHg Lue reg cuff BRITTANI -RN BMI (Body Mass Index) 32.9 kg/m2 Ejection Fraction 33% cho 08/27/18 11/26/2018 10:50am Height 76 inches 6'4" Weight 270.19 lb Heart Rate 96 /min BP Systolic Sitting 140 mmHg Lue large cuff BP Diastolic Sitting 92 mmHg Lue large cuff Respiratory Rate 16 /min O2 % BldC Oximetry 98 % BMI (Body Mass Index) 32.9 kg/m2 10/23/2018 9:44am Height 76 inches 6'4" Weight 279.00 lb Heart Rate 84 /min BP Systolic Sitting 136 mmHg BP Diastolic Sitting 84 mmHg Respiratory Rate 14 /min Body Temperature 98.0 F BMI (Body Mass Index) 34.0 kg/m2 09/13/2018 1:45pm Height 76 inches 6'4" Weight 275.00 lb Heart Rate 106 /min BP Systolic Sitting 116 mmHg Lue large cuff BP Diastolic Sitting 76 mmHg Lue large cuff Respiratory Rate 12 /min O2 % BldC Oximetry 97 % BMI (Body Mass Index) 33.5 kg/m2 Neck Circumference in inches 17 09/05/2018 1:30pm Height 76 inches 6'4" Weight 275.00 lb w/ shoes Heart Rate 92 /min BP Systolic Sitting 104 mmHg Lue Large Cuff BP Diastolic Sitting 72 mmHg Lue Large Cuff BP Systolic Standing 102 mmHg Lur Large Cuff BP Diastolic Standing 70 mmHg Lur Large Cuff BMI (Body Mass Index) 33.5 kg/m2 Ejection Fraction 33% ECHO 08/27/18 08/21/2018 11:00am Height 76 inches 6'4" Weight 273.50 lb Heart Rate 92 /min BP Systolic Sitting 110 mmHg BP Diastolic Sitting 72 mmHg Respiratory Rate 14 /min Body Temperature 97.1 F BMI (Body Mass Index) 33.3 kg/m2 07/31/2018 10:58am Height 76 inches 6'4" Weight 271.50 lb Heart Rate 86 /min BP Systolic Sitting 132 mmHg BP Diastolic Sitting 86 mmHg Respiratory Rate 14 /min Body Temperature 97.5 F BMI (Body Mass Index) 33.0 kg/m2 07/10/2018 9:16am Height 76 inches 6'4" Weight 270.00 lb Heart Rate 98 /min BP Systolic Sitting 94 mmHg BP Diastolic Sitting 60 mmHg Respiratory Rate 14 /min Body Temperature 97.5 F BMI (Body Mass Index) 32.9 kg/m2 06/22/2018 11:10am Height 76 inches 6'4" Weight 268.50 lb Heart Rate 88 /min BP Systolic Sitting 108 mmHg BP Diastolic Sitting 62 mmHg Respiratory Rate 14 /min Body Temperature 97.9 F BMI (Body Mass Index) 32.7 kg/m2 06/13/2018 10:15am Height 76 inches 6'4" Weight 273.12 lb Heart Rate 92 /min BP Systolic Sitting 112 mmHg BP Diastolic Sitting 74 mmHg Respiratory Rate 14 /min Body Temperature 97.5 F BMI (Body Mass Index) 33.2 kg/m2 06/06/2018 4:07pm Heart Rate 96 /min BP Systolic Sitting 132 mmHg rue lrg cuff BP Diastolic Sitting 90 mmHg rue lrg cuff BP Systolic Standing 92 mmHg rue lrg cuff BP Diastolic Standing 76 mmHg rue lrg cuff Respiratory Rate 28 /min Ejection Fraction 25-30% echo 05/21/2018 06/06/2018 4:05pm Ejection Fraction 25-30% date 05/21/18 ECHO 03/07/2018 11:35am Weight 289.00 lb with shoe Heart Rate 78 /min BP Systolic Sitting 110 mmHg Lue lg cuff BP Diastolic Sitting 80 mmHg Lue lg cuff BP Systolic Standing 100 mmHg Lue lg cuff BP Diastolic Standing 74 mmHg Lue lg cuff Respiratory Rate 16 /min Ejection Fraction 25-30% date 12/29/17 ECHO 02/14/2018 9:47am Weight 277.00 lb Heart Rate 58 /min BP Systolic Sitting 96 mmHg lue reg cuff BP Diastolic Sitting 66 mmHg lue reg cuff BP Systolic Standing 88 mmHg lue reg cuff BP Diastolic Standing 60 mmHg lue reg cuff Respiratory Rate 17 /min Ejection Fraction 25-30% 12/29/2017 echo 02/09/2018 10:36am Weight 273.25 lb without shoes Heart Rate 104 /min BP Systolic Sitting 102 mmHg regular cuff BP Diastolic Sitting 60 mmHg regular cuff BP Systolic Standing 96 mmHg BP Diastolic Standing 58 mmHg Respiratory Rate 20 /min 02/07/2018 1:36pm Height 75 inches 6'3" Weight 278.50 lb ,with lifevest no shoes Heart Rate 106 /min apical BP Systolic 80 mmHg Lue reg cuff BP Diastolic 68 mmHg Lue reg cuff BP Systolic Sitting 72 mmHg Rue reg cuff BP Diastolic Sitting 60 mmHg Rue reg cuff Respiratory Rate 16 /min BMI (Body Mass Index) 34.8 kg/m2 Ejection Fraction 25-30% 12/26/17 01/10/2018 8:34am Height 75 inches 6'3" Weight 288.00 lb with shoes Heart Rate 66 /min BP Systolic Sitting 110 mmHg Rue lrg cuff BP Diastolic Sitting 78 mmHg Rue lrg cuff BP Systolic Standing 110 mmHg Rue lrg cuff BP Diastolic Standing 82 mmHg Rue lrg cuff Respiratory Rate 17 /min BMI (Body Mass Index) 36.0 kg/m2 Ejection Fraction 25-30% 12/29/2017-echo 10/16/2014 3:18pm Height 75 inches 6'3" Heart Rate 93 /min BP Systolic 91 mmHg BP Diastolic 62 mmHg 09/19/2014 2:31pm Height 75 inches 6'3" Heart Rate 85 /min BP Systolic 144 mmHg BP Diastolic 97 mmHg 08/07/2014 3:28pm Height 75 inches 6'3" Weight 305.00 lb Heart Rate 91 /min BP Systolic 103 mmHg BP Diastolic 69 mmHg BMI (Body Mass Index) 38.1 kg/m2 06/12/2014 9:45am Height 75 inches 6'3" Weight 304.00 lb Heart Rate 84 /min BP Systolic Sitting 104 mmHg BP Diastolic Sitting 74 mmHg Respiratory Rate 16 /min BMI (Body Mass Index) 38.0 kg/m2 Results Test Date Facility Test Result H/L Range Note Comp Metabolic Panel 01/10/2019 [facility] Sodium 140 mmol/L N 135-145 [address] [place] [address] [phone] Potassium 4.6 mmol/L N 3.5-5.0 Chloride 103 mmol/L N 101-111 Co2 Carbon Dioxide 32 mmol/L N 22-32 Anion Gap 5 mmol/L N 2-11 Glucose 132 mg/dL High 70-100 Blood Urea Nitrogen 14 mg/dL N 6-24 Creatinine 0.94 mg/dL N 0.67-1.17 BUN/Creatinine Ratio 14.9 N 8-20 Calcium 9.8 mg/dL N 8.6-10.3 Total Protein 7.2 g/dL N 6.4-8.9 Albumin 4.3 g/dL N 3.2-5.2 Globulin 2.9 g/dL N 2-4 Albumin/Globulin Ratio 1.5 N 1-3 Total Bilirubin 0.40 mg/dL N 0.2-1.0 Alkaline Phosphatase 47 U/L N 34-104 Alt 19 U/L N 7-52 Ast 22 U/L N 13-39 Egfr Non- 83.0 >60 Egfr 100.5 >60 1 Laboratory 01/10/2019 [facility] NT-Pro B-Type 349 pg/mL Abnormal <=70 2 test finding [address] [place] [address] [phone] Comp Metabolic 12/11/2018 [facility] Sodium 139 N 135-[address] mmol/[place] [address] [phone] Potassium 4.4 mmol/L N 3.5-5.0 Chloride 103 mmol/L N 101-111 Co2 Carbon Dioxide 29 mmol/L N 22-32 Anion Gap 7 mmol/L N 2-11 Glucose 204 mg/dL High 70-100 Blood Urea Nitrogen 12 mg/dL N 6-24 Creatinine 1.05 mg/dL N 0.67-1.17 BUN/Creatinine Ratio 11.4 N 8-20 Calcium 9.7 mg/dL N 8.6-10.3 Total Protein 7.1 g/dL N 6.4-8.9 Albumin 4.3 g/dL N 3.2-5.2 Globulin 2.8 g/dL N 2-4 Albumin/Globulin Ratio 1.5 N 1-3 Total Bilirubin 0.40 mg/dL N 0.2-1.0 Alkaline Phosphatase 55 U/L N 34-104 Alt 23 U/L N 7-52 Ast 28 U/L N 13-39 Egfr Non- 73.1 >60 Egfr 88.4 >60 3 Laboratory 12/11/2018 [facility] NT-Pro B-Type 528 pg/mL Abnormal <=70 4 test finding [address] [place] [address] [phone] Comp Metabolic 11/28/2018 [facility] Sodium 133 Low 135-[address] mmol/[place] [address] [phone] Potassium 4.5 mmol/L N 3.5-5.0 Chloride 97 mmol/L Low 101-111 Co2 Carbon Dioxide 30 mmol/L N 22-32 Anion Gap 6 mmol/L N 2-11 Blood Urea Nitrogen 17 mg/dL N 6-24 Creatinine 1.31 mg/dL High 0.67-1.17 BUN/Creatinine Ratio 13.0 N 8-20 Calcium 9.5 mg/dL N 8.6-10.3 Total Protein 6.7 g/dL N 6.4-8.9 Albumin 4.1 g/dL N 3.2-5.2 Globulin 2.6 g/dL N 2-4 Albumin/Globulin Ratio 1.6 N 1-3 Total Bilirubin 0.50 mg/dL N 0.2-1.0 Alkaline Phosphatase 55 U/L N 34-104 Alt 18 U/L N 7-52 Ast 18 U/L N 13-39 Egfr Non- 56.6 >60 Egfr 68.5 >60 5 Glucose 503 mg/dL High 70-100 6 Laboratory 11/28/2018 [facility] NT-Pro B-Type 191 pg/mL Abnormal <=70 7 test finding [address] [place] [address] [phone] Comp Metabolic 10/29/2018 [facility] Sodium 139 N 135-[address] mmol/[place] [address] [phone] Potassium 4.8 mmol/L N 3.5-5.0 Chloride 102 mmol/L N 101-111 Co2 Carbon Dioxide 30 mmol/L N 22-32 Anion Gap 7 mmol/L N 2-11 Glucose 250 mg/dL High 70-100 Blood Urea Nitrogen 11 mg/dL N 6-24 Creatinine 1.07 mg/dL N 0.67-1.17 BUN/Creatinine Ratio 10.3 N 8-20 Calcium 9.6 mg/dL N 8.6-10.3 Total Protein 7.2 g/dL N 6.4-8.9 Albumin 4.2 g/dL N 3.2-5.2 Globulin 3.0 g/dL N 2-4 Albumin/Globulin Ratio 1.4 N 1-3 Total Bilirubin 0.40 mg/dL N 0.2-1.0 Alkaline Phosphatase 55 U/L N 34-104 Alt 19 U/L N 7-52 Ast 17 U/L N 13-39 Egfr Non- 71.5 >60 Egfr 86.5 >60 8 Laboratory 10/29/2018 [facility] NT-Pro B-Type 957 pg/mL Abnormal <=70 9 test finding [address] [place] [address] [phone] Comp Metabolic 10/22/2018 [facility] Sodium 139 N 135-[address] mmol/[place] [address] [phone] Potassium 4.4 mmol/L N 3.5-5.0 Chloride 103 mmol/L N 101-111 Co2 Carbon Dioxide 30 mmol/L N 22-32 Anion Gap 6 mmol/L N 2-11 Glucose 157 mg/dL High 70-100 Blood Urea Nitrogen 13 mg/dL N 6-24 Creatinine 1.07 mg/dL N 0.67-1.17 BUN/Creatinine Ratio 12.1 N 8-20 Calcium 9.5 mg/dL N 8.6-10.3 Total Protein 6.8 g/dL N 6.4-8.9 Albumin 4.1 g/dL N 3.2-5.2 Globulin 2.7 g/dL N 2-4 Albumin/Globulin Ratio 1.5 N 1-3 Total Bilirubin 0.30 mg/dL N 0.2-1.0 Alkaline Phosphatase 51 U/L N 34-104 Alt 19 U/L N 7-52 Ast 18 U/L N 13-39 Egfr Non- 71.5 >60 Egfr 86.5 >60 10 Laboratory 10/22/2018 [facility] NT-Pro B-Type 456 Abnormal <= 70 11 test finding [address] Natriuretic Pep pg/[place] [address] [phone] Comp Metabolic 10/08/2018 [facility] Sodium 137 N 135-[address] mmol/[place] [address] [phone] Potassium 4.4 mmol/L N 3.5-5.0 Chloride 101 mmol/L N 101-111 Co2 Carbon Dioxide 28 mmol/L N 22-32 Anion Gap 8 mmol/L N 2-11 Glucose 198 mg/dL High 70-100 Blood Urea Nitrogen 14 mg/dL N 6-24 Creatinine 1.24 mg/dL High 0.67-1.17 BUN/Creatinine Ratio 11.3 N 8-20 Calcium 9.8 mg/dL N 8.6-10.3 Total Protein 6.9 g/dL N 6.4-8.9 Albumin 4.2 g/dL N 3.2-5.2 Globulin 2.7 g/dL N 2-4 Albumin/Globulin Ratio 1.6 N 1-3 Total Bilirubin 0.30 mg/dL N 0.2-1.0 Alkaline Phosphatase 45 U/L N 34-104 Alt 19 U/L N 7-52 Ast 16 U/L N 13-39 Egfr Non- 60.3 >60 Egfr 73.0 >60 12 Laboratory 10/08/2018 [facility] NT-Pro B-Type 1003 Abnormal < =70 13 test finding [address] Natriuretic Pep pg/[place] [address] [phone] Comp Metabolic 07/31/2018 [facility] Sodium 139 N 135-[address] mmol/[place] [address] [phone] Potassium 4.6 mmol/L N 3.5-5.0 Chloride 104 mmol/L N 101-111 Co2 Carbon Dioxide 30 mmol/L N 22-32 Anion Gap 5 mmol/L N 2-11 Glucose 113 mg/dL High 70-100 Blood Urea Nitrogen 14 mg/dL N 6-24 Creatinine 0.92 mg/dL N 0.67-1.17 BUN/Creatinine Ratio 15.2 N 8-20 Calcium 9.7 mg/dL N 8.6-10.3 Total Protein 7.2 g/dL N 6.4-8.9 Albumin 4.3 g/dL N 3.2-5.2 Globulin 2.9 g/dL N 2-4 Albumin/Globulin Ratio 1.5 N 1-3 Total Bilirubin 0.40 mg/dL N 0.2-1.0 Alkaline Phosphatase 41 U/L N 34-104 Alt 24 U/L N 7-52 Ast 18 U/L N 13-39 Egfr Non- 85.1 >60 Egfr 103.0 >60 14 Laboratory test 07/31/2018 [facility] C Reactive 2.38 mg/L N < 8.[address] [place] [address] [phone] Comp Metabolic 07/09/2018 [facility] Sodium 138 mmol/L N 135- [address] [place] [address] [phone] Potassium 4.6 mmol/L N 3.5-5.0 Chloride 104 mmol/L N 101-111 Co2 Carbon Dioxide 27 mmol/L N 22-32 Anion Gap 7 mmol/L N 2-11 Glucose 123 mg/dL High 70-100 Blood Urea Nitrogen 16 mg/dL N 6-24 Creatinine 1.08 mg/dL N 0.67-1.17 BUN/Creatinine Ratio 14.8 N 8-20 Calcium 9.5 mg/dL N 8.6-10.3 Total Protein 7.5 g/dL N 6.4-8.9 Albumin 4.1 g/dL N 3.2-5.2 Globulin 3.4 g/dL N 2-4 Albumin/Globulin Ratio 1.2 N 1-3 Total Bilirubin 0.40 mg/dL N 0.2-1.0 Alkaline Phosphatase 42 U/L N 34-104 Alt 22 U/L N 7-52 Ast 22 U/L N 13-39 Egfr Non- 70.7 >60 Egfr 85.6 >60 15 Laboratory test 07/09/2018 [facility] C Reactive 4.49 mg/L N < 8.[address] [place] [address] [phone] CBC Auto Diff 07/09/2018 [facility] White Blood 4.0 N 3.5- 10.[address] Count 10^3/[place] [address] [phone] Red Blood Count 4.22 10^6/uL N 4.00-5.40 Hemoglobin 11.7 g/dL Low 14.0-18.0 Hematocrit 36 % Low 42-52 Mean Corpuscular Volume 85 fL N 80-94 Mean Corpuscular Hemoglobin 28 pg N 27-31 Mean Corpuscular HGB Conc 33 g/dL N 31-36 Red Cell Distribution Width 18 % High 10.5-15 Platelet Count 242 10^3/uL N 150-450 Mean Platelet Volume 8.3 um3 N 7.4-10.4 Abs Neutrophils 2.1 10^3/uL N 1.5-7.7 Abs Lymphocytes 1.3 10^3/uL N 1.0-4.8 Abs Monocytes 0.5 10^3/uL N 0-0.8 Abs Eosinophils 0.1 10^3/uL N 0-0.6 Abs Basophils 0 10^3/uL N 0-0.2 Abs Nucleated RBC 0 10^3/uL Granulocyte % 52.1 % N 38-83 Lymphocyte % 32.4 % N 25-47 Monocyte % 12.7 % High 0-7 Eosinophil % 2.3 % N 0-6 Basophil % 0.5 % N 0-2 Nucleated Red Blood Cells % 0 CBC Auto Diff 07/03/2018 [facility] White Blood 4.7 10^3/uL N 3.5-10.[address] [place] [address] [phone] Red Blood Count 4.10 10^6/uL N 4.00-5.40 Hemoglobin 11.4 g/dL Low 14.0-18.0 Hematocrit 35 % Low 42-52 Mean Corpuscular Volume 84 fL N 80-94 Mean Corpuscular Hemoglobin 28 pg N 27-31 Mean Corpuscular HGB Conc 33 g/dL N 31-36 Red Cell Distribution Width 18 % High 10.5-15 Platelet Count 246 10^3/uL N 150-450 Mean Platelet Volume 8.3 um3 N 7.4-10.4 Abs Neutrophils 2.8 10^3/uL N 1.5-7.7 Abs Lymphocytes 1.3 10^3/uL N 1.0-4.8 Abs Monocytes 0.5 10^3/uL N 0-0.8 Abs Eosinophils 0.1 10^3/uL N 0-0.6 Abs Basophils 0 10^3/uL N 0-0.2 Abs Nucleated RBC 0 10^3/uL Granulocyte % 59.5 % N 38-83 Lymphocyte % 27.0 % N 25-47 Monocyte % 10.3 % High 0-7 Eosinophil % 2.7 % N 0-6 Basophil % 0.5 % N 0-2 Nucleated Red Blood Cells % 0 Comp Metabolic Panel 07/03/2018 [facility] Sodium 136 mmol/L N 135-[address] [place] [address] [phone] Chloride 104 mmol/L N 101-111 Co2 Carbon Dioxide 27 mmol/L N 22-32 Glucose 272 mg/dL High 70-100 Blood Urea Nitrogen 14 mg/dL N 6-24 Creatinine 1.02 mg/dL N 0.67-1.17 BUN/Creatinine Ratio 13.7 N 8-20 Calcium 9.3 mg/dL N 8.6-10.3 Total Protein 7.1 g/dL N 6.4-8.9 Albumin 3.9 g/dL N 3.2-5.2 Globulin 3.2 g/dL N 2-4 Albumin/Globulin Ratio 1.2 N 1-3 Total Bilirubin 0.30 mg/dL N 0.2-1.0 Alkaline Phosphatase 42 U/L N 34-104 Alt 34 U/L N 7-52 Egfr Non- 75.5 >60 Egfr 91.4 >60 16 Potassium 4.9 mmol/L N 3.5-5.0 Anion Gap 5 mmol/L N 2-11 Ast 36 U/L N 13-39 Laboratory test 07/03/2018 [facility] C Reactive 2.67 mg/L N < 8.[address] [place] [address] [phone] Xray 06/27/2018 [facility] VL Upper Ext <pending> [address] [place] [address] Right [phone] CBC Auto Diff 06/25/2018 [facility] White Blood 5.4 N 3.5- 10.[address] Count 10^3/[place] [address] [phone] Red Blood Count 4.31 10^6/uL N 4.00-5.40 Hemoglobin 12.1 g/dL Low 14.0-18.0 Hematocrit 36 % Low 42-52 Mean Corpuscular Volume 84 fL N 80-94 Mean Corpuscular Hemoglobin 28 pg N 27-31 Mean Corpuscular HGB Conc 33 g/dL N 31-36 Red Cell Distribution Width 18 % High 10.5-15 Platelet Count 264 10^3/uL N 150-450 Mean Platelet Volume 8.3 um3 N 7.4-10.4 Abs Neutrophils 3.6 10^3/uL N 1.5-7.7 Abs Lymphocytes 1.2 10^3/uL N 1.0-4.8 Abs Monocytes 0.5 10^3/uL N 0-0.8 Abs Eosinophils 0.1 10^3/uL N 0-0.6 Abs Basophils 0 10^3/uL N 0-0.2 Abs Nucleated RBC 0 10^3/uL Granulocyte % 66.9 % N 38-83 Lymphocyte % 22.1 % Low 25-47 Monocyte % 8.5 % High 0-7 Eosinophil % 1.8 % N 0-6 Basophil % 0.7 % N 0-2 Nucleated Red Blood Cells % 0 Comp Metabolic Panel 06/25/2018 [facility] Sodium 138 mmol/L N 135-[address] [place] [address] [phone] Potassium 4.4 mmol/L N 3.5-5.0 Chloride 105 mmol/L N 101-111 Co2 Carbon Dioxide 25 mmol/L N 22-32 Anion Gap 8 mmol/L N 2-11 Glucose 207 mg/dL High 70-100 Blood Urea Nitrogen 14 mg/dL N 6-24 Creatinine 1.16 mg/dL N 0.67-1.17 BUN/Creatinine Ratio 12.1 N 8-20 Calcium 9.4 mg/dL N 8.6-10.3 Total Protein 7.2 g/dL N 6.4-8.9 Albumin 4.1 g/dL N 3.2-5.2 Globulin 3.1 g/dL N 2-4 Albumin/Globulin Ratio 1.3 N 1-3 Total Bilirubin 0.40 mg/dL N 0.2-1.0 Alkaline Phosphatase 49 U/L N 34-104 Alt 40 U/L N 7-52 Ast 33 U/L N 13-39 Egfr Non- 65.1 >60 Egfr 78.8 >60 17 Laboratory test 06/25/2018 [facility] C Reactive 2.69 mg/L N < 8.[address] Protein [place], [place] [id number] [phone] Wound 06/22/2018 [facility] Wound/Misc SEE RESULT 18 Culture/[address] [place] [address] Stain [phone] CBC Auto Diff 06/18/2018 [facility] White Blood 4.8 10^3/uL N 3.5-10.[address] [place] [address] [phone] Red Blood Count 4.31 10^6/uL N 4.00-5.40 Hemoglobin 11.9 g/dL Low 14.0-18.0 Hematocrit 36 % Low 42-52 Mean Corpuscular Volume 83 fL N 80-94 Mean Corpuscular Hemoglobin 28 pg N 27-31 Mean Corpuscular HGB Conc 33 g/dL N 31-36 Red Cell Distribution Width 17 % High 10.5-15 Platelet Count 258 10^3/uL N 150-450 Mean Platelet Volume 8.2 um3 N 7.4-10.4 Abs Neutrophils 3.2 10^3/uL N 1.5-7.7 Abs Lymphocytes 1.1 10^3/uL N 1.0-4.8 Abs Monocytes 0.5 10^3/uL N 0-0.8 Abs Eosinophils 0.1 10^3/uL N 0-0.6 Abs Basophils 0 10^3/uL N 0-0.2 Abs Nucleated RBC 0 10^3/uL Granulocyte % 65.9 % N 38-83 Lymphocyte % 22.2 % Low 25-47 Monocyte % 10.2 % High 0-7 Eosinophil % 1.4 % N 0-6 Basophil % 0.3 % N 0-2 Nucleated Red Blood Cells % 0 Comp Metabolic Panel 06/18/2018 [facility] Sodium 136 mmol/L N 135-[address] [place] [address] [phone] Potassium 4.5 mmol/L N 3.5-5.0 Chloride 101 mmol/L N 101-111 Co2 Carbon Dioxide 26 mmol/L N 22-32 Anion Gap 9 mmol/L N 2-11 Glucose 293 mg/dL High 70-100 Blood Urea Nitrogen 20 mg/dL N 6-24 Creatinine 1.22 mg/dL High 0.67-1.17 BUN/Creatinine Ratio 16.4 N 8-20 Calcium 9.4 mg/dL N 8.6-10.3 Total Protein 7.0 g/dL N 6.4-8.9 Albumin 4.0 g/dL N 3.2-5.2 Globulin 3.0 g/dL N 2-4 Albumin/Globulin Ratio 1.3 N 1-3 Total Bilirubin 0.40 mg/dL N 0.2-1.0 Alkaline Phosphatase 43 U/L N 34-104 Alt 24 U/L N 7-52 Ast 20 U/L N 13-39 Egfr Non- 61.4 >60 Egfr 74.3 >60 19 Laboratory test 06/18/2018 [facility] C Reactive 3.77 mg/L N < 8.[address] [place] [address] [phone] Comp Metabolic 06/13/2018 [facility] Sodium 139 mmol/L N 135- [address] [place] [address] [phone] Chloride 102 mmol/L N 101-111 Co2 Carbon Dioxide 30 mmol/L N 22-32 Glucose 205 mg/dL High 70-100 Blood Urea Nitrogen 13 mg/dL N 6-24 Creatinine 0.99 mg/dL N 0.67-1.17 BUN/Creatinine Ratio 13.1 N 8-20 Calcium 9.6 mg/dL N 8.6-10.3 Total Protein 6.9 g/dL N 6.4-8.9 Albumin 4.1 g/dL N 3.2-5.2 Globulin 2.8 g/dL N 2-4 Albumin/Globulin Ratio 1.5 N 1-3 Total Bilirubin 0.30 mg/dL N 0.2-1.0 Alkaline Phosphatase 48 U/L N 34-104 Alt 41 U/L N 7-52 Ast 40 U/L High 13-39 Egfr Non- 78.2 >60 Egfr 94.6 >60 20 Potassium 5.3 mmol/L High 3.5-5.0 Anion Gap 7 mmol/L N 2-11 Laboratory test 06/13/2018 [facility] C Reactive 2.65 mg/L N < 8.[address] [place] [address] [phone] CBC Auto Diff 06/13/2018 [facility] White Blood 5.3 N 3.5- 10.[address] Count 10^3/[place] [address] [phone] Red Blood Count 4.59 10^6/uL N 4.00-5.40 Hemoglobin 12.6 g/dL Low 14.0-18.0 Hematocrit 38 % Low 42-52 Mean Corpuscular Volume 84 fL N 80-94 Mean Corpuscular Hemoglobin 28 pg N 27-31 Mean Corpuscular HGB Conc 33 g/dL N 31-36 Red Cell Distribution Width 17 % High 10.5-15 Platelet Count 285 10^3/uL N 150-450 Mean Platelet Volume 8.4 um3 N 7.4-10.4 Abs Neutrophils 3.3 10^3/uL N 1.5-7.7 Abs Lymphocytes 1.3 10^3/uL N 1.0-4.8 Abs Monocytes 0.5 10^3/uL N 0-0.8 Abs Eosinophils 0.1 10^3/uL N 0-0.6 Abs Basophils 0 10^3/uL N 0-0.2 Abs Nucleated RBC 0 10^3/uL Granulocyte % 62.6 % N 38-83 Lymphocyte % 24.7 % Low 25-47 Monocyte % 9.6 % High 0-7 Eosinophil % 2.7 % N 0-6 Basophil % 0.4 % N 0-2 Nucleated Red Blood Cells % 0.1 Comp Metabolic Panel 05/14/2018 [facility] Sodium 138 mmol/L N 135-[address] [place] [address] [phone] Chloride 101 mmol/L N 101-111 Co2 Carbon Dioxide 27 mmol/L N 22-32 Glucose 198 mg/dL High 70-100 Blood Urea Nitrogen 27 mg/dL High 6-24 Creatinine 1.51 mg/dL High 0.67-1.17 BUN/Creatinine Ratio 17.9 N 8-20 Calcium 10.0 mg/dL N 8.6-10.3 Total Protein 7.4 g/dL N 6.4-8.9 Albumin 4.3 g/dL N 3.2-5.2 Globulin 3.1 g/dL N 2-4 Albumin/Globulin Ratio 1.4 N 1-3 Total Bilirubin 0.40 mg/dL N 0.2-1.0 Alkaline Phosphatase 48 U/L N 34-104 Alt 19 U/L N 7-52 Ast 17 U/L N 13-39 Egfr Non- 48.0 >60 Egfr 58.1 >60 21 Potassium 5.1 mmol/L High 3.5-5.0 Anion Gap 10 mmol/L N 2-11 Laboratory test 05/14/2018 [facility] B-Type 115 pg/mL High [address] [place] [address] Peptide BNP [phone] Laboratory test 04/25/2018 [facility] NT-Pro B-Type 4112 Abnormal <=70 [address] Natriuretic Pep pg/[place] [address] [phone] Comp Metabolic 04/25/2018 [facility] Sodium 139 N 139- Panel [address] mmol/L 145 [place] [address] [phone] Potassium 4.8 mmol/L N 3.5-5.0 Chloride 102 mmol/L N 101-111 Co2 Carbon Dioxide 28 mmol/L N 22-32 Anion Gap 9 mmol/L N 2-11 Glucose 317 mg/dL High 70-100 Blood Urea Nitrogen 12 mg/dL N 6-24 Creatinine 1.10 mg/dL N 0.67-1.17 BUN/Creatinine Ratio 10.9 N 8-20 Calcium 9.5 mg/dL N 8.6-10.3 Total Protein 6.9 g/dL N 6.4-8.9 Albumin 4.0 g/dL N 3.2-5.2 Globulin 2.9 g/dL N 2-4 Albumin/Globulin Ratio 1.4 N 1-3 Total Bilirubin 0.50 mg/dL N 0.2-1.0 Alkaline Phosphatase 48 U/L N 34-104 Alt 20 U/L N 7-52 Ast 17 U/L N 13-39 Egfr Non- 69.2 >60 Egfr 89.1 >60 24 Basic Metabolic Panel 02/14/2018 [facility] Sodium 141 mmol/L N 139-[address] [place] [address] [phone] Potassium 4.4 mmol/L N 3.5-5.0 Chloride 104 mmol/L N 101-111 Co2 Carbon Dioxide 30 mmol/L N 22-32 Anion Gap 7 mmol/L N 2-11 Glucose 136 mg/dL High 70-100 Blood Urea Nitrogen 12 mg/dL N 6-24 Creatinine 1.03 mg/dL N 0.67-1.17 BUN/Creatinine Ratio 11.7 N 8-20 Calcium 9.6 mg/dL N 8.6-10.3 Egfr Non- 75.0 >60 Egfr 96.4 >60 25 Rapid Influenza 12/26/2017 [facility] Influenza A NEGATIVE Negative 26 A & B Molecular [address] [place] [address] [phone] Influenza B Molecular NEGATIVE Negative Laboratory test 12/26/2017 [facility] Troponin I 2.34 ng/mL High <0.04 [address] [place] [address] [phone] 1 Because ethnic data is not always [...] 5 Kidney failure <15 (or dialysis) 2 NT-proBNP values less than 300 pg/mL have a 99% negative predictive value for excluding acute congestive heart failure. A cutoff of 1200 pg/mL for patients with an eGFR<60 yields a diagnostic sensitivity and specificity of 89% and 72% for acute congestive heart failure. A diagnostic NT-proBNP cutoff of 900 pg/mL has been suggested in adults 50-75 years of age in the absence of renal failure. Test Performed by: [place] [address] 3 Because ethnic data is not always readily [...] 15-29 5 Kidney failure <15 (or dialysis) 4 NT-proBNP values less than 300 pg/mL have a 99% negative predictive value for excluding acute congestive heart failure. A cutoff of 1200 pg/mL for patients with an eGFR<60 yields a diagnostic sensitivity and specificity of 89% and 72% for acute congestive heart failure. A diagnostic NT-proBNP cutoff of 900 pg/mL has been suggested in adults 50-75 years of age in the absence of renal failure. Test Performed by: [address] [address] 5 Because ethnic data is not always readily [...] 15-29 5 Kidney failure <15 (or dialysis) 6 Critical Result [id number] Called to KAY MCCALL, at: 14:53:06 by:[id number] Read back by:KAY MCCALL, 7 NT-proBNP values less than 300 pg/mL have a 99% negative predictive value for excluding acute congestive heart failure. A cutoff of 1200 pg/mL for patients with an eGFR<60 yields a diagnostic sensitivity and specificity of 89% and 72% for acute congestive heart failure. A diagnostic NT-proBNP cutoff of 900 pg/mL has been suggested in adults 50-75 years of age in the absence of renal failure. Test Performed by: [facility] [address] [place] [address] 8 Because ethnic data is not always readily [...] 15-29 5 Kidney failure <15 (or dialysis) 9 NT-proBNP values less than 300 pg/mL have a 99% negative predictive value for excluding acute congestive heart failure. A cutoff of 1200 pg/mL for patients with an eGFR<60 yields a diagnostic sensitivity and specificity of 89% and 72% for acute congestive heart failure. A diagnostic NT-proBNP cutoff of 900 pg/mL has been suggested in adults 50-75 years of age in the absence of renal failure. Test Performed by: [address] [address] 10 Because ethnic data is not always readily [...] 15-29 5 Kidney failure <15 (or dialysis) 11 NT-proBNP values less than 300 pg/mL have a 99% negative predictive value for excluding acute congestive heart failure. A cutoff of 1200 pg/mL for patients with an eGFR<60 yields a diagnostic sensitivity and specificity of 89% and 72% for acute congestive heart failure. A diagnostic NT-proBNP cutoff of 900 pg/mL has been suggested in adults 50-75 years of age in the absence of renal failure. Test Performed by: [address] [address] 12 Because ethnic data is not always readily [...] 15-29 5 Kidney failure <15 (or dialysis) 13 NT-proBNP values less than 300 pg/mL have a 99% negative predictive value for excluding acute congestive heart failure. A cutoff of 1200 pg/mL for patients with an eGFR<60 yields a diagnostic sensitivity and specificity of 89% and 72% for acute congestive heart failure. A diagnostic NT-proBNP cutoff of 900 pg/mL has been suggested in adults 50-75 years of age in the absence of renal failure. Test Performed by: [place] [address] 14 Because ethnic data is not always readily [...] 15-29 5 Kidney failure <15 (or dialysis) 15 Because ethnic data is not always readily [...] 15-29 5 Kidney failure <15 (or dialysis) 16 Because ethnic data is not always readily [...] 15-29 5 Kidney failure <15 (or dialysis) 17 Because ethnic data is not always readily [...] 15-29 5 Kidney failure <15 (or dialysis) 18 SEE RESULT BELOW Name: THEE LOW : [address]: Aguilar Salvador MD Acct: [id number] Unit: [id number] AGE: 58 Location: [facility] Re06/22/18 SEX: M Status: REG REF SPEC: [id number] BURAK: 06/22/[address] [facility] [address]: Aguilar Salvador MD REQ: [id number] RECD: 06/22/18 STATUS: COMP _ SOURCE: TOE SPDESC: ORDERED: Culture Stain COMMENTS: [id number] QUERIES: Specimen Description RIGHT GREAT TOE Procedure Result Reported Site Wound/Misc Gram Stain Final 06/23/18- 821 ML 2+ Neutrophils No Organisms Seen Wound/Misc Culture Final 06/24/18- 24 ML No Growth Day 2 * ML - Main Lab . END OF REPORT DEPARTMENT OF PATHOLOGY, [address] [place] [address] Nik Dudley M.D. Director [facility] # [id number] 19 Because ethnic data is not always readily [...] 15-29 5 Kidney failure <15 (or dialysis) 20 Because ethnic data is not always readily [...] 15-29 5 Kidney failure <15 (or dialysis) 21 Because ethnic data is not always readily [...] 15-29 5 Kidney failure <15 (or dialysis) 22 >100 to <200 pg/mL: likely compensated congestive heart failure (CHF) 200 to 400 pg/mL: likely moderate CHF >400 pg/mL: likely moderate to severe CHF 23 NT-proBNP values less than 300 pg/mL have a 99% negative predictive value for excluding acute congestive heart failure. A cutoff of 1200 pg/mL for patients with an eGFR<60 yields a diagnostic sensitivity and specificity of 89% and 72% for acute congestive heart failure. A diagnostic NT-proBNP cutoff of 900 pg/mL has been suggested in adults 50-75 years of age in the absence of renal failure. Test Performed by: [address] [address] 24 Because ethnic data is not always readily [...] 15-29 5 Kidney failure <15 (or dialysis) 25 Because ethnic data is not always readily [...] 15-29 5 Kidney failure <15 (or dialysis) 26 Deputy Manager: [id number] 27 Result TnIDx:2.34 Called to NATHANIEL at: 16:25:01 by:[id number] Read back by: NATHANIEL Procedures Date Code Description Status 10/12/2018 24195 Polysomnography Sleep Staging 4+ Parameters W/Cpap Completed 09/05/2018 19157 EKG Tracing & Interpretation Completed 07/03/2018 15290 Application Skin Graft Face,Scalp,Eyelids,Mouth, Neck Up Completed To 100CM 06/26/2018 20272 Application Skin Graft Face,Scalp,Eyelids,Mouth, Neck Up Completed To 100CM 06/19/2018 91707 Removal Devitalization Tissue Wound Less Than Equal 20 Completed Square CM 06/12/2018 33564 Removal Devitalization Tissue Wound Less Than Equal 20 Completed Square CM 05/31/2018 26123 Removal Devitalization Tissue Wound Less Than Equal 20 Completed Square CM 05/21/2018 37256 ECHO Transthorasic Realtime 2D W Doppler & Color Flow Hosp Completed 03/02/2018 71264 ECHO Transthoracic, Real-Time 2D With Doppler And Color Completed Flow 03/02/2018 16565 ECHO Transthoracic, Real-Time 2D With Doppler And Color Completed Flow 02/16/2018 66387 Cardioversion Completed 02/16/2018 51404 EKG, Interpretation Only Completed 02/16/2018 70635 Echocardiography, Transesophageal, Real Time W/Image 2D Completed W/W/O M-M 02/16/2018 85881 Pulse Wave/Continuous-Interp.RPT Completed 02/16/2018 07536 Color Flow Doppler/Interp & Reprt Completed 02/14/2018 07337 EKG Tracing & Interpretation Completed 02/07/2018 94163 EKG Tracing & Interpretation Completed 01/10/2018 76203 EKG Tracing & Interpretation Completed 12/29/2017 92187 Echocardiogram, Limited Study Completed 12/28/2017 35337 Cath PLMT&NJX L Ventriculog Img S&I Completed 12/27/2017 29391 EKG, Interpretation Only Completed 12/26/2017 21963 ECHO Transthorasic Realtime 2D W Doppler & Color Flow Hosp Completed 01/28/2016 31626 Stress Test Completed 09/02/2014 86345 Neuroplasty &/Or Transposition; Ulnar Nerve AT Elbow Completed 06/12/2014 18942 Nerve Conduction 05-06 Studies Completed 06/12/2014 11342 Needle Electromyography Complete, Five Or More Muscles Completed Studied 05/27/2008 28633 ECHO/Stress Completed 05/27/2008 03272 Stress Test Completed 05/27/2008 01831 Stress Test Completed Encounters Type Date Location Provider Dx Diagnosis Office Visit 02/06/2019 Ravi Vogt I42.9 Cardiomyopathy, 8:00a Of Kristian Ingram M.D. unspecified I48.92 Unspecified atrial flutter Office Visit 01/08/2019 11:00a Pulmonology And Zahira G47.37 Central sleep [facility] Peres, RN, apnea in [facility] DIRECTOR AUTO-BC conditions classified elsewhere G47.33 Obstructive sleep apnea (adult) (pediatric) Z68.33 Body mass index (BMI) 33.0-33.9, adult Office Visit 11/28/2018 10:30a Ravi Vogt I48.92 Unspecified Of Kristian Ingram M.D. atrial flutter I42.9 Cardiomyopathy, unspecified Office Visit 11/26/2018 [facility] G47.33 Obstructive sleep 11:00a [facility] Peres, RN, apnea (adult) [facility] DIRECTOR AUTO-BC (pediatric) G47.37 Central sleep apnea in conditions classified elsewhere Z68.32 Body mass index (BMI) 32.0-32.9, adult Office Visit 10/23/2018 9:30a [facility] Kayley Vogt Z86.19 Personal history Tree Salvador M.D. of other Diseases infectious and parasitic diseases E11.9 Type 2 diabetes mellitus without complications Office Visit 09/13/2018 2:00p Pulmonology And Kira G47.33 Obstructive sleep Sleep Services Of MD Debi apnea (adult) [facility] (pediatric) G47.37 Central sleep apnea in conditions classified elsewhere I50.22 Chronic systolic (congestive) heart failure E66.09 Other obesity due to excess calories Z68.33 Body mass index (BMI) 33.0-33.9, adult Office Visit 09/05/2018 1:30p [facility] Kennedy Vogt I50.22 Chronic systolic Of Kristian Ingram M.D. (congestive) heart failure I48.92 Unspecified atrial flutter I42.9 Cardiomyopathy, unspecified Office Visit 08/21/2018 10:50a [facility] Kayley Vogt E11.621 Type 2 Infectious Riana Salvador diabetes Diseases mellitus with foot ulcer Z79.2 FPC (current) use of antibiotics E11.9 Type 2 diabetes mellitus without complications Office Visit 07/31/2018 [place] Fransisco Vogt M86.171 Other acute 10:50a For Tree Salvador M.D. osteomyelitis, Diseases right ankle and foot E11.69 Type 2 diabetes mellitus with other specified complication Office Visit 07/24/2018 11:15a Wound Care Sandeep Huang E11.9 Type 2 diabetes [facility] Riana Hester mellitus without complications M86.071 Acute hematogenous osteomyelitis, right ankle and foot Office Visit 07/10/2018 3:00p Wound Care Sandeep Huang L97.501 Non-prs chr [facility] Riana Hester ulcer oth prt unsp foot limited to brkdwn skin E11.621 Type 2 diabetes mellitus with foot ulcer M86.071 Acute hematogenous osteomyelitis, right ankle and foot Office Visit 07/10/2018 9:10a [facility] Aguilar Vogt E11.621 Type 2 Infectious Alexander Salvador. diabetes Diseases mellitus with foot ulcer M86.171 Other acute osteomyelitis, right ankle and foot Z79.2 FPC (current) use of antibiotics E11.69 Type 2 diabetes mellitus with other specified complication Office Visit 06/22/2018 [facility] Aguilar Vogt M86.171 Other acute 11:10a For Infectious Alexander Salvador. osteomyelitis, Diseases right ankle and foot E11.69 Type 2 diabetes mellitus with other specified complication L97.501 Non-prs chr ulcer oth prt unsp foot limited to brkdwn skin E11.621 Type 2 diabetes mellitus with foot ulcer Office Visit 06/13/2018 [facility] Aguilar Vogt M86.171 Other acute 9:50a For Infectious Riana Salvador osteomyelitis, Diseases right ankle and foot E11.622 Type 2 diabetes mellitus with other skin ulcer E11.69 Type 2 diabetes mellitus with other specified complication L97.519 Non-prs chronic ulcer oth prt right foot w unsp severity Office Visit 06/06/2018 4:00p [facility] Kennedy Vogt I95.2 Hypotension due to Of Kristian Ingram M.D. drugs I42.9 Cardiomyopathy, unspecified I48.4 Atypical atrial flutter T46.2x5D Adverse effect of other antidysrhythmic drugs, subs encntr Office Visit 05/25/2018 10:00a Wound Care Enoch Hawkins, L97.501 Non-prs chr [facility] , FACS ulcer oth prt unsp foot limited to brkdwn skin E11.622 Type 2 diabetes mellitus with other skin ulcer I11.0 Hypertensive heart disease with heart failure G47.33 Obstructive sleep apnea (adult) (pediatric) Office Visit 05/23/2018 11:34a [facility] Melita Beach, I95.2 Hypotension due Of Electrical Maintenance Technician Anahi.DLucie to drugs I42.9 Cardiomyopathy, unspecified T46.2x5D Adverse effect of other antidysrhythmic drugs, subs encntr [facility] I95.2 Hypotension due 3:31p Assoc,catarina Mayers to drugs Hospitalists E11.621 Type 2 diabetes mellitus with foot ulcer L97.519 Non-prs chronic ulcer oth prt right foot w unsp severity 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 I42.9 Cardiomyopathy, unspecified Office Visit 05/22/2018 [facility] Cinthya Carson, I95.1 Orthostatic 3:31p Assoc,catarina Mayers hypotension Hospitalists I48.92 Unspecified atrial flutter F33.9 Major depressive disorder, recurrent, unspecified E10.9 Type 1 diabetes mellitus without complications I50.22 Chronic systolic (congestive) heart failure E78.5 Hyperlipidemia, unspecified Office Visit 05/22/2018 [place] Victoriano FLucie I42.9 Cardiomyopathy, 11:28a Cardiology Riana Lozano unspecified I95.1 Orthostatic hypotension I50.9 Heart failure, unspecified Office Visit 05/21/2018 [facility] Cinthya Carson, I95.1 Orthostatic 3:30p Assoc,catarina Mayers hypotension Hospitalists I48.92 Unspecified atrial flutter F33.9 Major depressive disorder, recurrent, unspecified E10.9 Type 1 diabetes mellitus without complications E78.5 Hyperlipidemia, unspecified I50.22 Chronic systolic (congestive) heart failure Office Visit 05/21/2018 [place] Luis DickLucie I42.9 Cardiomyopathy, 10:24a Cardiology Riana Espino unspecified R42 Dizziness and giddiness I95.9 Hypotension, unspecified Office Visit 05/20/2018 3:30p [facility] Marsha I95.1 Orthostatic Assoc,catarina Banerjee M.D. hypotension Hospitalists E10.9 Type 1 diabetes mellitus without complications I42.9 Cardiomyopathy, unspecified I48.92 Unspecified atrial flutter F33.9 Major depressive disorder, recurrent, unspecified Office Visit 05/20/2018 12:02p [facility] Melita Beach, I95.2 Hypotension due Of Electrical Maintenance Technician M.DLucie to drugs I42.9 Cardiomyopathy, unspecified T46.2x5A Adverse effect of other antidysrhythmic drugs, init encntr Office Visit 05/19/2018 3:29p [facility] Marsha I95.0 Idiopathic Assoc,pc Riana Banerjee hypotension Hospitalists E10.9 Type 1 diabetes mellitus without complications I48.92 Unspecified atrial flutter F33.9 Major depressive disorder, recurrent, unspecified Office Visit 05/18/2018 3:28p [facility] Amilcar Scruggs, R42 Dizziness and Assoc,pc Aries giddiness Hospitalists E10.9 Type 1 diabetes mellitus without complications Z86.79 Personal history of other diseases of the circulatory system I42.9 Cardiomyopathy, unspecified E78.5 Hyperlipidemia, unspecified G47.33 Obstructive sleep apnea (adult) (pediatric) Office Visit 05/18/2018 9:30a Wound Care Zahira Peres, L97.519 Non- prs chronic [facility] [place] RN, DIRECTOR AUTO-BC ulcer oth prt right foot w unsp severity E11.622 Type 2 diabetes mellitus with other skin ulcer L97.501 Non-prs chr ulcer oth prt unsp foot limited to brkdwn skin I11.0 Hypertensive heart disease with heart failure Office Visit 03/07/2018 Ravi Vogt I42.9 Cardiomyopathy, 11:45a Cardiology Of Riana Ingram unspecified Electrical Maintenance Technician I48.4 Atypical atrial flutter I50.9 Heart failure, unspecified Office Visit 02/14/2018 Ravi Vogt I42.9 Cardiomyopathy, 9:45a Cardiology Of Riana Ingram unspecified Electrical Maintenance Technician I48.4 Atypical atrial flutter I50.9 Heart failure, unspecified Office Visit 02/09/2018 [place] Nurse Visit I42.9 Cardiomyopathy, 10:00a Cardiology Of IC unspecified Electrical Maintenance Technician Office Visit 01/10/2018 Ravi Vogt I42.9 Cardiomyopathy, 8:30a Cardiology Of Riana Ingram unspecified Electrical Maintenance Technician R00.0 Tachycardia, unspecified I42.0 Dilated cardiomyopathy I50.9 Heart failure, unspecified Office Visit 12/30/2017 [place] Melita Beach I42.9 Cardiomyopathy, 2:41p Cardiology Connie Mayers unspecified Electrical Maintenance Technician R00.0 Tachycardia, unspecified Office Visit 12/30/2017 1:47p [facility] Diana Coronado, J81.0 Acute pulmonary Assoc,pc N.P. edema Hospitalists J96.01 Acute respiratory failure with hypoxia I42.0 Dilated cardiomyopathy I21.4 Non-St elevation (Nstemi) myocardial infarction Office Visit 12/29/2017 1:46p [facility] Diana Coronado, J81.0 Acute pulmonary Assoc,pc N.P. edema Hospitalists J96.01 Acute respiratory failure with hypoxia I42.0 Dilated cardiomyopathy I21.4 Non-St elevation (Nstemi) myocardial infarction Office Visit 12/29/2017 3:26p [facility] Oc Mendez, I50.9 Heart failure, Of [facility] M.Sin, FACC, unspecified [facility] I42.9 Cardiomyopathy, unspecified Office Visit 12/28/2017 1:44p [facility] Diana Coronado J81.0 Acute pulmonary Assoc,pc N.P. edema Hospitalists J96.01 Acute respiratory failure with hypoxia I42.0 Dilated cardiomyopathy I21.4 Non-St elevation (Nstemi) myocardial infarction Office Visit 12/27/2017 10:57a Intensivists Chuy Caputo J96.01 Acute respiratory MD Robert failure with hypoxia J81.0 Acute pulmonary edema I42.0 Dilated cardiomyopathy I21.4 Non-St elevation (Nstemi) myocardial infarction Office Visit 12/27/2017 [place] Melita Beach, I42.9 Cardiomyopathy, 12:41p Cardiology Connie Mayers unspecified Electrical Maintenance Technician I50.9 Heart failure, unspecified R00.0 Tachycardia, unspecified Office Visit 12/26/2017 10:55a Intensivists Chuy Jones J81.0 Acute pulmonary MD edema J96.01 Acute respiratory failure with hypoxia I42.0 Dilated cardiomyopathy E10.9 Type 1 diabetes mellitus without complications Office Visit 12/26/2017 2:10p [facility] Kennedy Vogt J81.0 Acute pulmonary Of Kristian Ingram M.D. edema I42.9 Cardiomyopathy, unspecified R06.02 Shortness of breath Office Visit 08/07/2014 3:15p Orthopedic Jessi Reynaga, 354.2 [place] Ulnar Services Of Daniel Mayers Nerve Plan of Treatment Future Appointment(s):06/17/2019 10:30 am - Zahira Peres DNP, RN, DIRECTOR AUTO-BC at [facility]04/09/2019 - Zahira Peres DNP RN, DIRECTOR AUTO- BCG47.37 Central sleep apnea in conditions classified elsewhereComments:Sleep Apnea - NPSG 05/04/10 AHI 31.6/hour, joycelyn oxygen 80%, BMI 36.3G47.33 Obstructive sleep apnea (adult) (pediatric)New Orders:Sleep-Homecare, Ordered: 04/09/19Follow up:2 monthsRecommendations:Continue PAP device, Benefitting and need to increase use/compliance with treatment. Adjustment of ASV to lower EPAP min 5 max 7 (currently set at min 7 max 7). Suggest you extend your ramp time ( try 45 minutes). Cleaning Wipe off mask daily (baby wipe-no scent, or warm water) Clean mask, tubing, filter, and water chamber weekly in mild no scent dish soap and water. Hang to dry. If you have any sleepiness while driving you MUST avoid operating a vehicle or machinery. If you have difficulty withyour equipment, or need to replace your mask or hoses, please contact your homecare agency. A weightchange of 20 pounds or more may have an effect on your equipment; if you are experiencing problems please call for an appointment. If you have any further questions, please call the [facility] at .R00.0 Tachycardia, unspecifiedRecommendations:Dr. Ingram's office advised for you to go to Emergency Room for evaluation. Since you have decided not to go , if you have any shortness of breath, chest pain, dizziness, feeling of doom or other symptoms, call 911 for an ambulance. Avoid caffeine products today, try to drink more fluids. Follow-up with Dr. Mendez66.9 Obesity, unspecifiedRecommendations:Avoid weight gain
[2019-04-09 19:04] LABS: ABS Eosinophils 0.1 10^3/ul (0-0.6); ABS Lymphocytes 1.7 10^3/ul (1.0-4.8); ABS Monocytes 0.4 10^3/ul (0-0.8); ABS Neutrophils 4.2 10^3/ul (1.5-7.7); Eosinophil % 1.3 %; Hematocrit 40 % (42-52); Hemoglobin 13.1 g/dL (14.0-18.0); Lymphocyte % 26.5 %; Mean Corpuscular HGB Conc 33 g/dL (31-36); Mean Corpuscular Hemoglobin 28 pg (27-31); Mean Corpuscular Volume 86 fL (80-94); Mean Platelet Volume 8.5 fL (7.4-10.4); Nucleated Red Blood Cells % 0.1; Platelet Count 265 10^3/uL (150-450); Red Blood Count 4.64 10^6 /uL (4.18-5.48); Red Cell Distribution Width 15 % (10.5-15); White Blood Count 6.5 10^3/uL (3.5-10.8)
[2019-04-09 19:23] LABS: Troponin I 0.01 ng/mL (<0.04)
[2019-04-09 19:24] LABS: Albumin 4.4 g/dL (3.2-5.2); Albumin/Globulin Ratio 1.3 (1-3); BUN/Creatinine Ratio 11.5 (8-20); Calcium 9.9 mg/dL (8.6-10.3); EGFR African American 80.9 (>60); EGFR Non-African American 66.9 (>60); Globulin 3.5 g/dL (2-4); Magnesium 1.8 mg/dL (1.9-2.7); Potassium 4.3 mmol/L (3.5-5.0); Total Bilirubin 0.5 mg/dL (0.2-1.0); Total Protein 7.9 g/dL (6.4-8.9)
[2019-04-09 20:04] LABS: TSH (Thyroid Stimulating Horm) 1.07 mcIU/mL (0.34-5.60)
--- NOTE | 2019-04-09 20:49 | ED ---
Palpitations / Dysrhythmia - HPI Summary HPI Summary: This patient is a 59 year old male presenting to [facility] with a chief complaint of episodes of tachycardia since this morning. The patient states he is generally asymptomic now in regards to his heart but has noticed his heart rate has been fast when he has checked it. The patient reports resolved symptoms of dizziness nausea, vomiting, and diarrhea. He states the patient recently got over a cold. He states when he has been non-compliant with some of his medications and believes his symptoms may be linked to this. The patient says he took his medications this morning. He has a Hx of SVT and DM. - History of Current Complaint Chief Complaint: EDDysrhythmPalp Time Seen by Provider: 04/09/19 20:42 Hx Obtained From: Patient, Family/Section Beamer Onset/Duration: Lasting Hours Severity Initially: Mild Severity Currently: Mild Character: Fast - Allergy/Home Medications Allergies/Adverse Reactions: Allergies Allergy/AdvReac Type Severity Reaction Status Date / Time shellfish derived Allergy Numbness Verified 07/13/18 12:20 And Tingling PMH/Surg Hx/FS Hx/Imm Hx Endocrine/Hematology History: Reports: Hx Diabetes - type 2 dm Cardiovascular History: Reports: Hx Congestive Heart Failure, Hx Hypercholesterolemia, Hx Pacemaker/ICD - external defib, Other Cardiovascular Problems/Disorders - SVT- ON ATENOLOL Denies: Hx Hypertension, Hx Myocardial Infarction History: Denies: Hx Renal Disease Sensory History: Reports: Hx Contacts or Glasses - GLASSES Denies: Hx Hearing Aid Opthamlomology History: Reports: Hx Contacts or Glasses - GLASSES Psychiatric History: Reports: Hx Depression - Surgical History Surgery Procedure, Year, and Place: TONSILLECTOMY 1971. I+D RIGHT FOOT SEVERAL YRS AGO Hx Anesthesia Reactions: No Infectious Disease History: No Infectious Disease History: Denies: Traveled Outside the [place] in Last 30 Days - Family History Known Family History: Positive: Hypertension, Diabetes Family History: CA - Social History Alcohol Use: None Alcohol Amount: pt drinks once or twice a month Hx Substance Use: No Substance Use Type: Reports: None Hx Tobacco Use: No Smoking Status (MU): Former Smoker Review of Systems Positive: Palpitations Positive: Vomiting, Diarrhea, Nausea Psychological: Other - Dizziness All Other Systems Reviewed And Are Negative: Yes Physical Exam - Summary Physical Exam Summary: Appearance: Well-appearing, Well-nourished, lying in bed comfortably Skin: Warm, dry, no obvious rash Eyes: sclera anicteric, no conjunctival pallor ENT: mucous membranes moist, pharynx appears normal Neck: Supple, nontender Respiratory: Clear to auscultation, no signs of respiratory distress Cardiovascular: Normal S1, S2. No murmurs. Normal distal pulses in tibial and radial bilaterally. Mild tachycardia. Abdomen: Soft, nontender, normal active bowel sounds present Musculoskeletal: Normal, Strength/ROM Intact Neurological: A&Ox3, awake and alert, mentation is normal, speech is fluent and appropriate Psychiatric: affect is normal, does not appear anxious or depressed Triage Information Reviewed: Yes Vital Signs On Initial Exam: Initial Vitals Temp Pulse Resp BP Pulse Ox 97.0 F 116 18 145/100 96 04/09/19 18:07 04/09/19 18:07 04/09/19 18:07 04/09/19 18:07 04/09/19 18:07 Vital Signs Reviewed: Yes Diagnostics - Vital Signs Vital Signs Temp Pulse Resp BP Pulse Ox 04/09/19 20:15 98.1 F 116 16 133/82 99 04/09/19 18:07 97.0 F 116 18 145/100 96 - Laboratory Lab Results: Lab Results 04/09/19 04/09/19 04/09/19 Range/Units 18:50 18:50 18:50 WBC 6.5 (3.5-10.8) 10^3/uL RBC 4.64 (4.18-5.48) 10^6 /uL Hgb 13.1 L (14.0-18.0) g/dL Hct 40 L (42-52) % MCV 86 (80-94) fL MCH 28 (27-31) pg MCHC 33 (31-36) g/dL RDW 15 (10.5-15) % Plt Count 265 (150-450) 10^3/uL MPV 8.5 (7.4-10.4) fL Neut % (Auto) 65.4 % Lymph % (Auto) 26.5 % [place] % (Auto) 6.3 % Eos % (Auto) 1.3 % Baso % (Auto) 0.5 % Absolute Neuts (auto) 4.2 (1.5-7.7) 10^3/ul Absolute Lymphs (auto) 1.7 (1.0-4.8) 10^3/ul Absolute Monos (auto) 0.4 (0-0.8) 10^3/ul Absolute Eos (auto) 0.1 (0-0.6) 10^3/ul Absolute Basos (auto) 0.0 (0-0.2) 10^3/ul Absolute Nucleated RBC 0.0 10^3/ul Nucleated RBC % 0.1 Sodium 136 (135-145) mmol/L Potassium 4.3 (3.5-5.0) mmol/L Chloride 100 L (101-111) mmol/L Carbon Dioxide 27 (22-32) mmol/L Anion Gap 9 (2-11) mmol/L BUN 13 (6-24) mg/dL Creatinine 1.13 (0.67-1.17) mg/dL Est GFR ( Amer) 80.9 (>60) Est GFR (Non-Af Amer) 66.9 (>60) BUN/Creatinine Ratio 11.5 (8-20) Glucose 249 H (70-100) mg/dL Lactic Acid 2.5 H* (0.5-2.0) mmol/L Calcium 9.9 (8.6-10.3) mg/dL Magnesium 1.8 L (1.9-2.7) mg/dL Total Bilirubin 0.50 (0.2-1.0) mg/dL AST 15 (13-39) U/L ALT 12 (7-52) U/L Alkaline Phosphatase 64 (34-104) U/L Troponin I 0.01 (<0.04) ng/mL Total Protein 7.9 (6.4-8.9) g/dL Albumin 4.4 (3.2-5.2) g/dL Globulin 3.5 (2-4) g/dL Albumin/Globulin Ratio 1.3 (1-3) TSH 1.07 (0.34-5.60) mcIU/mL Result Diagrams: 04/09/19 18:50 04/09/19 18:50 Lab Statement: Any lab studies that have been ordered have been reviewed, and results considered in the medical decision making process. - EKG 1804 Cardiac Rate: Tachycardia EKG Rhythm: Sinus Tachycardia - 115 BPM Summary of EKG Findings: P waves, QRS complex, and T waves are within normal limits, T waves and intervals are normal, no ischemic changes. Course/Dx - Course Course Of Treatment: This patient is a 59 year old male presenting to [facility] with a chief complaint of episodes of tachycardia. Labs reveal Glucose 249 H. Patient was instructed to better manage DM as he stated he has been non- compliant with some of his medication. A plan for discharge was discussed with the patient and he was agreeable with this plan. - Diagnoses Provider Diagnoses: Sinus tachycardia Discharge - Sign-Out/Discharge Documenting (check all that apply): Patient Departure - Discharge Patient Received Moderate/Deep Sedation with Procedure: No - Discharge Plan Condition: Stable Disposition: HOME Patient Education Materials: Tachycardia (ED) Referrals: Bismark Pacheco MD [Primary Care Provider] - 3 Days - Billing Disposition and Condition Condition: STABLE Disposition: Home - Attestation Statements Document Initiated by Colleen: Yes Documenting Scribe: Luiz Peterson Provider For Whom Colleen is Documenting (Include Credential): Warren Zapien MD Scribe Attestation: Luiz Dias scribed for Warren Zapien MD on 04/10/19 at 0459. Scribe Documentation Reviewed: Yes Provider Attestation: The documentation as recorded by the Luiz morales accurately reflects the service I personally performed and the decisions made by me, Warren Zapien MD Status of Scribe Document: Viewed
[2019-04-09 20:50] VITALS: BP 118/74
== END | disposition home or self-care (01) ==
LOC: ED 18:00
DX: R00.0 Tachycardia, unspecified (principal); E11.9 Type 2 diabetes mellitus without complications; Z87.891 Personal history of nicotine dependence; R42 Dizziness and giddiness
CPT/HCPCS: 36415; 80053; 83605; 83735; 84443; 84484; 85025; 93005; 99282

== ENCOUNTER 2019-09-07 20:04 | Emergency (ER) | payer OTHER ==
--- OUTSIDE RECORDS SUMMARY | 2019-09-07 20:10 | XMS REPORT | Continuity of Care Document ---
:1960 External Reference #:[id number] Author Name Kennedy Ingram M.D. (transmitted by agent of provider Stephanie Cooper) Address 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 Onset: 05/23/2018 Long-term current use of insulin Cinthya Carson M.D. Onset: 05/23/2018 Ulcer of foot Cinthya Carson M.D. Onset: 05/23/2018 Type 2 diabetes mellitus with ulcer Cinthya Carson M.D. Onset: 05/23/2018 Cardiomyopathy, unspecified Cinthya Carson M.D. Onset: 05/23/2018 Obstructive sleep apnea syndrome Zahira Peres DNP, RN, [employer]- Onset: Central sleep apnea syndrome Zahira Peres DNP RN, [employer]-BC Onset: 2018 Body mass index 30+ - obesity Zahira Peres DNP RN, [employer]-BC Onset: 2018 Social History Type Date Description Comments Sex Unknown ETOH Use Rarely consumes alcohol Tobacco Use Start: Unknown Patient has never smoked Recreational Drug Use Denies Drug Use Smoking Status Reviewed: 08/21/19 Patient has never smoked Exercise Type/Frequency Exercises rarely Allergies, Adverse Reactions, Alerts Description No Known Drug Allergies Medications Active Medications SIG Qnty Indications Ordering Date Provider Amiodarone HCL 1/2 tab every day. 90tabs Kennedy Vogt 02/16/2018 200mg Riana Ingram Tablets Eliquis 1 by mouth twice a 180tabs I42.9 Kennedy D. 02/14/2018 5mg Tablets day Brand, M.D. Vitamin D3 High 1 by mouth every day Unknown Potency 1000Unit Capsules Lisinopril 1 tablet by mouth Unknown 2.5mg daily Tablets Bisoprolol Fumarate take 2 t po hs 45tabs Kennedy D. Brand, M.D. 5mg Tablets Gisele Allergy 1 by mouth every day [...] sq daily Breiman, MD Bismark 100Unit/ML Sopn Immunizations Description No Information Available Vital Signs Date Vital Result Comment 08/21/2019 11:24am Height 76 inches 6'4" Weight 269.00 lb with shoes BP Systolic Sitting 94 mmHg lue reg cuff BP Diastolic Sitting 64 mmHg lue reg cuff BP Systolic Standing 100 mmHg lue reg cuff BP Diastolic Standing 62 mmHg lue reg cuff BMI (Body Mass Index) 32.7 kg/m2 Ejection Fraction 46% echo. 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 conditions classified elsewhere G47.33 Obstructive sleep apnea (adult) (pediatric) R06.82 Tachypnea, not elsewhere classified Office Visit 04/17/2019 [facility] Kennedy Vogt I42.9 Cardiomyopathy, 11:00a [facility] Riana Ingram unspecified [employer] Ass[employer] Accountant I48.4 Atypical atrial flutter Office Visit 04/09/2019 11:00a Pulmonology And Zahira G47.37 Central sleep [facility] Pe[facility] RN, apnea in [employer] Accountant FI[employer] FOREM[employer]-ORESTES conditions classified elsewhere G47.33 Obstructive sleep apnea (adult) (pediatric) R00.0 Tachycardia, unspecified Z68.32 Body mass index (BMI) 32.0-32.9, adult E66.9 Obesity, unspecified Assessments Date Code Description Provider 08/21/2019 I48.4 Atypical atrial flutter Kennedy Ingram M.D. 08/21/2019 I42.9 Cardiomyopathy, unspecified Kennedy Ingram M.D. 06/17/2019 G47.37 Central sleep apnea in conditions Zahira Peres DNP, RN , KATELYNN-ORESTES classified elsewhere 06/17/2019 G47.33 Obstructive sleep apnea (adult) Zahira Peres DNP, RN, MICHAEL (pediatric) 06/17/2019 R06.82 Tachypnea, not elsewhere classified Zahira Peres DNP, RN, [employer]-BC 04/17/2019 I42.9 Cardiomyopathy, unspecified Kennedy Ingram M.D. 04/17/2019 I48.4 Atypical atrial flutter Kennedy Ingram M.D. 04/09/2019 G47.37 Central sleep apnea in conditions Zahira Peres DNP, RN , [employer]-ORESTES classified elsewhere 04/09/2019 G47.33 Obstructive sleep apnea (adult) [facility] Peres DNP, RN, [facility] 04/09/2019 R00.0 Tachycardia, unspecified Zahira Peres DNP, RN, [facility] 04/09/2019 Z68.32 Body mass index (BMI) 32.0-32.9, Zahira Peres DNP, RN , [employer]- adult 04/09/2019 E66.9 Obesity, unspecified Zahira Peres DNP, RN, [employer]-BC Plan of Treatment Future Appointment(s):09/17/2019 10:30 am - Zahira Peres DNP, RN, [facility]- at [facility]08/21/2019 - Kennedy Ingram M.D.I48.4 Atypical atrial flutterFollow up:6 monthsRecommendations:Stop Amiodarone Continue Eliquis and other medsI42.9 Cardiomyopathy, unspecified Functional Status Description No Information Available Mental Status Description No Information Available Referrals Description No Information Available
[2019-09-07 20:21] VITALS: BP 107/78
--- NOTE | 2019-09-07 21:07 | UC ---
Dizzy HPI HPI Summary: The patient is a 59-year-old male with a 2 day history of nausea, vomiting, and near syncope. He did have some dyspnea on exertion yesterday morning. He denies any chest pain or abdominal pain. He denies any headaches. He did denies any palpitations. He is a diabetic and has a severe cardiomyopathy with an ejection fraction of about 25%. He has had no fever. He does not check his blood sugar. - History Of Current Complaint Chief Complaint: UCDizziness Stated Complaint: NAUSEA, DIZZY Time Seen by Provider: 09/07/19 20:29 Hx Obtained From: Patient Onset/Duration: Gradual Onset Timing: Constant Severity Initially: Moderate Severity Currently: Moderate Pain Intensity: 2 Pain Scale Used: 0-10 Numeric Character: Lightheaded - near syncopal Aggravating Factor(s): Position Change Alleviating Factor(s): Nothing Associated Signs And Symptoms: Positive: Nausea, Vomiting - X5-6, SOB - yesterday, Unsteady Gait. Negative: Diaphoresis, Tinnitus, Chest Pain, Palpitations, Visual Changes, Decreased Oral Intake, Change In Medication, Change In Diet, OTC Medications - . Another 1 each time. - Allergies/Home Medications Allergies/Adverse Reactions: Allergies Allergy/AdvReac Type Severity Reaction Status Date / Time shellfish derived Allergy Numbness Verified 09/07/19 20:21 And Tingling Home Medications: Home Medications Desipramine TAB* [Norpramin TAB*] 1 tab PO BEDTIME 09/07/19 [History Confirmed 09/07/19] PMH/Surg Hx/FS Hx/Imm Hx Previously Healthy: Yes Endocrine History: Dyslipidemia Cardiovascular History: Hypertension, Congestive Heart Failure, Other Other Cardiovascular History: severe cardiomyopathy (EF <25 %) - Surgical History Surgical History: Yes Surgery Procedure, Year, and Place: TONSILLECTOMY 1971. I+D RIGHT FOOT SEVERAL YRS AGO. cardiac cath 2017- diagnostic - Family History Known Family History: Positive: Hypertension, Diabetes Family History: [place] - Social History Alcohol Use: None Alcohol Amount: pt drinks once or twice a month Substance Use Type: None Smoking Status (MU): Former Smoker - Immunization History Most Recent Influenza Vaccination: many years ago Most Recent Pneumonia Vaccination: never Review of Systems All Other Systems Reviewed And Are Negative: Yes Constitutional: Positive: Negative Skin: Positive: Negative Eyes: Positive: Negative ENT: Positive: Negative Respiratory: Positive: Negative, Shortness Of Breath - with exertion yesterday AM Cardiovascular: Positive: Negative Gastrointestinal: Positive: Vomiting, Nausea Genitourinary: Positive: Negative Motor: Positive: Negative Neurovascular: Positive: Negative Musculoskeletal: Positive: Negative Neurological: Positive: Negative Psychological: Positive: Negative Physical Exam Triage Information Reviewed: Yes Appearance: Well-Appearing, No Pain Distress, Well-Nourished Vital Signs: Initial Vital Signs Temp 96.9 F 09/07/19 20:16 Pulse 118 09/07/19 20:16 Resp 20 09/07/19 20:16 BP 107/78 09/07/19 20:16 Pulse Ox 97 09/07/19 20:16 Vital Signs Reviewed: Yes Eyes: Positive: Conjunctiva Clear ENT: Positive: Hearing grossly normal. Negative: Nasal congestion, Nasal drainage, Muffled voice, Hoarse voice Neck: Positive: Supple Respiratory: Positive: Lungs clear, Normal breath sounds, No respiratory distress Cardiovascular: Positive: RRR, Tachycardia Abdomen Description: Positive: Nontender, No Organomegaly Musculoskeletal: Positive: ROM Intact, No Edema Neurological: Positive: Alert Psychological Exam: Normal Skin Exam: Normal - Additional Comments unable to check orthostatic VS- near syncopal when he attempts to sit up Diagnostics - Laboratory Lab Results: BS: out of range x 2 - EKG Cardiac Rate: Tachycardia Cardiac Rhythm: Sinus: Normal Ectopy: None ST Segment: Non-Specific EKG Comparison: No Significant Change Dizzy Course/Dx - Course Course Of Treatment: d/w Dr Mueller to [facility] via EMS - Differential Dx/Diagnosis Provider Diagnosis: Near syncope, Blood glucose elevated, Vomiting Discharge ED - Sign-Out/Discharge Documenting (check all that apply): Patient Departure All imaging exams completed and their final reports reviewed: No Studies - Discharge Plan Condition: Stable Disposition: TRANS HIGHER L OF CARE FAC Referrals: Bismark Pacheco MD [Primary Care Provider] - - Billing Disposition and Condition Condition: STABLE Disposition: Trans Higher Lvl of Care Fac
== END 2019-09-07 21:20 | disposition short-term general hospital (02) ==
LOC: UCEAST 20:04
DX: R55 Syncope and collapse (principal); I10 Essential (primary) hypertension; R73.09 Other abnormal glucose; R11.2 Nausea with vomiting, unspecified; Z87.891 Personal history of nicotine dependence
CPT/HCPCS: 93005; 99213; G0463

== ENCOUNTER 2019-09-07 21:48 | Emergency (ER) | payer OTHER ==
[2019-09-07] MEDS ORDERED: Ondansetron INJ* 2 MG/ML VIAL IV ONE (22:05)
[2019-09-07] MEDS ORDERED: NS 0.9% 1000 ML** 1,000 ML IV ONE ×2 (22:05→23:00)
[2019-09-07] MEDS ORDERED: Pantoprazole IV* 40 MG IV ONE (22:05)
--- NOTE | 2019-09-07 22:20 | ED ---
GI/ HPI - HPI Summary HPI Summary: This patient is a 59 year old male brought in by EMS presenting to [facility] with a chief complaint of nausea and vomiting for 2 days. He states he has been dizzy when he would get up to go to the bathroom, and states this dizziness has gotten progressively worse throughout the day today. He states he went to [facility] for this problem and was told to come here. He has a Hx of CHF, diabetes, and sleep apnea. He denies fever, chest pain, cough, SOB. - History of Current Complaint Chief Complaint: EDAbdPain Time Seen by Provider: 09/07/19 22:03 Stated Complaint: ABD PAIN PER EMS Hx Obtained From: Patient Onset/Duration: Started Days Ago Timing: Lasting Days Pain Intensity: 0 Associated Signs and Symptoms: Positive: Dizziness, Nausea, Vomiting - Additional Pertinent History Primary Care Physician: MERARI - Allergy/Home Medications Allergies/Adverse Reactions: Allergies Allergy/AdvReac Type Severity Reaction Status Date / Time shellfish derived Allergy Numbness Verified 09/07/19 20:21 And Tingling PMH/Surg Hx/FS Hx/Imm Hx Endocrine/Hematology History: Reports: Hx Diabetes - type 2 dm Cardiovascular History: Reports: Hx Congestive Heart Failure, Hx Hypercholesterolemia, Hx Pacemaker/ICD - external defib, Other Cardiovascular Problems/Disorders - SVT- ON ATENOLOL Denies: Hx Hypertension, Hx Myocardial Infarction History: Denies: Hx Renal Disease Sensory History: Reports: Hx Contacts or Glasses - GLASSES Denies: Hx Hearing Aid Opthamlomology History: Reports: Hx Contacts or Glasses - GLASSES Psychiatric History: Reports: Hx Depression - Surgical History Surgery Procedure, Year, and Place: TONSILLECTOMY 1971. I+D RIGHT FOOT SEVERAL YRS AGO. cardiac cath 2018- diagnostic Hx Anesthesia Reactions: No Infectious Disease History: No Infectious Disease History: Denies: Traveled Outside the [place] in Last 30 Days - Family History Known Family History: Positive: Hypertension, Diabetes Family History: CA - Social History Alcohol Use: None Alcohol Amount: pt drinks once or twice a month Hx Substance Use: No Substance Use Type: Reports: None Hx Tobacco Use: No Smoking Status (MU): Former Smoker Review of Systems Negative: Fever Negative: Chest Pain Negative: Shortness Of Breath, Cough Positive: Vomiting, Nausea Neurological: Other - Dizziness All Other Systems Reviewed And Are Negative: Yes Physical Exam - Summary Physical Exam Summary: General: Obese MALE. No acute distress. HEENT: Normocephalic, Atraumatic. Eyes: Conjuctiva normal, PERRL. Ears: TMs within normal limits. Nares: (-) discharge, (-) erythema. Oropharynx: Clear, mucous membranes moist, (-) exudates. Neck: Soft, FROM, (-) lymphadenopathy, (-) thyromegaly, (-) JVD. Cardiovascular: Normal sinus rhythm, (-) murmur. Lungs: Clear to auscultation bilaterally (-) wheezes, (-) rales, (-) rhonchi. Abdomen: Soft, non-tender, non-distended, (-) organomegaly, normal bowel sounds. Back: (-) CVA tenderness Extremities: No edema. Skin: Warm, dry, (-) rash. Neuro: Alert and oriented x3, no focal deficits. Psychiatric: Mood normal, affect normal. Triage Information Reviewed: Yes Vital Signs On Initial Exam: Initial Vitals Temp Pulse Resp BP Pulse Ox 97.4 F 113 16 134/91 98 09/07/19 21:50 09/07/19 21:50 09/07/19 21:50 09/07/19 21:50 09/07/19 21:50 Vital Signs Reviewed: Yes Procedures - Sedation Patient Received Moderate/Deep Sedation with Procedure: No Diagnostics - Vital Signs Vital Signs Temp Pulse Resp BP Pulse Ox 09/07/19 21:50 97.4 F 113 16 134/91 98 - Laboratory Result Diagrams: 09/07/19 21:15 09/07/19 21:15 Lab Statement: Any lab studies that have been ordered have been reviewed, and results considered in the medical decision making process. Re-Evaluation - Re-Evaluation First Eval Re-Evaluation Time: 00:17 Change: Improved Comment: Patient states he is feeling better. Second Eval Re-Evaluation Time: 02:31 Change: Improved Comment: Patient tolerated crackers and garrett pao. GIGU Course/Dx - Course Course Of Treatment: This patient is a 59 year old male brought in by EMS presenting to [facility] with a chief complaint of nausea and vomiting for 2 days. Labs are unremarkable except Hgb 13.9 L, Sodium 132 L, Chloride 97 L, Anion Gap 12 H, Creatinine 1.37 H, Glucose 465 H, 3.2 H, Amylase 28 L. - Diagnoses Provider Diagnoses: Dizziness, Dehydration Discharge ED - Sign-Out/Discharge Documenting (check all that apply): Patient Departure - Discharge - Discharge Plan Condition: Stable Disposition: HOME Patient Education Materials: Dehydration (ED) Referrals: Bismark Pacheco MD [Primary Care Provider] - Additional Instructions: Return to ED with new or worsening symptoms. - Billing Disposition and Condition Condition: STABLE Disposition: Home - Attestation Statements Document Initiated by Jessicaiblucero: Yes Documenting Scribe: Luiz Peterson Provider For Whom Colleen is Documenting (Include Credential): Nora Mueller MD Scribe Attestation: Luiz Dias, scribed for Nora Mueller MD on 09/08/19 at 0431. Scribe Documentation Reviewed: Yes Provider Attestation: The documentation as recorded by the scribe, Luiz Peterson accurately reflects the service I personally performed and the decisions made by me, Nora Mueller MD Status of Scribe Document: Viewed
[2019-09-07 22:27] LABS: ABS Lymphocytes 1.2 10^3/ul (1.0-4.8); ABS Monocytes 0.4 10^3/ul (0-0.8); ABS Neutrophils 6.8 10^3/ul (1.5-7.7); Eosinophil % 0.4 %; Hematocrit 42 % (42-52); Hemoglobin 13.9 g/dL (14.0-18.0); Lymphocyte % 14.3 %; Mean Corpuscular HGB Conc 33 g/dL (31-36); Mean Corpuscular Hemoglobin 29 pg (27-31); Mean Corpuscular Volume 86 fL (80-94); Mean Platelet Volume 9.4 fL (7.4-10.4); Platelet Count 240 10^3/uL (150-450); Red Blood Count 4.86 10^6 /uL (4.18-5.48); Red Cell Distribution Width 14 % (10-15); White Blood Count 8.5 10^3/uL (3.5-10.8)
[2019-09-07 22:29] LABS: Albumin 4.3 g/dL (3.2-5.2); Albumin/Globulin Ratio 1.2 (1-3); BUN/Creatinine Ratio 12.4 (8-20); Calcium 10.2 mg/dL (8.6-10.3); EGFR African American 64.8 (>60); EGFR Non-African American 53.6 (>60); Globulin 3.6 g/dL (2-4); Magnesium 1.5 mg/dL (1.9-2.7); Potassium 4.8 mmol/L (3.5-5.0); Total Bilirubin 0.8 mg/dL (0.2-1.0); Total Protein 7.9 g/dL (6.4-8.9)
[2019-09-07 22:31] LABS: Troponin I 0.01 ng/mL (<0.04)
[2019-09-07 23:33] LABS: Urine Appearance Cloudy; Urine Bacteria Absent (Absent); Urine Bilirubin Negative (Negative); Urine Blood Negative (Negative); Urine Color Yellow; Urine Glucose 3+(>=500 mg/dL) (Negative); Urine Ketones 1+ (Negative); Urine Nitrite Negative (Negative); Urine Protein 1+(30 mg/dL) (Negative); Urine Red Blood Cell Absent (Absent); Urine Specific Gravity 1.033 (1.010-1.030); Urine Urobilinogen Negative (Negative); Urine White Blood Cell Absent (Absent)
[2019-09-08 02:29] VITALS: BP 125/85
== END 2019-09-08 03:27 | disposition home or self-care (01) ==
LOC: ED 21:48
DX: R42 Dizziness and giddiness (principal); E86.0 Dehydration; E11.9 Type 2 diabetes mellitus without complications; I47.1 Supraventricular tachycardia; Z95.810 Presence of automatic (implantable) cardiac defibrillator; Z91.013 Allergy to seafood; Z87.891 Personal history of nicotine dependence
CPT/HCPCS: 36415; 80053; 81003; 81015; 82150; 83605; 83690; 83735; 83880; 84484; 85025; 86140; 87040; 96361; 96374; 96375; 99283; J2405

== ENCOUNTER 2020-03-15 21:48 | Observation (INO) ==
[2020-03-16 00:28] LABS: ABS Eosinophils 0.1 10^3/ul (0-0.6); ABS Lymphocytes 1.8 10^3/ul (1.0-4.8); ABS Monocytes 0.4 10^3/ul (0-0.8); Eosinophil % 2.1 %; Hematocrit 38 % (42-52); Hemoglobin 12.8 g/dL (14.0-18.0); Lymphocyte % 39.9 %; Mean Corpuscular HGB Conc 34 g/dL (31-36); Mean Corpuscular Hemoglobin 29 pg (27-31); Mean Corpuscular Volume 87 fL (80-94); Mean Platelet Volume 8.8 fL (7.4-10.4); Platelet Count 231 10^3/uL (150-450); Red Blood Count 4.41 10^6 /uL (4.18-5.48); Red Cell Distribution Width 14 % (10-15); White Blood Count 4.5 10^3/uL (3.5-10.8)
[2020-03-16 00:45] LABS: Albumin 4.1 g/dL (3.2-5.2); Albumin/Globulin Ratio 1.3 (1-3); BUN/Creatinine Ratio 12.2 (8-20); EGFR African American 73.1 (>60); EGFR Non-African American 60.4 (>60); Globulin 3.1 g/dL (2-4); Magnesium 1.6 mg/dL (1.9-2.7); Potassium 4.6 mmol/L (3.5-5.0); Total Bilirubin 0.3 mg/dL (0.2-1.0); Total Protein 7.2 g/dL (6.4-8.9)
[2020-03-16 00:46] LABS: Troponin I 0.01 ng/mL (<0.03)
[2020-03-16] MEDS ORDERED: Magnesium Sulfate IV 1GM/100ML 1 GM/100 ML BAG IV ONE (01:53)
[2020-03-16] MEDS ORDERED: NS 0.9% 1000 ml BAG 1,000 ML IV ONE ×2 (03:52→04:01)
[2020-03-16] MEDS ORDERED: Dextrose 50% Syringe 50 ml 25 GM/50 ML SYRINGE IV PUSH PRN (05:31)
[2020-03-16] MEDS: NS 0.9% 1000 ml BAG 1,000 ML IV SCH ×2 (06:44→20:18)
[2020-03-16] MEDS: DULoxetine DR 60 mg CAP PO SCH ×2 (09:01→20:21)
[2020-03-16] MEDS: Desipramine 50 mg TAB PO SCH ×3 (09:01→20:19)
[2020-03-16] MEDS: Insulin GLARGINE 100 un/ml (*) 10 ml VIAL SUBCUT SCH (09:01)
[2020-03-16] MEDS: Insulin LISPRO 100 units/ml(*) SUBCUT SCH ×3 (09:05→17:33)
[2020-03-16 16:05] LABS: Urine Appearance Clear; Urine Bilirubin Negative (Negative); Urine Blood Negative (Negative); Urine Color Yellow; Urine Glucose 3+(>=500 mg/dL) (Negative); Urine Ketones Trace (Negative); Urine Nitrite Negative (Negative); Urine Protein Negative (Negative); Urine Specific Gravity 1.032 (1.010-1.030); Urine Urobilinogen Negative (Negative)
[2020-03-17 06:36] LABS: BUN/Creatinine Ratio 11.8 (8-20); Calcium 9.3 mg/dL (8.6-10.3); EGFR African American 83.2 (>60); EGFR Non-African American 68.8 (>60); Potassium 4.1 mmol/L (3.5-5.0)
[2020-03-17] MEDS: DULoxetine DR 60 mg CAP PO SCH (09:20)
[2020-03-17] MEDS: Insulin GLARGINE 100 un/ml (*) 10 ml VIAL SUBCUT SCH (09:21)
[2020-03-17] MEDS: Desipramine 50 mg TAB PO SCH (09:24)
[2020-03-17] MEDS: Insulin LISPRO 100 units/ml(*) SUBCUT SCH ×2 (09:25→12:51)
[2020-03-17] MEDS: NS 0.9% 1000 ml BAG 1,000 ML IV SCH (09:47)
[2020-03-17 14:41] VITALS: BP 95/67
== END 2020-03-17 17:30 | disposition home or self-care (01) ==
LOC: MEDTELE 21:48 → ED 21:48 → MEDTELE 03-16 06:26
PROVIDERS: ADMIT Hospitalist; ATTEND Family Medicine

== ENCOUNTER 2022-07-08 19:46 | Inpatient (IN) ==
[2022-07-08] MEDS ORDERED: Lactated Ringers 1000 ml BAG 1,000 ML IV ONE (20:20)
[2022-07-08 21:02] LABS: ABS Lymphocytes 0.3 10^3/ul (1.0-4.8); ABS Neutrophils 5.3 10^3/ul (1.5-7.7); Eosinophil % 0.4 %; Hematocrit 23 % (42-52); Hemoglobin 7.3 g/dL (14.0-18.0); Lymphocyte % 4.5 %; Mean Corpuscular HGB Conc 32 g/dL (31-36); Mean Corpuscular Hemoglobin 28 pg (27-31); Mean Corpuscular Volume 89 fL (80-94); Platelet Count 250 10^3/uL (150-450); Red Blood Count 2.59 10^6 /uL (4.18-5.48); Red Cell Distribution Width 15 % (10-15); White Blood Count 5.7 10^3/uL (3.5-10.8)
[2022-07-08 21:07] LABS: INR 1.35 (0.89-1.11)
[2022-07-08 21:52] LABS: Calcium 8.3 mg/dL (8.6-10.3); Potassium 3.8 mmol/L (3.5-5.0); Total Bilirubin 1.1 mg/dL (0.2-1.0); eGFR CKD-EPI 95.2 (>60)
[2022-07-08 22:32] LABS: High Sensitivity Troponin 1 Hr 4 pg/mL (<20)
[2022-07-09] MEDS ORDERED: Lactated Ringers 1000 ml BAG 1,000 ML IV SCH (04:00)
[2022-07-09] MEDS ORDERED: Dextrose 50% Syringe 50 ml 25 GM/50 ML SYRINGE IV PUSH PRN ×2 (06:25→06:26)
[2022-07-09 08:17] LABS: Urine Appearance Clear; Urine Color Yellow; Urine Glucose Trace (100mg/dL) (Negative)
[2022-07-09 08:18] LABS: Urine Bilirubin Negative (Negative); Urine Blood Negative (Negative); Urine Ketones Negative (Negative); Urine Nitrite Negative (Negative); Urine Protein 1+ (30 mg/dL) (Negative); Urine Specific Gravity 1.015 (1.005-1.030); Urine Urobilinogen 0.2 (Negative) (Negative)
[2022-07-09 08:19] LABS: Urine Bacteria Absent (Absent); Urine Red Blood Cell Absent (Absent); Urine White Blood Cell Absent (Absent)
[2022-07-09 08:39] LABS: Corrected Retic Count 0.3 % (0.5-1.5); Hematocrit 22 % (42-52); Hematocrit for Retic CNT 22 % (42-52); Hemoglobin 7.2 g/dL (14.0-18.0); Immature Retic Fraction 0.12; Mean Corpuscular HGB Conc 33 g/dL (31-36); Mean Corpuscular Hemoglobin 29 pg (27-31); Mean Corpuscular Volume 87 fL (80-94); Mean Platelet Volume 7.8 fL (7.4-10.4); Platelet Count 243 10^3/uL (150-450); RBC Retic Count 2.52 10^6/uL (4.18-5.48); Red Blood Count 2.52 10^6 /uL (4.18-5.48); Red Cell Distribution Width 15 % (10-15); White Blood Count 3.3 10^3/uL (3.5-10.8)
[2022-07-09] MEDS ORDERED: Empagliflozin 25 MG TAB PO SCH (09:00)
[2022-07-09] MEDS ORDERED: Insulin GLARGINE 100 un/ml 10 ml VIAL SUBCUT SCH (09:00)
[2022-07-09] MEDS: Cholecalciferol (VIT D3) 1,000 unit TAB PO SCH (09:32)
[2022-07-09] MEDS: DULoxetine DR 60 mg CAP PO SCH (09:34)
[2022-07-09 09:44] LABS: TSH Ultra Thyroid Stim Horm 0.68 mcIU/mL (0.34-5.60)
[2022-07-09 11:49] LABS: Hematocrit 22 % (42-52); Hemoglobin 7.1 g/dL (14.0-18.0); Mean Corpuscular HGB Conc 33 g/dL (31-36); Mean Corpuscular Hemoglobin 29 pg (27-31); Mean Corpuscular Volume 88 fL (80-94); Mean Platelet Volume 7.6 fL (7.4-10.4); Platelet Count 239 10^3/uL (150-450); Red Blood Count 2.47 10^6 /uL (4.18-5.48); Red Cell Distribution Width 15 % (10-15); White Blood Count 3.2 10^3/uL (3.5-10.8)
[2022-07-09 11:50] LABS: ABS Lymphocytes 0.3 10^3/ul (1.0-4.8); ABS Monocytes 0.1 10^3/ul (0-0.8); ABS Neutrophils 2.8 10^3/ul (1.5-7.7); Eosinophil % 0.3 %; Lymphocyte % 8.1 %
[2022-07-09 11:59] LABS: Hepatitis B Surface Antigen Nonreactive (Nonreactive)
[2022-07-09 12:04] LABS: Hepatitis A Ab IgM Negative (Negative)
[2022-07-09 12:05] LABS: Hepatitis B Core IgM Nonreactive (Nonreactive)
[2022-07-09 12:17] LABS: Hepatitis C Antibody Negative (Negative)
[2022-07-09 12:32] LABS: Albumin 2.9 g/dL (3.2-5.2); Calcium 8.1 mg/dL (8.6-10.3); Potassium 3.8 mmol/L (3.5-5.0); Total Bilirubin 0.9 mg/dL (0.2-1.0); Total Protein 5.9 g/dL (6.4-8.9); eGFR CKD-EPI 101.7 (>60)
[2022-07-09] MEDS ORDERED: Polyethylene Glycol 3350 17 GM PACKET PO PRN (18:16)
[2022-07-09 19:23] LABS: Hematocrit 24 % (42-52); Mean Corpuscular HGB Conc 33 g/dL (31-36); Mean Corpuscular Hemoglobin 29 pg (27-31); Mean Corpuscular Volume 87 fL (80-94); Mean Platelet Volume 7.2 fL (7.4-10.4); Platelet Count 227 10^3/uL (150-450); Red Blood Count 2.79 10^6 /uL (4.18-5.48); Red Cell Distribution Width 16 % (10-15)
[2022-07-09] MEDS: Lactated Ringers 1000 ml BAG 1,000 ML IV SCH (19:39)
[2022-07-10 05:54] LABS: Hematocrit 22 % (42-52); Hemoglobin 7.5 g/dL (14.0-18.0); Mean Corpuscular HGB Conc 34 g/dL (31-36); Mean Corpuscular Hemoglobin 29 pg (27-31); Mean Corpuscular Volume 86 fL (80-94); Mean Platelet Volume 7.5 fL (7.4-10.4); Platelet Count 214 10^3/uL (150-450); Red Blood Count 2.55 10^6 /uL (4.18-5.48); Red Cell Distribution Width 16 % (10-15); White Blood Count 3.2 10^3/uL (3.5-10.8)
[2022-07-10 06:41] LABS: ABS Lymphocytes 0.4 10^3/ul (1.0-4.8); ABS Monocytes 0.1 10^3/ul (0-0.8); ABS Neutrophils 2.6 10^3/ul (1.5-7.7); Eosinophil % 1.1 %; Lymphocyte % 12.6 %
[2022-07-10] MEDS: Lactated Ringers 1000 ml BAG 1,000 ML IV SCH ×2 (08:55→17:50)
[2022-07-10] MEDS: DULoxetine DR 60 mg CAP PO SCH (09:34)
[2022-07-10] MEDS: Cholecalciferol (VIT D3) 1,000 unit TAB PO SCH (09:35)
[2022-07-11] MEDS: Lactated Ringers 1000 ml BAG 1,000 ML IV SCH (02:40)
[2022-07-11 05:47] LABS: Hematocrit 26 % (42-52); Hemoglobin 8.9 g/dL (14.0-18.0); Mean Corpuscular HGB Conc 34 g/dL (31-36); Mean Corpuscular Hemoglobin 29 pg (27-31); Mean Corpuscular Volume 86 fL (80-94); Mean Platelet Volume 7.4 fL (7.4-10.4); Platelet Count 198 10^3/uL (150-450); Red Blood Count 3.02 10^6 /uL (4.18-5.48); Red Cell Distribution Width 16 % (10-15); White Blood Count 3.5 10^3/uL (3.5-10.8)
[2022-07-11 06:02] LABS: ABS Lymphocytes 0.3 10^3/ul (1.0-4.8); ABS Monocytes 0.2 10^3/ul (0-0.8); ABS Neutrophils 2.9 10^3/ul (1.5-7.7); Eosinophil % 0.4 %; Lymphocyte % 9.8 %; Nucleated Red Blood Cells % 0.2
[2022-07-11 06:27] LABS: Albumin 2.6 g/dL (3.2-5.2); Calcium 7.8 mg/dL (8.6-10.3); Globulin 2.6 g/dL (2-4); Potassium 3.7 mmol/L (3.5-5.0); Total Bilirubin 0.8 mg/dL (0.2-1.0); Total Protein 5.2 g/dL (6.4-8.9); eGFR CKD-EPI 111.1 (>60)
[2022-07-11] MEDS: Cholecalciferol (VIT D3) 1,000 unit TAB PO SCH (08:44)
[2022-07-11] MEDS: DULoxetine DR 60 mg CAP PO SCH (08:44)
[2022-07-11 11:52] VITALS: BP 118/64
== END 2022-07-11 13:33 | disposition home or self-care (01) | DRG 312 ==
LOC: ED 19:46 → EDHOLD 07-09 02:21 → SUATTDRO 07-09 02:21 → MED 07-09 12:31
PROVIDERS: ADMIT Internal Medicine; ATTEND Internal Medicine Hematology & Oncology

== ENCOUNTER 2022-09-03 23:43 | Observation (INO) ==
[2022-09-04] MEDS ORDERED: Piperacillin/Tazobac ADVAN 3.375 GM in NS 0.9% 100 ml BAG 100 ML IV ONE (00:16)
[2022-09-04] MEDS ORDERED: Morphine 4 MG/ML VIAL (1 ml) IV ONE (00:52)
[2022-09-04 01:20] LABS: Activated Partial Thrombo Time 30.6 seconds (26.0-38.0); Albumin 2.6 g/dL (3.2-5.2); Calcium 8.9 mg/dL (8.6-10.3); INR 1.48 (0.89-1.11); Potassium 3.2 mmol/L (3.5-5.0)
[2022-09-04 01:23] LABS: Hematocrit 26 % (42-52); Hemoglobin 8.3 g/dL (14.0-18.0); Mean Corpuscular HGB Conc 32 g/dL (31-36); Mean Corpuscular Hemoglobin 28 pg (27-31); Mean Corpuscular Volume 88 fL (80-94); Mean Platelet Volume 8.5 fL (7.4-10.4); Platelet Count 317 10^3/uL (150-450); Red Blood Count 2.94 10^6 /uL (4.18-5.48); Red Cell Distribution Width 18 % (10-15); White Blood Count 15.1 10^3/uL (3.5-10.8)
[2022-09-04 01:26] LABS: Albumin/Globulin Ratio 0.9 (1-3); C Reactive Protein 108.05 mg/L (<8.01); Globulin 2.9 g/dL (2-4); Total Protein 5.5 g/dL (6.4-8.9); eGFR CKD-EPI 95.2 (>60)
[2022-09-04] MEDS ORDERED: Iodixanol (CONTRAST) 320 MG/ML 100 ML SDV IV ONE (01:35)
[2022-09-04 01:45] LABS: Total Bilirubin 16.5 mg/dL (0.2-1.0)
[2022-09-04 02:19] LABS: Anisocytosis 2+; Hypochromasia 2+; Microcytosis 1+
[2022-09-04 02:21] LABS: Target Cells 2+
[2022-09-04 02:23] LABS: ABS Lymphocytes 0.8 10^3/ul (1.0-4.8); ABS Neutrophils 13.4 10^3/ul (1.5-7.7)
[2022-09-04 02:29] LABS: High Sensitivity Troponin 1 Hr 13 pg/mL (<20)
[2022-09-04] MEDS: KCL 20 MEQ/100 ML IVPREMIX 20 MEQ/100 ML BAG IV SCH ×2 (03:56→06:04)
[2022-09-04] MEDS ORDERED: Ondansetron 4 mg VIAL 2 MG/ML 2 ml VIAL IV PRN (04:57)
[2022-09-04] MEDS ORDERED: Morphine 2 MG/ML SYRINGE IV PRN (04:57)
[2022-09-04] MEDS ORDERED: Atropine 1% (ORAL/SL) 15 ML BTL SL PRN (04:57)
[2022-09-04] MEDS ORDERED: NS 0.9% 1000 ml BAG 1,000 ML IV SCH (05:00)
[2022-09-04] MEDS ORDERED: ZOSYN 3.375 GM Q8H per EXTENDED INFUSION IV SCH (06:45)
[2022-09-04] MEDS ORDERED: Zosyn per Pharmacy NOTE FOLLOW UP SCH (07:00)
[2022-09-04 08:37] VITALS: BP 104/65
[2022-09-04] MEDS: ZOSYN 3.375 GM Q8H per EXTENDED INFUSION IV SCH ×2 (11:46→20:23)
[2022-09-05] MEDS: ZOSYN 3.375 GM Q8H per EXTENDED INFUSION IV SCH (03:56)
== END 2022-09-05 13:35 | disposition hospice, home (50) ==
LOC: EDHOLD 23:43 → ED 23:43 → SUATTDRO 09-04 04:57 → MED 09-04 08:20
PROVIDERS: ADMIT Hospitalist; ATTEND Internal Medicine